=== PATIENT | male | born 1950 | race Caucasian/White ===

== ENCOUNTER → 2023-06-03 | Outpatient (CLI) | payer MEDICARE, SELFPAY ==
--- OUTSIDE RECORDS SUMMARY | 2023-06-03 09:54 | XMS RPT_ITS | CCD ---
Author Name Unknown Address [address] [place] [address] Organization [employer] Care Team Providers Care Bail Agent Name Role Phone Pavan Aguirre Primary Care Provider Robert Saucedo Unavailable Unavailable Pavan Aguirre Unavailable Unavailable Pavan Aguirre Unavailable Unavailable Ronny Callaway Unavailable Unavailable Pavan Aguirre Primary Care Provider [phone] Pavan Aguirre Unavailable Unavailable Unavailable Pavan Aguirre PA-C Primary Care [facility] er PAVAN AGUIRRE Primary Care Unavaila LEYLA De Leon Referring Unavailable LEYLA DAMON Attending Unavailable Pavan Agiurre PA-C Primary Care [facility] er KRISTINA CARVAJAL Referring Unavailab PAVAN Polanco Primary Care Unavaila PORFIRIO Bolden Attending PORFIRIO Gambino Referring PORFIRIO Gambino Primary Care PORFIRIO Gambino Attending PORFIRIO Gambino Referring PORFIRIO Gambino Primary Care PORFIRIO Gambino Attending PORFIRIO Gambino Referring PORFIRIO Gambino Primary Care Pavan Gambino PA-C Primary Care Provider Ms Norah. Pavan Jacksonh Referring Unav ailable [place], Ms. Pavan Leticia Attending Unav ailable Norah, Ms. [facility] Primary Care Unav ailable PAVAN AGUIRRE Attending Unavailable PAVAN AGUIRRE Primary Care Unavailable PAVAN AGUIRRE Attending Unavailable PAVAN AGUIRRE Primary Care Unavailable PAVAN AGUIRRE Attending Unavailable PAVAN AGUIRRE Primary Care Unavailable Norah MONROY, [facility] Provid er NORAH, [facility] Unavaila ble HEIDI TEJEDA Attending Unavailable NORAH [facility] Unavaila KRISTINA Sands Attending Unavailab KRISTINA Bangura Referring Unavailab KRISTINA Bangura Admitting Unavailab le NORAH, [facility] Unavaila ble LEYLA DAMON [facility] Un[facility]YLA DAMON Admitting Unavailable LEYLA DAMON [facility] LEYLA DAMON Attending Unavailable NORAH, [facility] Unavaila ble KRISTINA CARVAJAL Attending Unavailab le NORAH, [facility] Care Unavaila ble NORAH, [facility] Unavaila ble KRISTINA CARVAJAL Attending Unavailab le NORAH, [facility] Unavaila ble KRISTINA CARVAJAL Attending Unavailab KRISTINA Bangura Admitting Unavailab le NORAH, [facility] Unavaila ble KRISTINA CARVAJAL Referring Unavailab le NORAH, [facility] Unavaila KRISTINA Sands Admitting Unavailab KRISTINA Bangura Referring Unavailab le NORAH, [facility] Unavaila ble GENTRY CHAN Attending Unavailable LEYLA DAMON Admitting Unavailable LEYLA DAMON Referring Unavailable [place], [facility] Unavaila ble CRISTEL TEJEDA Attending Unavailable LEYLA DAMON Admitting Unavailable DAMONLEYLA CASPER Referring Unavailable NORAH, [facility] Unavaila ble YOGESH MARVIN Attending Unavailable LEYLA DAMON Admitting Unavailable DAMONLEYLA Referring Unavailable RENEE, KRISTINA AVILES Admitting Unavailab le NORAH, [facility] Unavaila ble CRISTEL TEJEDA Attending Unavailable RENEE, KRISTINA AVILES Referring Unavailab le RENEE, KRISTINA AVILES Referring Unavailab le RENEE, KRISTINA AVILES Admitting Unavailab le NORAH, [facility] Unavaila ble YOGESH MARVIN Attending Unavailable NORAH, [facility] Unavaila ble GENTRY CHAN Attending Unavailable DAMONLEYLA Admitting Unavailable DAMON, LEYLA KELLEY Referring Unavailable NORAH, [facility] Unavaila ble DAMON, LEYLA KELLEY Admitting Unavailable DAMONLEYLA Referring Unavailable JOSE LOZANO Attending Unavailable NORAH, [facility] Unavaila ble DAMONLEYLA Admitting Unavailable DAMONLEYLA Referring Unavailable JOSE LOZANO Att[facility] DAMON, LEYLA KELLEY Admitting Unavailable DAMONLEYLA Referring Unavailable JOSE LOZANO Attending [facility] DAMONLEYLA Referring Unavailable DAMONLEYLA Attending Unavailable RENEE, KRISTINA AVILES Attending Unavailab le RENEE, KRISTINA AVILES Admitting Unavailab le NORAH, [facility] Unavaila ble RENEE, KRISTINA AVILES Admitting Unavailab le NORAH, [facility] Unavaila ble Allergies Allergy Classification Reported Allergen(s) Allergy Type Date of Onset Reaction(s) Facility Adrenergic Antagonists (3 sources) Terazosin; Translations: [Hytrin] Drug Allergy Dizziness [facility] Work Phone: Angiotensin Converting Enzyme (GRETA) Inhibitors (3 sources) Lisinopril; Translations: [lisinopril] Drug Allergy Cough [facility] Work Phone: (20 sources) Lisinopril; Translations: [lisinopril] Drug Allergy 2 Cough, Other (See Comments) [facility] (16 sources) Terazosin; Translations: [Hytrin] Drug Allergy Dizziness [facility] Work Phone: (20 sources) Terazosin; Translations: [TERAZOSIN] Drug Allergy 2 Other (See Comments), Dizziness [facility] (20 sources) cloNIDine; Translations: [CLONIDINE] Drug Allergy 2 Other (See Comments) [facility] (20 sources) hydrALAZINE; Translations: [HYDRALAZINE] Drug Allergy 2 Headache [facility] (20 sources) hydroCHLOROthiaz tadeo; Translations: [HYDROCHLOROTHIA ZIDE] Drug Allergy 2 Other (See Comments) [facility] Medications Current Medications Medication Drug Class(es) Dates Sig (Normalized) Sig (Original) acetaminophen 500 mg oral tablet (20 sources) take 2 tablets by mouth once daily as needed acetaminophen (TYLENOL) 500 MG tablet Take 2 (two) tablets (1,000 mg total) by mouth once daily Takes as needed . 0 Active amLODIPine 10 mg oral tablet (20 sources) Dihydropyridine [facility] Start: 02-25-2022 End: 01-07-2023 take 1 tablet by mouth once daily amLODIPine (Norvasc) 10 mg tablet Indications: Benign essential hypertension Take 1 tablet (10 mg) by mouth once daily. 90 tablet 3 01/07/2023 Active Completed/Discontinued Medications Medication Drug Class(es) Dates Sig (Normalized) Sig (Original) acetaminophen 325 mg / HYDROcodone bitartrate 5 mg oral tablet (8 sources) Opioid Agonist Start: 04-01-2022 End: 04-08-2022 HYDROcodone-acetam inophen (NORCO) 5-325 mg per tablet Indications: Status post total replacement of left hip [The details of the medication are not available because there are pending changes by a home health clinician.] 40 tablet 0 04/01/2022 04/08/2022 ascorbic acid 60 mg / beta carotene 5000 unt / copper sulfate 40 mg / dl-alpha tocopheryl acetate 30 unt / sodium selenite 0.04 mg / zinc oxide 40 mg oral tablet (1 source) Vitamin C take 1 tablet by mouth once daily Multi Vitamin/Minerals Oral Tablet TAKE 1 TABLET DAILY. Refills: 0 Active Calcium-Vitamin D TABS (1 source) Vitamin D Calcium-Vitamin D TABS 1 TAB DAILY Refills: 0 Active Calcium-Vitamin D TABS (18 sources) Calcium-Vitamin D TABS 1 TAB DAILY Quantity: 0 Refills: 0 Ordered: 23-Jun-2019 DO Active cloNIDine (20 sources) Central alpha-2 Adrenergic Agonist End: 03-03-2022 CLONIDINE HCL ORAL Take by mouth . 0 03/03/2022 Discontinued (Side effects) Problems Active Problems Problem Classification Problem Date Documented Date Episodic/Chronic Anxiety disorders (20 sources) Anxiety; Translations: [Other anxiety states] Onset: 01-06-2022 01-06-2022 Chronic Disorders of lipid metabolism (20 sources) Mixed hyperlipidemia; Translations: [Mixed hyperlipidemia] Onset: 01-06-2022 01-06-2022 Chronic Essential hypertension (20 sources) Benign essential hypertension; Translations: [Benign essential hypertension] Onset: 07-05-2022 Chronic Glaucoma (20 sources) Glaucoma; Translations: [Unspecified glaucoma] Onset: 07-05-2022 07-05-2022 Chronic Heart valve disorders (1 source) Aortic valve regurgitation; Translations: [Nonrheumatic aortic (valve) insufficiency] Chronic Hyperplasia of prostate (20 sources) Benign prostatic hyperplasia; Translations: [Hypertrophy (benign) of prostate without urinary obstruction and other lower urinary tract symptom (LUTS)] Onset: 01-06-2022 01-06-2022 Chronic Immunizations and screening for infectious disease (20 sources) Patient encounter status; Translations: [Need for prophylactic vaccination and inoculation against unspecified single disease] Episodic Joint disorders and dislocations; trauma-related (20 sources) Articular cartilage disorder of shoulder region; Translations: [Glenoid labrum tear] Onset: 07-05-2022 07-05-2022 Chronic Osteoarthritis (20 sources) Osteoarthritis of joint of left shoulder region; Translations: [Osteoarthrosis, localized, primary, shoulder region] Onset: 01-14-2022 Resolved: 08-20-2022 Chronic Other aftercare (2 sources) Aftercare following joint replacement surgery; Translations: [Aftercare following joint replacement surgery] Onset: 04-01-2022 Chronic Other aftercare (2 sources) Encounter for follow-up examination after completed treatment for conditions other than malignant neoplasm; Translations: [Encounter for follow-up examination after completed treatment for conditions other than malignant neoplasm] Onset: 05-15-2023 Episodic Other and ill-defined heart disease (1 source) Left ventricular hypertrophy; Translations: [Cardiomegaly] Chronic Other connective tissue disease (2 sources) History of repair of hip joint; Translations: [Presence of left artificial hip joint] Chronic Other connective tissue disease (2 sources) Presence of left artificial hip joint; Translations: [Presence of left artificial hip joint] Onset: 04-01-2022 Chronic Other connective tissue disease (7 sources) History of reverse prosthetic total arthroplasty of left shoulder; Translations: [Presence of left artificial shoulder joint] Onset: 05-26-2023 04-15-2023 Chronic Other connective tissue disease (4 sources) Presence of left artificial shoulder joint; Translations: [Presence of left artificial shoulder joint] Onset: 04-15-2023 Chronic Other connective tissue disease (2 sources) Complete rotator cuff tear or rupture of left shoulder, not specified as traumatic; Translations: [Complete rotator cuff tear or rupture of left shoulder, not specified as traumatic] Onset: 02-10-2023 Episodic Other ear and sense organ disorders (15 sources) Otalgia; Translations: [Otalgia, unspecified] Episodic Other male genital disorders (1 source) Impotence; Translations: [Erectile dysfunction] Chronic Other male genital disorders (20 sources) Male erectile dysfunction, unspecified; Translations: [Erectile dysfunction] Onset: 07-05-2022 07-05-2022 Chronic Other nervous system disorders (3 sources) Other specified disorders of brain; Translations: [Other specified disorders of brain] Onset: 01-15-2023 Chronic Other nervous system disorders (16 sources) Arachnoid cyst; Translations: [Cerebral cysts] Onset: 01-27-2023 01-27-2023 Chronic Other nervous system disorders (16 sources) Encephalomalacia; Translations: [Other specified disorders of brain] Onset: 01-15-2023 01-27-2023 Chronic Other nervous system disorders (2 sources) Cerebral cysts; Translations: [Cerebral cysts] Onset: 01-27-2023 Chronic Other nervous system disorders (19 sources) Trigeminal neuralgia; Translations: [Trigeminal neuralgia] Episodic Other nervous system disorders (3 sources) Left trigeminal neuralgia; Translations: [Trigeminal neuralgia] Onset: 07-05-2022 07-05-2022 Episodic Other nutritional; endocrine; and metabolic disorders (20 sources) Obesity; Translations: [Obesity, unspecified] Onset: 01-06-2022 01-06-2022 Chronic Other nutritional; endocrine; and metabolic disorders (3 sources) Body mass index 30+ - obesity; Translations: [Body Mass Index 31.0-31.9, adult] Chronic Other nutritional; endocrine; and metabolic disorders (2 sources) Other obesity due to excess calories; Translations: [Other obesity due to excess calories] Onset: 08-20-2022 Chronic Other nutritional; endocrine; and metabolic disorders (2 sources) Body mass index (BMI) 33.0-33.9, adult; Translations: [Body mass index (BMI) 33.0-33.9, adult] Onset: 08-20-2022 Chronic Other nutritional; endocrine; and metabolic disorders (2 sources) Body mass index 25-29 - overweight; Translations: [Body Mass Index 28.0-28.9, adult] Episodic Other nutritional; endocrine; and metabolic disorders (1 source) Overweight in adulthood with body mass index of 25 or more but less than 30; Translations: [Body Mass Index 28.0-28.9, adult] Episodic Residual codes; unclassified (20 sources) Obstructive sleep apnea of adult; Translations: [Obstructive sleep apnea (adult)(pediatric)] Onset: 07-05-2022 07-05-2022 Chronic Residual codes; unclassified (2 sources) Obstructive sleep apnea (adult) (pediatric); Translations: [Obstructive sleep apnea (adult) (pediatric)] Onset: 07-05-2022 Chronic Residual codes; unclassified (1 source) Edema of lower extremity; Translations: [Localized edema] Episodic Residual codes; unclassified (3 sources) Memory impairment; Translations: [Other amnesia] Onset: 01-27-2023 01-07-2023 Episodic Residual codes; unclassified (5 sources) Other amnesia; Translations: [Other amnesia] Onset: 01-07-2023 Episodic Spondylosis; intervertebral disc disorders; other back problems (20 sources) Degeneration of intervertebral disc; Translations: [Degeneration of intervertebral disc, site unspecified] Onset: 07-05-2022 07-05-2022 Chronic Sprains and strains (1 source) Glenoid labrum tear; Translations: [Degenerative tear of glenoid labrum of left shoulder] Episodic Past or Other Problems Problem Classification Problem Date Documented Date Episodic/Chronic Deficiency and other anemia (20 sources) Anemia; Translations: [Anemia, unspecified] Onset: 01-06-2022 Resolved: 08-20-2022 01-06-2022 Episodic Diabetes mellitus without complication (20 sources) Impaired glucose tolerance; Translations: [Impaired glucose tolerance test (oral)] Onset: 07-05-2022 07-05-2022 Episodic Osteoarthritis (1 source) Osteoarthritis of joint of left shoulder region; Translations: [Primary osteoarthritis of left shoulder] Other connective tissue disease (20 sources) Nontraumatic complete rupture of rotator cuff of left shoulder; Translations: [Complete rotator cuff tear or rupture of left shoulder, not specified as traumatic] Onset: 02-10-2023 02-03-2023 Episodic Other ear and sense organ disorders (6 sources) Pain of ear structure; Translations: [Otalgia, unspecified] Onset: 07-05-2022 Resolved: 08-20-2022 08-20-2022 Episodic Other non-traumatic joint disorders (20 sources) Shoulder pain; Translations: [Pain in joint, shoulder region] Onset: 07-05-2022 Resolved: 08-20-2022 08-20-2022 Episodic Other non-traumatic joint disorders (13 sources) Hip pain; Translations: [Pain in joint, pelvic region and thigh] Onset: 07-05-2022 Resolved: 08-20-2022 08-20-2022 Episodic Other screening for suspected conditions (not mental disorders or infectious disease) (20 sources) Decreased testosterone level ; Translations: [Other nonspecific findings on examination of blood] Onset: 02-14-2019 Episodic Results Test Name Value Interpretation Reference Range Facil ity Vital Signs Date Time Vital Sign Value Performing Clinician Faci [facility] 03-13-2023 14:26-040 Body height 180.3 cm Kristina Carvajal MD Work Phone: [facility] 03-13-2023 14:26-0400 Body mass index (BMI) [Ratio] 32.36 kg/m2 Kristina Carvajal MD Work Phone: [facility] 03-13-2023 14:26-0400 Body weight 105.23 kg Kristina Carvajal MD Work Phone: [facility] 03-13-2023 14:26-0400 Diastolic blood pressure 81 mm[Hg] Kristina Carvajal MD Work Phone: [facility] 03-13-2023 14:26-0400 Heart rate 78 /min Kristina Carvajal MD Work Phone: [facility] 03-13-2023 14:26-0400 Systolic blood pressure 135 mm[Hg] Kristina Carvajal MD Work Phone: [facility] 03-12-2023 10:55-0400 Body height 180.3 cm Joint [facility] 03-12-2023 10:55-0400 Body mass index (BMI) [Ratio] 32.36 kg/m2 [facility] 03-12-2023 10:55-0400 Body weight 105.23 kg [facility] 03-12-2023 10:55-0400 Diastolic blood pressure 82 mm[Hg] [facility] 03-12-2023 10:55-0400 Heart rate 70 /min [facility] 03-12-2023 10:55-0400 SaO2% (BldA) [Mass fraction] 95 % [facility] 03-12-2023 10:55-0400 Systolic blood pressure 147 mm[Hg] [facility] 02-03-2023 09:03-0400 Body height 180.3 cm Leyla Damon CNP Work Phone: [facility] 01-27-2023 09:03-0400 Body height 180.3 cm Pavan Aguirre PA-C Work Phone: [facility] 01-27-2023 09:03-0400 Body mass index (BMI) [Ratio] 32.64 kg/m2 Pavan Aguirre PA-C Work Phone: [facility] 01-27-2023 09:03-0400 Body weight 106.14 kg Pavan Aguirre PA-C Work Phone: [facility] 01-27-2023 09:03-0400 Diastolic blood pressure 88 mm[Hg] Pavan Corinth PA-C Work Phone: [facility] 01-27-2023 09:03-0400 Heart rate 71 /min Pavan Norah PA-C Work Phone: [facility] 01-27-2023 09:03-0400 Systolic blood pressure 132 mm[Hg] Pavan Norah PA-C Work Phone: [facility] 01-07-2023 15:02-0400 Body height 180.3 cm Pavan Corinth PA-C Work Phone: [facility] 01-07-2023 15:02-0400 Body mass index (BMI) [Ratio] 32.92 kg/m2 Pavan Corinth PA-C Work Phone: [facility] 01-07-2023 15:02-0400 Body weight 107.05 kg Pavan Norah PA-C Work Phone: [facility] 01-07-2023 15:02-0400 Diastolic blood pressure 84 mm[Hg] Pavan Norah PA-C Work Phone: [facility] 01-07-2023 15:02-0400 Heart rate 76 /min Pavan Norah PA-C Work Phone: [facility] 01-07-2023 15:02-0400 Systolic blood pressure 136 mm[Hg] Pavan Corinth PA-C Work Phone: [facility] 01-06-2023 13:27-0400 Body height 180.3 cm Leyla Damon [employer] Work Phone: [facility] 01-06-2023 13:27-0400 Body mass index (BMI) [Ratio] 33.05 kg/m2 Leyla Damon [employer] Work Phone: [facility] 01-06-2023 13:27-0400 Body weight 107.5 kg Leyla Damon [employer] Work Phone: [facility] 08-19-2022 10:00-0400 Diastolic blood pressure 82 mm[Hg] Heidi Tejeda MD Work Phone: [facility] Encounters Encounter Date Encounter Type Care Provider Facility Start: 06-02-2023 ambulatory KRISTINA CARVAJAL [facility] Start: 06-02-2023 End: 06-02-2023 ambulatory Kristina Carvajal MD Work Phone: [facility] Procedures Date Procedure Procedure Detail Performing Clinician Start: 08-11-2022 Lipid 1996 panel - S lorena or Plasma Pavan Aguirre PA-C Work Phone: Start: 03-03-2022 Ecg routine ecg w/le ast 12 lds w/i&r Heidi Tejeda MD Work Phone: Start: 11-21-2019 Blood count complete auto&auto difrntl wbc Robert Saucedo Start: 11-21-2019 Comprehensive metabo lic 2000 panel Robert Sheryl Start: 11-21-2019 Hemoglobin glycosyla da a1c Robert Saucedo Start: 11-21-2019 Lipid panel Robert Almanza angela Start: 11-21-2019 PSA screening Robert Pablo reyes Start: 05-27-2019 Magnetic resonance imaging External Transcribed Start: 05-27-2019 End: 05-27-2019 Radiographic imaging procedure External Transcribed Start: 02-14-2019 [object Object] Plan of Treatment Date Care Activity Detail Author Start: 08-12-2027 Lipid panel Lipid Panel [facility] Start: 05-14-2027 Screening for malign ant neoplasm of colon [facility] Start: 08-22-2023 Medicare Annual Wellness Visit Medicare Annual Wellness Visit (AWV) [facility] Start: 08-21-2023 History and physical examination, annual for health maintenance Wellness Visit [facility] Start: 08-19-2023 End: 08-19-2023 Patient encounter procedure 08/19/2023 9:00 AM EDT Office Visit [facility] [address] [place] [phone] Pavan Aguirre PA-C [address] [place] [id number] [facility] Start: 08-12-2023 Diabetes mellitus screening Diabetes Screening [facility] Start: 08-12-2023 Hemoglobin A1c measurement Diabetes: Hemoglobin A1C [facility] Start: 06-04-2023 End: 06-04-2023 ambulatory [facility] Start: 06-02-2023 End: 06-02-2023 ambulatory 06/02/2023 8:30 AM EST [facility] [address] [place] [address] Kristina Carvajal MD [address] [place] [address] Yogesh Marvin PTA Discharge Disposition: Home [facility] Start: 05-15-2023 End: 05-15-2023 Follow-up encounter 05/15/2023 2:45 PM EST Follow-Up [facility] [address] [place] [address] Kristina Carvajal MD [address] [place] [address] [facility] Start: 04-15-2023 End: 04-15-2023 Follow-up encounter 04/15/2023 3:45 PM EST Follow-Up [facility] [address] [place] [address] Kristina Carvajal MD [address] [place] [address] [facility] Start: 04-01-2023 End: 04-01-2023 Admission to same day surgery center 04/01/2023 11:58 AM EDT - 04/01/2023 2:16 PM EDT Surgery [facility] [address] [place] [address] Kristina Carvajal MD [address] [place] [address] Left total shoulder replacement, possible reverse total shoulder replacement [facility] Immunizations Immunization Date Immunization Notes Care Provider Fa cility 03-07-2022 Pfizer COVID-19 Vac Bivalent 30 MCG/0.3ML Intramuscular Suspension Pavan Aguirre Work Phone: [facility] 02-05-2022 Fluzone High-Dose Quadrivalent 0.7 ML Intramuscular Suspension Prefilled Syringe; Translations: [Fluzone High-Dose Quadrivalent 0.7 ML Intramuscular Suspension Prefilled Syringe] Pavan Aguirre Work Phone: [facility] Work Phone: Payers Date Payer Category Payer Medicare [id number] 2021 Medicare [id number] 2018 Unknown [employer] S UPER[employer] PPO xxxxxxxxxxxx 2018-Present [id number] 2018 Unknown M[employer] UPER[employer] PPO [id number] 2018-Present [id number] 1950 Unknown [id number] 2.16.840.1.503282.3.579.2 .900 1950 Unknown [id number] 2.16.840.1.469871.3.579.2 .903 1950 Unknown [id number] 2.16.840.1.929044.3.579.2 .356 1950 Unknown [id number] 2.16.840.1.087839.3.579.2 .356 1950 Unknown [id number] 2.16.840.1.817093.3.579.2 .356 1950 Unknown [id number] 2.16.840.1.332616.3.579.2 .1069 1950 Unknown [id number] 2.16.840.1.497498.3.579.2 .1244 1950 Unknown [id number] 2.16.840.1.866601.3.579.2 .1244 1950 Unknown [id number] 2.16.840.1.820675.3.579.2 .1244 1950 Unknown [id number] 2.16.840.1.755529.3.579.2 .903 1950 Unknown [id number] 2.16.840.1.731609.3.579.2 .903 1950 Unknown [id number] 2.16.840.1.635168.3.579.2 .903 1950 Unknown [id number] 2.16.840.1.551373.3.579.2 .903 1950 Unknown [id number] 2.16.840.1.635405.3.579.2 .903 1950 Unknown [id number] 2.16.840.1.823232.3.579.2 .903 1950 Unknown [id number] 2.16.840.1.957962.3.579.2 .903 1950 Unknown [id number] 2.16.840.1.514556.3.579.2 .903 1950 Unknown [id number] 2.16.840.1.571446.3.579.2 .903 1950 Unknown [id number] 2.16.840.1.988545.3.579.2 .903 1950 Unknown [id number] 2.16.840.1.243170.3.579.2 .903 1950 Unknown [id number] 2.16.840.1.729519.3.579.2 .903 1950 Unknown [id number] 2.16.840.1.096275.3.579.2 .903 1950 Unknown [id number] 2.16.840.1.934289.3.579.2 .90 1950 Unknown [id number] 2.16.840.1.384399.3.579.2 .903 1950 Unknown [id number] 2.16.840.1.758031.3.579.2 .90 1950 Unknown [id number] 2.16.840.1.067096.3.579.2 .903 1950 Unknown [id number] 2.16840.1.265971.3.579.2 .90 1950 Unknown [id number] 2.16.840.1.513909.3.579.2 .903 1950 Unknown [id number] 2.16.840.1.529576.3.579.2 .903 1950 Unknown [id number] 2.16840.1.304075.3.579.2 .903 1950 Unknown [id number] 2.16840.1.394264.3.579.2 .90 1950 Unknown [id number] 2.16840.1.930715.3.579.2 .903 Private Health Insurance [id number] Unknown Social History Date Type Detail Facility Start: 05-18-2019 End: 01-06-2022 Tobacco smoking status NHIS Never smoker [facility] Start: 05-18-2019 Alcohol intake Ex-drinker (finding) [facility] Start: 1950 Sex Assigned At Not on file [facility] Start: 05-18-2019 End: 01-06-2022 Tobacco use and exposure Never used [facility] Start: 01-06-2022 End: 05-16-2023 Non-smoker Non-smoker -[facility] Work Phone: Start: 01-06-2022 End: 06-02-2023 Alcohol intake Current drinker of alcohol (finding) [facility] Start: 12-27-2021 End: 01-07-2023 Exposure to SARS-CoV-2 (event) Not sure [facility] Start: 03-13-2022 Alcohol Comment occasional wine [facility] Start: 01-07-2023 End: 05-16-2023 Tobacco use panel [facility] Work Phone: Start: 08-20-2022 Alcohol Comment SOMETIMES [facility] Work Phone: Start: 05-17-2019 Gender identity Identifies as male gender (finding) [facility] Start: 05-17-2019 Sexual orientation Heterosexual (finding) [facility] Medical Equipment Procedure Code Equipment Code Equipment Origin al Text Equipment Identifier Dates Head 36mm/+5 Fem V40 Biolox Delta - [id number] FDA Start: 03-31-2022 Insert 9 X 39mm C 7.5 Hum Retentive Reversed Ascend Flex - [id number] Start: 04-01-2023 Functional Status Date Assessment Result Facility NEGATED: Highlighted row Functional performance Functional status health issues are not documented [facility] Work Phone: Mental Status Date Assessment Result Facility NEGATED: Highlighted row Cognitive function [Interpretation] Cognitive status health issues are not documented [facility] Work Phone: Clinical Notes 04-30-2021 to 06-02-2023 Yogesh Marvin, TELEPHONE INTERVIEWER - 06/02/2023 8:30 AM Cristel Baez PT - 05/26/2023 3:15 PM Larissa Graham LPN - 04/06/2023 3:47 PM Nikki Brown - Bita Valdez RN - 03/12/2023 1:04 PM EDT Note Date & Type Note Facility 06-02-2023 History of Presen t illness Narrative [facility] OUTPATIENT REHABILITATION DAILY TREATMENT NOTE Today's Date 06/02/2023 Patient Name: Franco Clayton Date of : 1950 Current Visit #: 2 Authorized Visits: [id number] Case Name: Status post reverse arthroplasty of left shoulder History: Pre-Treatment Pain Scale: 0 Symptoms: gradually improved Functional Diagnosis: No diagnosis found. Clinical Information: Subjective: Pt reports no pain but twinges of pain with certain movements. Pt limited with reaching behind back and across body d/t weakness and tightness. Pt compliant with HEP. Objective Treatments: Physical Therapy Exercise Log - 06/02/2327 OTHER Precautions/Contraindications Status post reverse arthroplasty of left shoulder 04/01/23, progressive strengthening Notes Visit 1: 8:30 - 9:15 Therapeutic Exercise (44250) Intervention UBE - x4 min L4 fwd/back alt every minute Parameters doorway pec stretch, IR, ER stretch - 20 sec x3 Intervention Posterior capsule stretch - 20 sec x3 Parameters Cane ext, and up back - x15 Intervention Rows, Ext - x20 L3 Parameters HABD, ER - x15 RTB Parameters Access Code: [email or web address] URL: [email or web address] Date: 05/26/2023 Prepared by: Cristel Tejeda Exercises - Isometric Shoulder Flexion at Wall - 1-2 x daily - 5 reps - 5 seconds hold - Isometric Shoulder Abduction at Wall - 1-2 x daily - 5 reps - 5 seconds hold - Isometric Shoulder Extension at Wall - 1-2 x daily - 5 reps - 5 seconds hold - Sidelying Shoulder External Rotation - 1 x daily - 1-3 sets - 10 reps - Standing Single Arm Elbow Flexion with Resistance - 1 x daily - 3 sets - 10 reps - Standing Elbow Extension with Self-Anchored Resistance - 1 x daily - 7 x weekly - 3 sets - 10 reps - Scaption with Dumbbells - 1 x daily - 7 x weekly - 3 sets - 10 reps - Standing Shoulder Flexion to 90 Degrees with Dumbbells - 1 x daily - 7 x weekly - 3 sets - 10 reps - Single Arm Serratus Punches in Supine with Dumbbell - 1 x daily - 7 x weekly - 3 sets - 10 reps PT Treatment Times Therex Total Time 45 Direct Treatment Time 45 Total Treatment Time 45 Goals: Physical Therapy Ortho Goals: Patient will demonstrate good adherence to HEP recommendations and current restrictions. 2 weeks Patient will be independent with HEP. 4 weeks Patient will demonstrate improved AROM shoulder flexion and scaption 120+ to reach, self care, dress with ease. 2-3 weeks. Patient will demonstrate improved shoulder strength 4+/5 for ease of light ADLs. 2-3 weeks Patient will improve FOTO score to at least 70 (predicted) from 62 to show MDC/MCII and expected functional outcome.2-3 weeks Patient Education: Quality of movement with patient demonstrated understanding. Post-Treatment Pain Scale: 0 Assessment: Patient had an expected response to treatment. Skilled Intervention demonstrated by modifications of treatment per exercise log including increased load and safety interventions per exercise log. Progress towards goals as expected. Plan for Next Visit: Treatment Visit with focus on strengthening and ROM progression Yogesh Marvin PTA STATE LICENSE, [id number] documented in this encounter [facility] 05-26-2023 History of Presen t illness Narrative [facility] OUTPATIENT REHABILITATION Evaluation Today's Date 05/26/2023 Patient Name: Franco Clayton Date of : 1950 Case Name: Status post reverse arthroplasty of left shoulder Functional Diagnosis: 1. Status post reverse arthroplasty of left shoulder Clinical Information: Subjective Referring Diagnosis: Status post reverse arthroplasty of left shoulder History of Present Illness Surgery Date: 04/01/2023 Days Post-Op: 55 Subjective History: Patient presents to physical therapy S/P reverse TSA on 04/01/2023. He reports recovering well. He has good motion and strength is getting back. He reports twinges here and there at shoulder with certain motion. But no consistent pain and not taking any medication for pain. He has been using arm for self care, ADLs. He would like to learn some exercises to improve reaching behind and and cross arm. He has been compliant with exercises at home. Pain Scale Pain location: shoulder Average Pain: 0/10 Pain at highest: 2/10 (twinging sometimes with certain motion) Personal Goals: Wants to learn some exercises to improve strength Social Support: Zoroastrian, social, or cultural considerations to be made aware of before starting treatment: No Sleep Assessment Average Sleep: always had hard time sleeping. Sleep disturbance: Sleep Disturbance Zoroastrian, social, or cultural considerations to be made aware of before starting treatment: No Shoulder Left Shoulder Range of Motion: Flexion: Active: 110 Passive: 122 Abduction: Active: 95 Passive: 105 ER 0 deg.: Active: 50 (@45) Muscle Strength: Flexion: 4+ Abduction: 4 IR: 4 ER: 4+ Treatments: Physical Therapy Exercise Log - 05/26/23 1536 OTHER Precautions/Contraindications Status post reverse arthroplasty of left shoulder 04/01/23, progressive strengthening Therapeutic Exercise (52657) Parameters Access Code: [email or web address] URL: [email or web address] Date: 05/26/2023 Prepared by: Cristel Tejeda Exercises - Isometric Shoulder Flexion at Wall - 1-2 x daily - 5 reps - 5 seconds hold - Isometric Shoulder Abduction at Wall - 1-2 x daily - 5 reps - 5 seconds hold - Isometric Shoulder Extension at Wall - 1-2 x daily - 5 reps - 5 seconds hold - Sidelying Shoulder External Rotation - 1 x daily - 1-3 sets - 10 reps - Standing Single Arm Elbow Flexion with Resistance - 1 x daily - 3 sets - 10 reps - Standing Elbow Extension with Self-Anchored Resistance - 1 x daily - 7 x weekly - 3 sets - 10 reps - Scaption with Dumbbells - 1 x daily - 7 x weekly - 3 sets - 10 reps - Standing Shoulder Flexion to 90 Degrees with Dumbbells - 1 x daily - 7 x weekly - 3 sets - 10 reps - Single Arm Serratus Punches in Supine with Dumbbell - 1 x daily - 7 x weekly - 3 sets - 10 reps Treatment Plan: Frequency of Visits: twice per week Duration: 2-3 weeks Interventions: Therapeutic Exercise (91461) and Manual Therapy (15570) Rehab Potential: Good Goals: Physical Therapy Ortho Goals: Patient will demonstrate good adherence to HEP recommendations and current restrictions. 2 weeks Patient will be independent with HEP. 4 weeks Patient will demonstrate improved AROM shoulder flexion and scaption 120+ to reach, self care, dress with ease. 2-3 weeks. Patient will demonstrate improved shoulder strength 4+/5 for ease of light ADLs. 2-3 weeks Patient will improve FOTO score to at least 70 (predicted) from 62 to show MDC/MCII and expected functional outcome.2-3 weeks Patient Education provided: Patient was educated about the condition, precautions, and physical therapy plan of care. Clinical Impression: Pt is a 72 y.o. year old male who presented to the clinic with L reverse TSA. Upon assessment, pt has been found with the following impairments: functional ROM, decreased strength and endurance and coordination. 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 Pt to be discharged from OP PT services if/when goals are met, if they fail to make progress with conservative management in PT, if their level of progress plateaus, or if they do not maintain compliance with attendance or HEP. At this time, it is my clinical judgment that services are medically necessary. Cristel Tejeda, PT STATE LICENSE, [id number] documented in this encounter [facility] 04-06-2023 History of Presen t illness Narrative I spoke w Franco today and he says the shoulder is doing fine, no troubles w minimal pain. His swelling is about the same w some swelling into his upper arm, he does use ice on the shoulder. He continues to do his exercises, the swelling limits him but they are getting easier. His dressing has a few small spots of drainage and is intact. He did have some constipation and used the Miralax w good results yesterday. He denies any trouble w urination, no nausea, appetite is good and he is drinking his fluids. He tells me he gets a little light headed off and on. I questioned him about his narcotic usage but he has not had any for days. He did say he thought he was getting enough fluids but he will start to write down and keep track of that. He is taking 325mg ASA bid, 500mg Keflex tid, documented in this encounter [facility] 03-12-2023 Note Formatting of this n ote might be different from the original. Patient established Goals at [facility]. 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 Goals: Increase range of motion, movement of left arm above the shoulder Pain Goal: 09/08 If you have sleep apnea and have a CPAP/BIPAP mask, please bring it with you the day of surgery.Pt does not report any of the following: Ascites Fluid restriction: CHF, ESRD, Osakis's, Insulin pump for blood glucose control difficulty swallowing Neurological disease NPO due to alternative nutrition or IV nutrition Achalasia Severe gastroparesis Hiatal Hernia Severe GERD Partial or Total gastrectomy Gastric resection History of whipple procedure requiring jejunostomy tube placement Pt is a candidate for carb loading drink process. 3-8 oz Boost bottles given with instructions documented in this encounter [facility] 03-12-2023 History of Presen t illness Narrative Patient completed the Home Safety Assessment on date of [facility], with all questions answered. A copy of the Home Safety Assessment and surveys were provided. Care Management Consult Note Date: 03/12/2023 Time: 10:23 AM Patient Name: Franco Clayton Date of : 1950 Reason for Consult: Discharge Plan: Discharging Transportation Plan: Discharge Plan Status: Met with Franco Clayton during [place] on 03/12/2023. The patient is scheduled to have left Shoulder replacement surgery with Dr Carvajal on 03/30/2023. He lives with his , Ignacia, in a 1 story home with 3 steps and bilateral handrails to enter. She will assist the patient after surgery. The bedroom, bathroom, and laundry are all on the first floor. The bathroom has a walk-in shower with grab bars and a seat. The commode is handicap accessible with grab bars. Franco Clayton is not anticipated to need any home health care, but if he does, he wants [facility]. A referral will be made. Gave him a list for the [facility]. 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 Verified Franco Clayton address and phone number. Franco Clayton feels safe at home. Franco Clayton does have prescription coverage by [employer] and denies any financial concerns. MADINA Barboza Assessment and Background Information: Living Arrangements: Spouse/significant other Support Systems: Spouse/significant other Type of Residence: Private residence Prior to Admission Home Care Services: No documented in this encounter [facility] 03-12-2023 Note Formatting of this n ote is different from the original. If you have sleep apnea and have a CPAP/BIPAP mask, please bring it with you the day of surgery.Pt does not report any of the following: Ascites Fluid restriction: CHF, ESRD, Osakis's, Insulin pump for blood glucose control difficulty swallowing Neurological disease NPO due to alternative nutrition or IV nutrition Achalasia Severe gastroparesis Hiatal Hernia Severe GERD Partial or Total gastrectomy Gastric resection History of whipple procedure requiring jejunostomy tube placement Pt is a candidate for carb loading drink process. 3-8 oz Boost bottles given with instructions [facility] 03-12-2023 Note Formatting of this n ote is different from the original. If you have sleep apnea and have a CPAP/BIPAP mask, please bring it with you the day of surgery.Pt does not report any of the following: Ascites Fluid restriction: CHF, ESRD, Osakis's, Insulin pump for blood glucose control difficulty swallowing Neurological disease NPO due to alternative nutrition or IV nutrition Achalasia Severe gastroparesis Hiatal Hernia Severe GERD Partial or Total gastrectomy Gastric resection History of whipple procedure requiring jejunostomy tube placement Pt is a candidate for carb loading drink process. 3-8 oz Boost bottles given with instructions [facility] 03-12-2023 Note Formatting of this n ote is different from the original. If you have sleep apnea and have a CPAP/BIPAP mask, please bring it with you the day of surgery.Pt does not report any of the following: Ascites Fluid restriction: CHF, ESRD, Jacob's, Insulin pump for blood glucose control difficulty swallowing Neurological disease NPO due to alternative nutrition or IV nutrition Achalasia Severe gastroparesis Hiatal Hernia Severe GERD Partial or Total gastrectomy Gastric resection History of whipple procedure requiring jejunostomy tube placement Pt is a candidate for carb loading drink process. 3-8 oz Boost bottles given with instructions [facility] 03-12-2023 Note Formatting of this n ote is different from the original. If you have sleep apnea and have a CPAP/BIPAP mask, please bring it with you the day of surgery.Pt does not report any of the following: Ascites Fluid restriction: CHF, ESRD, Osakis's, Insulin pump for blood glucose control difficulty swallowing Neurological disease NPO due to alternative nutrition or IV nutrition Achalasia Severe gastroparesis Hiatal Hernia Severe GERD Partial or Total gastrectomy Gastric resection History of whipple procedure requiring jejunostomy tube placement Pt is a candidate for carb loading drink process. 3-8 oz Boost bottles given with instructions [facility] 03-12-2023 Instructions Padmini Post RN - 03/12/2023 11:04 AM EDT Preoperative Medication Instructions In preparation for surgery please continue all of your current medications with the following changes: Active Home Medications Medication Sig Take Last Dose On Take Morning of Surgery Comment(s) amLODIPine (NORVASC) 10 MG tablet Take 1 (one) tablet (10 mg total) by mouth daily . x ascorbic acid, vitamin C, (VITAMIN C) 500 MG tablet Take 2 (two) tablets (1,000 mg total) by mouth daily . Stop all supplements 1 week calcium carb/vit D3/minerals (CALCIUM-VITAMIN D ORAL) Take 1 Unspecified by mouth once daily . cholecalciferol, vitamin D3, 1,000 unit tablet Take 0.5 (one-half) tablet (500 Units total) by mouth daily . cyanocobalamin, vitamin B-12, (VITAMIN B12 ORAL) Take by mouth once daily . latanoprost (XALATAN) 0.005 % ophthalmic solution Administer 1 (one) drop to both eyes daily . X losartan (COZAAR) 50 MG tablet Take 1 (one) tablet (50 mg total) by mouth daily . multivitamin (THERAGRAN) per tablet Take 1 (one) tablet by mouth daily . omega-3 fatty acids/fish oil (fish oil-omega-3 fatty acids) 300-1,000 mg capsule Take 2 (two) capsules by mouth daily . potassium 99 mg Tab Take by mouth once daily . SIMVASTATIN ORAL Take 40 mg by mouth daily . X tadalafiL 5 MG tablet Take 1 (one) tablet (5 mg total) by mouth daily as needed for erectile dysfunction . acetaminophen (TYLENOL) 500 MG tablet Take 2 (two) tablets (1,000 mg total) by mouth once daily Takes as needed . ibuprofen (ADVIL,MOTRIN) 400 MG tablet Take 1 (one) tablet (400 mg total) by mouth every 6 (six) hours as needed for pain . medium chain triglycerides (MCT OIL ORAL) Take by mouth daily . omega-3 acid ethyl esters (LOVAZA) 1 gram capsule Take 1 (one) capsule (1 g total) by mouth every 12 (twelve) hours Not taking . pantoprazole (PROTONIX) 20 MG tablet Take 1 (one) tablet (20 mg total) by mouth daily . (Patient not taking: Reported on 03/12/2023 .) polyethylene glycol (MIRALAX) 17 gram powder Take 17 (seventeen) g by mouth daily as needed (constipation) Not taking . STOP ( medications that contain aspirin, such as Kristie Termo, Pepto-Bismol, Anacin), antiinflammatory medications such as Advil, Motrin, Ibuprofen, Naproxen, Aleve, Kristie Termo, Pepto-Bismol, Anacin, Diclofenac, Voltaren, Daypro, Etodolac, Ketoprofen, Piroxicam, Relafen, Nabumetone, etc. Also discontinue Vitamin C, Vitamin E, Corona-3 Fatty Acid, Fish Oil or Lovaza, and all herbal medications DIRECTED BY SURGEON. Tylenol (acetaminophen) is acceptable(unless you have an allergy to this medication ), but be careful to follow the label directions and do not use with other pain medications. On the morning of surgery, with as little water as possible, ONLY take the medications listed above in the column Take the morning of surgery. If you are using Eye Drops or Inhalers, please bring them to the hospital. Patient Instructions for [facility]: Prior to surgery: Surgeon's office will contact you with the scheduled time of your surgery. You may use the [employer] parking available at the Main Entrance One family member may accompany you back into the Pre-Op Area. Do not eat or drink anything after midnight or as directed, including gum, mints, and cough drops. No smoking after midnight. No chewing tobacco after midnight. No alcohol 24 hours prior to your surgery. Please take any medications you have been instructed to take the morning of your surgery with small sips of water. Please be sure to wear comfortable, appropriate clothing. Please remove all jewelry and piercing's, including wedding rings. Leave all valuable items at home. Shower using anti-bacterial soap or as advised by your Surgeon's office Do not apply any makeup or lotions. Remove all nail namibian for surgeries involving extremities. Please remember to bring both your insurance card and a photo ID with you on the day of surgery. After your surgery: If you are having outpatient surgery - you must have a licensed regional truck driver to take you home. The expectation is that this regional truck driver will remain at the hospital for the duration of your procedure. You are advised to have a family member with you for at least 24 hours after being under Anesthesia. If you have sleep apnea and have a CPAP/BIPAP mask, please bring it with you the day of surgery. documented in this encounter [facility] 03-12-2023 Instructions Padmini Post RN - 03/12/2023 11:04 AM EDT Preoperative Medication Instructions In preparation for surgery please continue all of your current medications with the following changes: Active Home Medications Medication Sig Take Last Dose On Take Morning of Surgery Comment(s) amLODIPine (NORVASC) 10 MG tablet Take 1 (one) tablet (10 mg total) by mouth daily . x ascorbic acid, vitamin C, (VITAMIN C) 500 MG tablet Take 2 (two) tablets (1,000 mg total) by mouth daily . Stop all supplements 1 week calcium carb/vit D3/minerals (CALCIUM-VITAMIN D ORAL) Take 1 Unspecified by mouth once daily . cholecalciferol, vitamin D3, 1,000 unit tablet Take 0.5 (one-half) tablet (500 Units total) by mouth daily . cyanocobalamin, vitamin B-12, (VITAMIN B12 ORAL) Take by mouth once daily . latanoprost (XALATAN) 0.005 % ophthalmic solution Administer 1 (one) drop to both eyes daily . X losartan (COZAAR) 50 MG tablet Take 1 (one) tablet (50 mg total) by mouth daily . multivitamin (THERAGRAN) per tablet Take 1 (one) tablet by mouth daily . omega-3 fatty acids/fish oil (fish oil-omega-3 fatty acids) 300-1,000 mg capsule Take 2 (two) capsules by mouth daily . potassium 99 mg Tab Take by mouth once daily . SIMVASTATIN ORAL Take 40 mg by mouth daily . X tadalafiL 5 MG tablet Take 1 (one) tablet (5 mg total) by mouth daily as needed for erectile dysfunction . acetaminophen (TYLENOL) 500 MG tablet Take 2 (two) tablets (1,000 mg total) by mouth once daily Takes as needed . ibuprofen (ADVIL,MOTRIN) 400 MG tablet Take 1 (one) tablet (400 mg total) by mouth every 6 (six) hours as needed for pain . medium chain triglycerides (MCT OIL ORAL) Take by mouth daily . omega-3 acid ethyl esters (LOVAZA) 1 gram capsule Take 1 (one) capsule (1 g total) by mouth every 12 (twelve) hours Not taking . pantoprazole (PROTONIX) 20 MG tablet Take 1 (one) tablet (20 mg total) by mouth daily . (Patient not taking: Reported on 03/12/2023 .) polyethylene glycol (MIRALAX) 17 gram powder Take 17 (seventeen) g by mouth daily as needed (constipation) Not taking . STOP ( medications that contain aspirin, such as Kristie Termo, Pepto-Bismol, Anacin), antiinflammatory medications such as Advil, Motrin, Ibuprofen, Naproxen, Aleve, Kristie Termo, Pepto-Bismol, Anacin, Diclofenac, Voltaren, Daypro, Etodolac, Ketoprofen, Piroxicam, Relafen, Nabumetone, etc. Also discontinue Vitamin C, Vitamin E, Corona-3 Fatty Acid, Fish Oil or Lovaza, and all herbal medications DIRECTED BY SURGEON. Tylenol (acetaminophen) is acceptable(unless you have an allergy to this medication ), but be careful to follow the label directions and do not use with other pain medications. On the morning of surgery, with as little water as possible, ONLY take the medications listed above in the column Take the morning of surgery. If you are using Eye Drops or Inhalers, please bring them to the hospital. Patient Instructions for [facility]: Prior to surgery: Surgeon's office will contact you with the scheduled time of your surgery. You may use the [employer] parking available at the Main Entrance One family member may accompany you back into the Pre-Op Area. Do not eat or drink anything after midnight or as directed, including gum, mints, and cough drops. No smoking after midnight. No chewing tobacco after midnight. No alcohol 24 hours prior to your surgery. Please take any medications you have been instructed to take the morning of your surgery with small sips of water. Please be sure to wear comfortable, appropriate clothing. Please remove all jewelry and piercing's, including wedding rings. Leave all valuable items at home. Shower using anti-bacterial soap or as advised by your Surgeon's office Do not apply any makeup or lotions. Remove all nail namibian for surgeries involving extremities. Please remember to bring both your insurance card and a photo ID with you on the day of surgery. After your surgery: If you are having outpatient surgery - you must have a licensed regional truck driver to take you home. The expectation is that this regional truck driver will remain at the hospital for the duration of your procedure. You are advised to have a family member with you for at least 24 hours after being under Anesthesia. If you have sleep apnea and have a CPAP/BIPAP mask, please bring it with you the day of surgery. documented in this encounter [facility] 03-12-2023 Miscellaneous Notes If you have sleep apnea and have a CPAP/BIPAP mask, please bring it with you the day of surgery.Pt does not report any of the following: Ascites Fluid restriction: CHF, ESRD, Osakis's, Insulin pump for blood glucose control difficulty swallowing Neurological disease NPO due to alternative nutrition or IV nutrition Achalasia Severe gastroparesis Hiatal Hernia Severe GERD Partial or Total gastrectomy Gastric resection History of whipple procedure requiring jejunostomy tube placement Pt is a candidate for carb loading drink process. 3-8 oz Boost bottles given with instructions documented in this encounter [facility] 03-12-2023 History of Presen t illness Narrative Care Management Consult Note Date: 03/12/2023 Time: 10:23 AM Patient Name: Franco Clayton Date of : 1950 Reason for Consult: Discharge Plan: Discharging Transportation Plan: Discharge Plan Status: Met with Franco Clayton during [place] on 03/12/2023. The patient is scheduled to have left Shoulder replacement surgery with Dr Carvajal on 03/30/2023. He lives with his , Ignacia, in a 1 story home with 3 steps and bilateral handrails to enter. She will assist the patient after surgery. The bedroom, bathroom, and laundry are all on the first floor. The bathroom has a walk-in shower with grab bars and a seat. The commode is handicap accessible with grab bars. Franco Clayton is not anticipated to need any home health care, but if he does, he wants [facility]. A referral will be made. Gave him a list for the [place] area. 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 Verified Franco Clayton address and phone number. Franco Clayton feels safe at home. Fracno Clayton does have prescription coverage by [employer] and denies any financial concerns. MADINA Barboza Assessment and Background Information: Living Arrangements: Spouse/significant other Support Systems: Spouse/significant other Type of Residence: Private residence Prior to Admission Home Care Services: No documented in this encounter [facility] 02-03-2023 History of Presen t illness Narrative [facility] [address] [facility] [address] [facility] [id number] Chief Complaint Patient presents with Left Shoulder - Follow-up Franco Clayton returns to the office today for follow up on his left shoulder. I saw him about a month ago for left shoulder pain. We did imaging which showed severe degenerative changes of the left shoulder. He had been utilizing OTC pain medications without any type of pain relief. We did discuss continued conservative measures versus possible surgical intervention. We decided to bypass any cortisone injections given we would need to move forward with surgery, the patient did not want to wait 3 months to do so. I did start him in a course of outpatient physical therapy to see if this would help alleviate some of his symptoms but unfortunately at today's visit he reports no improvement after the physical therapy. He continues to have pain on a daily basis in addition to decreased range of motion and strength. He wishes to move forward with surgical intervention which we did briefly discuss would be a total shoulder replacement. The patient's past medical history, surgical history, social history, family history, medications and allergies were reviewed with the patient today and are available in the chart for further review. Allergies Allergen Reactions Clonidine Other (See Comments) Tired Hydralazine Headache Hydrochlorothiazide Other (See Comments) Hytrin [Terazosin] Other (See Comments) dizziness Lisinopril Cough Current Outpatient Medications: acetaminophen (TYLENOL) 500 MG tablet, Take 2 (two) tablets (1,000 mg total) by mouth once daily ., Disp: , Rfl: amLODIPine (NORVASC) 10 MG tablet, Take 1 (one) tablet (10 mg total) by mouth daily ., Disp: , Rfl: ascorbic acid, vitamin C, (VITAMIN C) 500 MG tablet, Take 2 (two) tablets (1,000 mg total) by mouth daily ., Disp: , Rfl: calcium carb/vit D3/minerals (CALCIUM-VITAMIN D ORAL), Take 1 Unspecified by mouth once daily ., Disp: , Rfl: cholecalciferol, vitamin D3, 1,000 unit tablet, Take 0.5 (one-half) tablet (500 Units total) by mouth daily ., Disp: , Rfl: cyanocobalamin, vitamin B-12, (VITAMIN B12 ORAL), Take by mouth once daily ., Disp: , Rfl: ibuprofen (ADVIL,MOTRIN) 400 MG tablet, Take 1 (one) tablet (400 mg total) by mouth every 6 (six) hours as needed for pain ., Disp: , Rfl: latanoprost (XALATAN) 0.005 % ophthalmic solution, Administer 1 (one) drop to both eyes daily ., Disp: , Rfl: losartan (COZAAR) 50 MG tablet, Take 1 (one) tablet (50 mg total) by mouth daily ., Disp: 30 tablet, Rfl: 11 medium chain triglycerides (MCT OIL ORAL), Take by mouth daily ., Disp: , Rfl: multivitamin (THERAGRAN) per tablet, Take 1 (one) tablet by mouth daily ., Disp: , Rfl: omega-3 acid ethyl esters (LOVAZA) 1 gram capsule, Take 1 (one) capsule (1 g total) by mouth every 12 (twelve) hours ., Disp: , Rfl: omega-3 fatty acids/fish oil (fish oil-omega-3 fatty acids) 300-1,000 mg capsule, Take 2 (two) capsules by mouth daily ., Disp: , Rfl: polyethylene glycol (MIRALAX) 17 gram powder, Take 17 (seventeen) g by mouth daily as needed (constipation) ., Disp: , Rfl: potassium 99 mg Tab, Take by mouth once daily ., Disp: , Rfl: SIMVASTATIN ORAL, Take 40 mg by mouth daily ., Disp: , Rfl: tadalafiL 5 MG tablet, Take 1 (one) tablet (5 mg total) by mouth daily as needed for erectile dysfunction ., Disp: , Rfl: pantoprazole (PROTONIX) 20 MG tablet, Take 1 (one) tablet (20 mg total) by mouth daily ., Disp: 30 tablet, Rfl: 0 Past Medical History: Diagnosis Date Arthritis Depression Fractures High cholesterol Hypertension Left leg numbness Left leg weakness Numbness of right hand Past Surgical History: Procedure Laterality Date ARTHROPLASTY HIP ROBOTIC ARLENE Left 03/31/2022 Procedure: Left total hip replacement Robotic; Surgeon: Kristina Carvajal MD; Location: Main OR; Service: Ortho-Robotics BACK SURGERY JOINT REPLACEMENT Bilateral TKR LUMBAR FUSION SKIN GRAFT Left left leg. right leg donor site TONSILLECTOMY TOTAL KNEE ARTHROPLASTY Bilateral Social History Socioeconomic History Marital status: Tobacco Use Smoking status: Never Smokeless tobacco: Never Vaping Use Vaping Use: Never used Substance and Sexual Activity Alcohol use: Yes Alcohol/week: 1.0 standard drink of alcohol Types: 1 Glasses of wine per week Comment: occasional wine Drug use: Never ROS: Review of Systems Musculoskeletal: Positive for arthralgias and myalgias. Neurological: Positive for weakness. PE: Physical Exam ORTHO: Left Shoulder Exam Range of Motion Active abduction: 100 Extension: 50 External rotation: 50 Forward flexion: 100 Muscle Strength Abduction: 4/5 Internal rotation: 4/5 External rotation: 4/5 Supraspinatus: 3/5 Subscapularis: 3/5 Biceps: 5/5 Other Erythema: absent Scars: absent Sensation: normal Pulse: present Comments: +full can +Empty can +Belly off Imaging: No new imaging, reviewed from prior visit. Assessment/Plan: After examination, we discussed continued treatment options. At this point in time conservative treatment measures have failed and he continues to have increased pain as well as decreased range of motion in the left shoulder. His everyday life activities are becoming affected. He has not been able to maintain any type of pain control and does wish to move forward with surgical intervention. I am ordering a MRI for further diagnostic evaluation of the shoulder. We did discuss the difference between a reverse total shoulder as well as a total shoulder replacement. The office will contact him to schedule his surgery in approximately 10 to 14 days. After the MRI I will contact the patient to review those results and notify him of which shoulder replacement surgery we will move forward with. If he has any questions he is to contact the office. He does verbalize understanding and is in agreement the treatment plan. documented in this encounter [facility] 01-29-2023 History of Presen t illness Narrative [facility] OUTPATIENT REHABILITATION DAILY TREATMENT NOTE Today's Date 01/29/2023 Patient Name: Franco Clayton Date of : 1950 Current Visit #: 7 Authorized Visits: 9 Case Name: Left Shoulder Pain History: Pre-Treatment Pain Scale: 2 Symptoms: stabilized Functional Diagnosis: 1. Primary osteoarthritis of left shoulder Clinical Information: Subjective: Pt reports constant ache in shoulder and increased pain with raising arm above shoulder height, as well as out to side. Objective FOTO Score - 01/29/23 0928 OTHER FOTO Score 53 Reviewed HEP with good understanding and mechanics Shoulder Left Shoulder Range of Motion: Flexion: Active: 98 (pain) Extension: Active: 70 Abduction: Active: 81 (pain) IR 0 deg.: ROM Left Active IR 0: lower lumbar. ER 0 deg.: Active: 49 Muscle Strength: Flexion: 4- (pain) Extension: 4+ Abduction: 3+ (pain) IR: 4 ER: 4 Treatments: Physical Therapy Exercise Log - 01/29/23 0915 OTHER Precautions/Contraindications Supervising PT: Mk - Left Shoulder Prehab Notes Visit 7: 9:15 - 9:45 Therapeutic Exercise ([id number]) Parameters Pulleys (flexion, scaption) x 3 min Intervention Standing Wall Slides with ball (flexion, scaption) 3''x20 Parameters Active Pendulums (cw, ccwl) x 10 Intervention corner Pec Stretch 3x20'' Parameters Standing Scap Retractions at wall 3''x20 Intervention Rows, Ext, IR, ER, curl, pushdown L5 x 20 each Parameters Scifit Arm bike L3x 6 min alt fwd/retro Intervention Quadruped wt shifting x1min nt due to TKA Parameters Access Code: [email or web address] URL: [email or web address] Date: 01/14/2023 Prepared by: Gentry Chan Exercises - Seated Shoulder Flexion AAROM with Ervin Behind - 1-2 x daily - 20 reps - Seated Shoulder Scaption AAROM with Ervin at Side - 1-2 x daily - 20 reps - Seated Shoulder Flexion Towel Slide at Table Top - 1-2 x daily - 5 reps - 5 seconds hold - Seated Shoulder Abduction Towel Slide at Table Top - 1-2 x daily - 5 reps - 5 seconds hold - Flexion-Extension Shoulder Pendulum with Table Support - 1-2 x daily - 10 reps - Horizontal Shoulder Pendulum with Table Support - 1-2 x daily - 10 reps - Doorway Pec Stretch at 90 Degrees Abduction - 1-2 x daily - 3 reps - 20 seconds hold - Seated Scapular Retraction - 1-2 x daily - 15 reps - 3 seconds hold PT Treatment Times Therex Total Time 30 Direct Treatment Time 30 Total Treatment Time 30 Goals: Physical Therapy Ortho Goals: CARRYING/MOVING/HANDLING: Patient will be able to place items on a shelf overhead in 4 weeks CARRYING/MOVING/HANDLING: Patient will be able to lift and carry for ADL's/IADL's, housekeeping and yard work without difficulty in 4 weeks IMPAIRMENT: Patient will demonstrate improved postural awareness in PT sessions to facilitate mechanical alignment and function in 3 weeks. IMPAIRMENT: Improve pain from 6/10 to <3/10 during lifting, reaching and carrying in 4 weeks IMPAIRMENT: Improve gross MMT of the Shoulder to at least 3+/5 in 4 weeks IMPAIRMENT: Improve AROM of Shoulder Flexion and Abduction to at least 145 degrees in 4 weeks. IMPAIRMENT: Improve AROM of Shoulder ER to at least 60 degrees in 4 weeks. OTHER: Patient will increase FOTO score from 52 to at least 70 to show MDC/MCII and expected functional outcome in 4 weeks. OTHER: Patient will be able to properly demonstrate independence with HEP in 1 week. Patient Education: Quality of movement with patient demonstrated understanding. Post-Treatment Pain Scale: 2 Assessment: Patient had an expected response to treatment. Skilled Intervention demonstrated by modifications of treatment per exercise log including assessment of patient's response and safety interventions per exercise log. Progress towards goals as expected. Plan for Next Visit: Discharge Yogesh Marvin PTA STATE LICENSE, [id number] documented in this encounter [facility] 01-27-2023 History of Presen t illness Narrative Subjective Patient ID: Franco Clayton is a 72 y.o. 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 he couldn't remember many words of the story He states another time he struggled finding the word copay when discussing with another person Another word he couldn't find was referral - but finally realized to use the word recommend Pt states he does have strong family history on the mom side with many aunts and uncles with alzheimer's He has done MRI was completed Pt states he is thinking he will have shoulder surgery this fall with Dr Chiang Med check HTN - denies home readings being checked recently - advised to check home BP few times /mo and monitor to make sure <140/<90 Hyperchol - on meds Preventative Testing colonoscopy 2016 - repeat in 10 years PSA -July 2021 - not done d/t it wasn't a full 12 mo and cost /insurance issues but he is due at this time - denies symptoms or concerns Fall Depression - PHQ2 NEG DEC 2022 6 CIT score of 0 - Wnl dec 2022 Patient Active Problem List Diagnosis Disc disorder Benign essential hypertension BPH (benign prostatic hyperplasia) Chronic left-sided low back pain without sciatica Decreased libido 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 HENT: Negative for congestion, rhinorrhea, sinus pain, sore throat and tinnitus. Eyes: Negative for discharge, redness and visual disturbance. Respiratory: Negative for cough, chest tightness, shortness of breath and wheezing. Cardiovascular: Negative for chest pain, palpitations and leg swelling. Gastrointestinal: Negative for abdominal pain, constipation, diarrhea, nausea and vomiting. Endocrine: Negative for cold intolerance and heat intolerance. Genitourinary: Negative for flank pain, frequency and urgency. Musculoskeletal: Positive for arthralgias and back pain. Negative for gait problem and neck pain. Skin: Negative for rash and wound. Neurological: Positive for speech difficulty. Negative for dizziness, tremors, syncope, numbness and headaches. Hematological: Does not bruise/bleed easily. Psychiatric/Behavioral: Positive for confusion. Negative for sleep disturbance and suicidal ideas. Past Medical History: Diagnosis Date Encounter for screening for malignant neoplasm of prostate 08/22/2020 Screening PSA (prostate specific antigen) Primary osteoarthritis of left hip 01/14/2022 Added automatically from request for surgery [id number] Past Surgical History: Procedure Laterality Date OTHER SURGICAL HISTORY 06/23/2019 Meniscus repair OTHER SURGICAL HISTORY 06/23/2019 Facial surgery OTHER SURGICAL HISTORY 06/23/2019 Full thickness skin graft OTHER SURGICAL HISTORY 06/23/2019 Laminectomy OTHER SURGICAL HISTORY 08/18/2019 Colonoscopy OTHER SURGICAL HISTORY 08/18/2019 Knee replacement OTHER SURGICAL HISTORY 06/27/2019 Root canal procedure OTHER SURGICAL HISTORY 08/18/2019 Surgery OTHER SURGICAL HISTORY 08/22/2020 Tonsillectomy with adenoidectomy REPLACEMENT TOTAL HIP LATERAL POSITION Left 03/31/2022 [facility] Family History Problem Relation Name Age of Onset Depression Mother Diabetes Mother Hypertension Mother Kidney failure Mother Stroke Father Coronary artery disease Father Diabetes Father Hypertension Father Cancer Father Social History Tobacco Use Smoking status: Never Smokeless tobacco: Never Vaping Use Vaping Use: Never used Substance Use Topics Alcohol use: Yes Comment: SOMETIMES Drug use: Never Allergies Allergen Reactions Lisinopril Cough Terazosin Dizziness Current Outpatient Medications Medication Sig Dispense Refill amLODIPine (Norvasc) 10 mg tablet Take 1 tablet (10 mg) by mouth once daily. 90 tablet 3 ascorbic acid (Vitamin C) 1,000 mg tablet Take 1 tablet (1,000 mg) by mouth once daily. calcium carb/vit D3/minerals (CALCIUM-VITAMIN D ORAL) Take 1 tablet by mouth 1 (one) time each day. cyanocobalamin (Vitamin B-12) 1,000 mcg tablet Take 1 tablet (1,000 mcg) by mouth once daily. fluticasone (Flonase) 50 mcg/actuation nasal spray Administer 1 spray into each nostril once daily as needed for allergies. losartan (Cozaar) 50 mg tablet Take 1 tablet (50 mg) by mouth once daily. 90 tablet 3 multivitamin with minerals (Multiple Vitamin-Minerals) tablet Take 1 tablet by mouth once daily. omega-3 acid ethyl esters (Lovaza) 1 gram capsule Take 1 capsule (1 g) by mouth 2 times a day. potassium gluconate 595 mg (99 mg) tablet Take 1 tablet by mouth 1 (one) time each day. simvastatin (Zocor) 40 mg tablet TAKE 1 TABLET DAILY IN THE EVENING 90 tablet 3 tadalafil (Cialis) 5 mg tablet TAKE DIRECTED. No current facility-administered medications for this visit. Objective BP 146/89 (BP Location: Left arm, Patient Position: Sitting) Pulse 71 Ht 1.803 m (5' 11 ) Wt 106 kg (234 lb) BMI 32.64 kg/m Physical Exam Vitals reviewed. Constitutional: Appearance: Normal appearance. He is obese. HENT: Head: Normocephalic. Right Ear: External ear normal. Left Ear: External ear normal. Nose: Nose normal. No congestion or rhinorrhea. Mouth/Throat: Mouth: Mucous membranes are moist. Eyes: Extraocular Movements: Extraocular movements intact. Conjunctiva/sclera: Conjunctivae normal. Pupils: Pupils are equal, round, and reactive to light. Cardiovascular: Rate and Rhythm: Normal rate and regular rhythm. Pulses: Normal pulses. Pulmonary: Effort: Pulmonary effort is normal. Breath sounds: Normal breath sounds. Abdominal: General: Bowel sounds are normal. Palpations: Abdomen is soft. Tenderness: There is no abdominal tenderness. There is no right CVA tenderness or left CVA tenderness. Musculoskeletal: General: No tenderness. Normal range of motion. Cervical back: Normal range of motion and neck supple. No tenderness. Skin: General: Skin is warm and dry. Neurological: General: No focal deficit present. Mental Status: He is alert and oriented to person, place, and time. Psychiatric: Mood and Affect: Mood normal. Behavior: Behavior normal. Testing MR brain IMPRESSION: 1. Suspected arachnoid cyst in the anterior left middle cranial fossa with focus of encephalomalacia and gliosis in the subjacent anterior left temporal lobe. 2. Mild white-matter changes are nonspecific but most likely represent small-vessel ischemic disease in a patient of this age. There is no evidence of acute ischemic injury. 3. Mild parenchymal volume loss. Impression MDM 1) COMPLEXITY: 1 UNDIAGNOSED NEW PROBLEM WITH UNCERTAIN PROGNOSIS 2)DATA: TESTS INTERPRETED AND OR ORDERED, TOOK INDEPENDENT HISTORY OR RECORDS REVIEWED 3)RISK: MODERATE RISK DUE TO NATURE OF MEDICAL CONDITIONS/COMORBIDITY OR MEDICATIONS ORDERED OR SURGICAL OR PROCEDURE REFERRAL, . Reviewed labs and Testing on file Patient to follow diet low in cholesterol, fat, and sodium. Patient is advised to increase Exercise. Patient is recommended to lose weight. Reviewed Meds and discussed common side effects Continue as directed MRI findings and memory concerns- discussed the findings and explained likely will just monitor but would like referred to neuro for second opinion Memory concerns - scoring has been WNL - discussed the approp diet, ex, social need and brain challenges with memory games and will refer to neuro for second opinion as well I do question if the encephalmalcia is secondary to falling out of a tree at age 18 I do question if he has mild case of trigeminal neuralgia given some of his symptoms he notes on the L side of the face on and off. He denies significant pain so will monitor at this time. He does have hx of facial surgery in the location given the trauma from the tree incident years ago as well Patient is strongly advised to be compliant with recommendations. Return to Clinic sooner if needed. Patient denies further questions/concerns at this time Assessment/Plan Problem List Items Addressed This Visit Benign essential hypertension Mixed hyperlipidemia Trigeminal neuralgia of left side of face Class 1 obesity due to excess calories with serious comorbidity and body mass index (BMI) of 32.0 to 32.9 in adult Subarachnoid cyst - Primary Relevant Orders Referral to Neurology Encephalomalacia on imaging study Relevant Orders Referral to Neurology Memory deficit Relevant Orders Referral to Neurology FU as before Print MRI for brain Neuro referral - isatu guo documented in this encounter [facility] Work Phone: 01-26-2023 History of Presen t illness Narrative [facility] OUTPATIENT REHABILITATION DAILY TREATMENT NOTE Today's Date 01/26/2023 Patient Name: Franco Clayton Date of : 1950 Current Visit #: 5 Authorized Visits: 9 Case Name: Left Shoulder Pain History: Pre-Treatment Pain Scale: about the same Symptoms: unchanged Functional Diagnosis: 1. Primary osteoarthritis of left shoulder Clinical Information: Subjective: Pt denies change in med hx and reports no new complaints. He continues to report just a mild ache if he does not reach beyond shoulder height but he does have increased pain with reaching over head, especially with weight. Objective Treatments: Physical Therapy Exercise Log - 01/26/23 0916 OTHER Precautions/Contraindications Supervising PT: Mk - Left Shoulder Prehab Notes Visit 4: 9:16 - 10:00 Therapeutic Exercise ([id number]) Parameters Pulleys (flexion, scaption) x 3 min Intervention Standing Wall Slides with ball (flexion, scaption) 3''x20 Parameters Active Pendulums (cw, ccwl) x 2 min total Intervention Doorway Pec Stretch 3x20'' Parameters Standing Scap Retractions at wall 3''x20 Intervention Rows, Ext, IR, ER, curl, pushdown L5 x 20 each Parameters Scifit Arm bike L3x 6 min alt fwd/retro Intervention Quadruped wt shifting x1min Parameters Access Code: [email or web address] URL: [email or web address] Date: 01/14/2023 Prepared by: Gentry Chan Exercises - Seated Shoulder Flexion AAROM with Ervin Behind - 1-2 x daily - 20 reps - Seated Shoulder Scaption AAROM with Ervin at Side - 1-2 x daily - 20 reps - Seated Shoulder Flexion Towel Slide at Table Top - 1-2 x daily - 5 reps - 5 seconds hold - Seated Shoulder Abduction Towel Slide at Table Top - 1-2 x daily - 5 reps - 5 seconds hold - Flexion-Extension Shoulder Pendulum with Table Support - 1-2 x daily - 10 reps - Horizontal Shoulder Pendulum with Table Support - 1-2 x daily - 10 reps - Doorway Pec Stretch at 90 Degrees Abduction - 1-2 x daily - 3 reps - 20 seconds hold - Seated Scapular Retraction - 1-2 x daily - 15 reps - 3 seconds hold PT Treatment Times Therex Total Time 44 Direct Treatment Time 44 Total Treatment Time 44 Goals: Physical Therapy Ortho Goals: CARRYING/MOVING/HANDLING: Patient will be able to place items on a shelf overhead in 4 weeks CARRYING/MOVING/HANDLING: Patient will be able to lift and carry for ADL's/IADL's, housekeeping and yard work without difficulty in 4 weeks IMPAIRMENT: Patient will demonstrate improved postural awareness in PT sessions to facilitate mechanical alignment and function in 3 weeks. IMPAIRMENT: Improve pain from 6/10 to <3/10 during lifting, reaching and carrying in 4 weeks IMPAIRMENT: Improve gross MMT of the Shoulder to at least 3+/5 in 4 weeks IMPAIRMENT: Improve AROM of Shoulder Flexion and Abduction to at least 145 degrees in 4 weeks. IMPAIRMENT: Improve AROM of Shoulder ER to at least 60 degrees in 4 weeks. OTHER: Patient will increase FOTO score from 52 to at least 70 to show MDC/MCII and expected functional outcome in 4 weeks. OTHER: Patient will be able to properly demonstrate independence with HEP in 1 week. Patient Education: Quality of movement and Diagnosis and recovery specific education with patient verbalized understanding. Assessment: Patient had an expected response to treatment. Skilled Intervention demonstrated by modifications of treatment per exercise log including assessment of patient's response and safety interventions per exercise log. Progress towards goals unexpected due to unstable medical presentation. Plan for Next Visit: Treatment Visit with focus on strength and postural stability Gentry Chan PT State License, [id number] documented in this encounter [facility] 01-22-2023 History of Presen t illness Narrative [facility] OUTPATIENT REHABILITATION DAILY TREATMENT NOTE Today's Date 01/22/2023 Patient Name: Franco Clayton Date of : 1950 Current Visit #: 4 Authorized Visits: 9 Case Name: Left Shoulder Pain History: Pre-Treatment Pain Scale: 3 Symptoms: stabilized Functional Diagnosis: 1. Primary osteoarthritis of left shoulder Clinical Information: Subjective: Pt reports his LB is very sore from therapy and working around the house the last three days Objective Pt stated more discomfort in his elbow and back vs shoulder today Treatments: Physical Therapy Exercise Log - 01/22/23 1126 OTHER Precautions/Contraindications Supervising PT: Mk - Left Shoulder Prehab Notes Visit 3 [id number] Therapeutic Exercise (07280) Parameters Pulleys (flexion, scaption) x 3 min Intervention Standing Wall Slides with ball (flexion, scaption) 3''x20 Parameters Active Pendulums (cw, ccwl) x 2 min total Intervention Doorway Pec Stretch 3x20'' Parameters Standing Scap Retractions at wall 3''x20 Intervention Rows, Ext, IR, ER, curl, pushdown L5 x 20 each Parameters Scifit Arm bike L3x 6 min Intervention Quadruped wt shifting x1min Parameters Access Code: [email or web address] URL: [email or web address] Date: 01/14/2023 Prepared by: Gentry Chan Exercises - Seated Shoulder Flexion AAROM with Ervin Behind - 1-2 x daily - 20 reps - Seated Shoulder Scaption AAROM with Ervin at Side - 1-2 x daily - 20 reps - Seated Shoulder Flexion Towel Slide at Table Top - 1-2 x daily - 5 reps - 5 seconds hold - Seated Shoulder Abduction Towel Slide at Table Top - 1-2 x daily - 5 reps - 5 seconds hold - Flexion-Extension Shoulder Pendulum with Table Support - 1-2 x daily - 10 reps - Horizontal Shoulder Pendulum with Table Support - 1-2 x daily - 10 reps - Doorway Pec Stretch at 90 Degrees Abduction - 1-2 x daily - 3 reps - 20 seconds hold - Seated Scapular Retraction - 1-2 x daily - 15 reps - 3 seconds hold PT Treatment Times Therex Total Time 35 Direct Treatment Time 35 Total Treatment Time 35 Goals: Physical Therapy Ortho Goals: CARRYING/MOVING/HANDLING: Patient will be able to place items on a shelf overhead in 4 weeks CARRYING/MOVING/HANDLING: Patient will be able to lift and carry for ADL's/IADL's, housekeeping and yard work without difficulty in 4 weeks IMPAIRMENT: Patient will demonstrate improved postural awareness in PT sessions to facilitate mechanical alignment and function in 3 weeks. IMPAIRMENT: Improve pain from 6/10 to <3/10 during lifting, reaching and carrying in 4 weeks IMPAIRMENT: Improve gross MMT of the Shoulder to at least 3+/5 in 4 weeks IMPAIRMENT: Improve AROM of Shoulder Flexion and Abduction to at least 145 degrees in 4 weeks. IMPAIRMENT: Improve AROM of Shoulder ER to at least 60 degrees in 4 weeks. OTHER: Patient will increase FOTO score from 52 to at least 70 to show MDC/MCII and expected functional outcome in 4 weeks. OTHER: Patient will be able to properly demonstrate independence with HEP in 1 week. Patient Education: Verbal HEP with patient verbalized understanding. Post-Treatment Pain Scale: 2 Assessment: Patient had an expected response to treatment. Skilled Intervention demonstrated by modifications of treatment per exercise log including assessment of patient's response and safety interventions per exercise log. Progress towards goals as expected. Plan for Next Visit: Treatment Visit with focus on progressing as tolerated Jose Lozano PTA STATE LICENSE, [id number] documented in this encounter [facility] 01-21-2023 History of Presen t illness Narrative [facility] OUTPATIENT REHABILITATION DAILY TREATMENT NOTE Today's Date 01/21/2023 Patient Name: Franco Clayton Date of : 1950 Current Visit #: 3 Authorized Visits: 9 Case Name: Left Shoulder Pain History: Pre-Treatment Pain Scale: 3 Symptoms: stabilized Functional Diagnosis: 1. Primary osteoarthritis of left shoulder Clinical Information: Subjective: Pt reports low pain today and min soreness after LV Objective Progressed resistance with mult ex's and added wall slides Treatments: Physical Therapy Exercise Log - 01/21/23 1503 OTHER Precautions/Contraindications Supervising PT: Mk - Left Shoulder Prehab Notes Visit 2 [id number] Therapeutic Exercise (32649) Parameters Pulleys (flexion, scaption) x 3 min Intervention Standing Wall Slides with ball (flexion) 3''x20 Parameters Active Pendulums (cw, ccwl) x 2 min total Intervention Doorway Pec Stretch 3x20'' Parameters Standing Scap Retractions at wall 3''x20 Intervention Rows, Ext, IR, ER, curl, pushdown L5 x 20 each Parameters Access Code: [email or web address] URL: [email or web address] Date: 01/14/2023 Prepared by: Gentry Chan Exercises - Seated Shoulder Flexion AAROM with Ervin Behind - 1-2 x daily - 20 reps - Seated Shoulder Scaption AAROM with Ervin at Side - 1-2 x daily - 20 reps - Seated Shoulder Flexion Towel Slide at Table Top - 1-2 x daily - 5 reps - 5 seconds hold - Seated Shoulder Abduction Towel Slide at Table Top - 1-2 x daily - 5 reps - 5 seconds hold - Flexion-Extension Shoulder Pendulum with Table Support - 1-2 x daily - 10 reps - Horizontal Shoulder Pendulum with Table Support - 1-2 x daily - 10 reps - Doorway Pec Stretch at 90 Degrees Abduction - 1-2 x daily - 3 reps - 20 seconds hold - Seated Scapular Retraction - 1-2 x daily - 15 reps - 3 seconds hold PT Treatment Times Therex Total Time 40 Direct Treatment Time 40 Total Treatment Time 40 Goals: Physical Therapy Ortho Goals: CARRYING/MOVING/HANDLING: Patient will be able to place items on a shelf overhead in 4 weeks CARRYING/MOVING/HANDLING: Patient will be able to lift and carry for ADL's/IADL's, housekeeping and yard work without difficulty in 4 weeks IMPAIRMENT: Patient will demonstrate improved postural awareness in PT sessions to facilitate mechanical alignment and function in 3 weeks. IMPAIRMENT: Improve pain from 6/10 to <3/10 during lifting, reaching and carrying in 4 weeks IMPAIRMENT: Improve gross MMT of the Shoulder to at least 3+/5 in 4 weeks IMPAIRMENT: Improve AROM of Shoulder Flexion and Abduction to at least 145 degrees in 4 weeks. IMPAIRMENT: Improve AROM of Shoulder ER to at least 60 degrees in 4 weeks. OTHER: Patient will increase FOTO score from 52 to at least 70 to show MDC/MCII and expected functional outcome in 4 weeks. OTHER: Patient will be able to properly demonstrate independence with HEP in 1 week. Patient Education: Verbal HEP with patient verbalized understanding. Post-Treatment Pain Scale: 3 Assessment: Patient had an expected response to treatment. Skilled Intervention demonstrated by modifications of treatment per exercise log including assessment of patient's response and safety interventions per exercise log. Progress towards goals as expected. Plan for Next Visit: Treatment Visit with focus on progressing as tolerated Jose Lozano PTA STATE LICENSE, [id number] documented in this encounter [facility] 01-20-2023 History of Presen t illness Narrative [facility] OUTPATIENT REHABILITATION DAILY TREATMENT NOTE Today's Date 01/20/2023 Patient Name: Franco Clayton Date of : 1950 Current Visit #: 2 Authorized Visits: 9 Case Name: Left Shoulder Pain History: Pre-Treatment Pain Scale: 2 Symptoms: stabilized Functional Diagnosis: 1. Primary osteoarthritis of left shoulder Clinical Information: Subjective: Pt reports low constant pain and some increased soreness with increased activity Objective Added banded shoulder ex's with some moderate pain reported Treatments: Physical Therapy Exercise Log - 01/20/23 1657 OTHER Precautions/Contraindications Supervising PT: Mk - Left Shoulder Prehab Notes Visit 1 [id number] Therapeutic Exercise (98981) Intervention -- Parameters Pulleys (flexion, scaption) x 3 min Intervention Standing Table Slides (flex, scaption) 3''x20 Parameters Pendulums (cw, ccw, fwd, lateral) x 2 min total Intervention Doorway Pec Stretch 3x20'' Parameters Scap Retractions 3''x20 Intervention Rows, Ext, IR, ER L3 x 20 each Parameters Access Code: [email or web address] URL: [email or web address] Date: 01/14/2023 Prepared by: Gentry Chan Exercises - Seated Shoulder Flexion AAROM with Ervin Behind - 1-2 x daily - 20 reps - Seated Shoulder Scaption AAROM with Ervin at Side - 1-2 x daily - 20 reps - Seated Shoulder Flexion Towel Slide at Table Top - 1-2 x daily - 5 reps - 5 seconds hold - Seated Shoulder Abduction Towel Slide at Table Top - 1-2 x daily - 5 reps - 5 seconds hold - Flexion-Extension Shoulder Pendulum with Table Support - 1-2 x daily - 10 reps - Horizontal Shoulder Pendulum with Table Support - 1-2 x daily - 10 reps - Doorway Pec Stretch at 90 Degrees Abduction - 1-2 x daily - 3 reps - 20 seconds hold - Seated Scapular Retraction - 1-2 x daily - 15 reps - 3 seconds hold PT Treatment Times Therex Total Time 38 Direct Treatment Time 38 Total Treatment Time 38 Goals: Physical Therapy Ortho Goals: CARRYING/MOVING/HANDLING: Patient will be able to place items on a shelf overhead in 4 weeks CARRYING/MOVING/HANDLING: Patient will be able to lift and carry for ADL's/IADL's, housekeeping and yard work without difficulty in 4 weeks IMPAIRMENT: Patient will demonstrate improved postural awareness in PT sessions to facilitate mechanical alignment and function in 3 weeks. IMPAIRMENT: Improve pain from 6/10 to <3/10 during lifting, reaching and carrying in 4 weeks IMPAIRMENT: Improve gross MMT of the Shoulder to at least 3+/5 in 4 weeks IMPAIRMENT: Improve AROM of Shoulder Flexion and Abduction to at least 145 degrees in 4 weeks. IMPAIRMENT: Improve AROM of Shoulder ER to at least 60 degrees in 4 weeks. OTHER: Patient will increase FOTO score from 52 to at least 70 to show MDC/MCII and expected functional outcome in 4 weeks. OTHER: Patient will be able to properly demonstrate independence with HEP in 1 week. Patient Education: Verbal HEP with patient verbalized understanding. Post-Treatment Pain Scale: 2 Assessment: Patient had an expected response to treatment. Skilled Intervention demonstrated by modifications of treatment per exercise log including assessment of patient's response and safety interventions per exercise log. Progress towards goals as expected. Plan for Next Visit: Treatment Visit with focus on progressing as tolerated Jose Lozano PTA STATE LICENSE, [id number] documented in this encounter [facility] 01-07-2023 History of Presen t illness Narrative [facility] [address] [facility] [address] [facility] [id number] Chief Complaint Patient presents with Left Shoulder - Pain Franco Clayton returns to the office today for left shoulder pain. Denies any injury to the shoulder over the course of the past couple of years the left shoulder has become more painful and he has lost range of motion. He has significant pain and difficulty with any type of overhead motions. He has tried conservative measures, all OTC pain medications but they do not help keep his pain under good control. He has now become very limited with certain activities that he wants and needs to do on a daily basis. He does not report any loss of strength however some things he just cannot do because of pain. Denies any numbness or tingling that radiates down the arm to the hand or the fingers. The patient's past medical history, surgical history, social history, family history, medications and allergies were reviewed with the patient today and are available in the chart for further review. Allergies Allergen Reactions Clonidine Other (See Comments) Tired Hydralazine Headache Hydrochlorothiazide Other (See Comments) Hytrin [Terazosin] Other (See Comments) dizziness Lisinopril Cough Current Outpatient Medications: acetaminophen (TYLENOL) 500 MG tablet, Take 2 (two) tablets (1,000 mg total) by mouth once daily ., Disp: , Rfl: amLODIPine (NORVASC) 10 MG tablet, Take 1 (one) tablet (10 mg total) by mouth daily ., Disp: , Rfl: ascorbic acid, vitamin C, (VITAMIN C) 500 MG tablet, Take 2 (two) tablets (1,000 mg total) by mouth daily ., Disp: , Rfl: calcium carb/vit D3/minerals (CALCIUM-VITAMIN D ORAL), Take 1 Unspecified by mouth once daily ., Disp: , Rfl: cholecalciferol, vitamin D3, 1,000 unit tablet, Take 0.5 (one-half) tablet (500 Units total) by mouth daily ., Disp: , Rfl: cyanocobalamin, vitamin B-12, (VITAMIN B12 ORAL), Take by mouth once daily ., Disp: , Rfl: ibuprofen (ADVIL,MOTRIN) 400 MG tablet, Take 1 (one) tablet (400 mg total) by mouth every 6 (six) hours as needed for pain ., Disp: , Rfl: latanoprost (XALATAN) 0.005 % ophthalmic solution, Administer 1 (one) drop to both eyes daily ., Disp: , Rfl: losartan (COZAAR) 50 MG tablet, Take 1 (one) tablet (50 mg total) by mouth daily ., Disp: 30 tablet, Rfl: 11 medium chain triglycerides (MCT OIL ORAL), Take by mouth daily ., Disp: , Rfl: multivitamin (THERAGRAN) per tablet, Take 1 (one) tablet by mouth daily ., Disp: , Rfl: omega-3 fatty acids/fish oil (fish oil-omega-3 fatty acids) 300-1,000 mg capsule, Take 2 (two) capsules by mouth daily ., Disp: , Rfl: polyethylene glycol (MIRALAX) 17 gram powder, Take 17 (seventeen) g by mouth daily as needed (constipation) ., Disp: , Rfl: potassium 99 mg Tab, Take by mouth once daily ., Disp: , Rfl: SIMVASTATIN ORAL, Take 40 mg by mouth daily ., Disp: , Rfl: tadalafiL 5 MG tablet, Take 1 (one) tablet (5 mg total) by mouth daily as needed for erectile dysfunction ., Disp: , Rfl: pantoprazole (PROTONIX) 20 MG tablet, Take 1 (one) tablet (20 mg total) by mouth daily ., Disp: 30 tablet, Rfl: 0 Past Medical History: Diagnosis Date Arthritis Depression Fractures High cholesterol Hypertension Left leg numbness Left leg weakness Numbness of right hand Past Surgical History: Procedure Laterality Date ARTHROPLASTY HIP ROBOTIC ARLENE Left 03/31/2022 Procedure: Left total hip replacement Robotic; Surgeon: Kristina Carvajal MD; Location: Main OR; Service: Ortho-Robotics BACK SURGERY JOINT REPLACEMENT Bilateral TKR LUMBAR FUSION SKIN GRAFT Left left leg. right leg donor site TONSILLECTOMY TOTAL KNEE ARTHROPLASTY Bilateral Social History Socioeconomic History Marital status: Tobacco Use Smoking status: Never Smokeless tobacco: Never Vaping Use Vaping Use: Never used Substance and Sexual Activity Alcohol use: Yes Alcohol/week: 1.0 standard drink of alcohol Types: 1 Glasses of wine per week Comment: occasional wine Drug use: Never ROS: Review of Systems Musculoskeletal: Positive for arthralgias and myalgias. Decreased range of motion in left shoulder ORTHO: Left Shoulder Exam Tenderness The patient is experiencing tenderness in the biceps tendon and acromion. Range of Motion Active abduction: 100 Passive abduction: 100 Extension: 30 External rotation: 50 Forward flexion: 100 Internal rotation 90 degrees: 50 Muscle Strength The patient has normal left shoulder strength. Tests Cross arm: positive Impingement: positive Drop arm: negative Other Erythema: absent Scars: absent Sensation: normal Pulse: present Imaging: L Shoulder: No acute fracture or dislocation. severe glenohumeral joint space narrowing, severe subchondral sclerosis and moderate marginal osteophytosis Assessment/Plan: After examination and review and the patient x-ray images we discussed continued treatment options. We did discuss conservative measures versus surgical intervention. I am starting him in a course of outpatient physical therapy for the left shoulder. I will see him back in the office for follow-up after he has completed physical therapy. If at that point there is no improvement of symptoms we will move forward with a MRI for further diagnostic evaluation and surgical planning. documented in this encounter [facility] 01-07-2023 History of Presen t illness Narrative Subjective Patient ID: Franco Clayton is a 72 y.o. male who presents for Referral (To a neurologist for dementia and alzheimer) HPI Memory concerns x months - maybe 6 months Pt states he has had an episode while talking with his computer network specialist he couldn't remember many words of the story He states another time he struggled finding the word copay when discussing with another person Another word he couldn't find was referral - but finally realized to use the word recommend Pt states he does have strong family history on the mom side with many aunts and uncles with alzheimer's Pt states he is thinking he will have shoulder surgery this fall with Dr Chiang Med check Preventative Testing colonoscopy 2016 - repeat in 10 years PSA -July 2021 - not done d/t it wasn't a full 12 mo and cost /insurance issues but he is due at this time - denies symptoms or concerns Fall Depression - PHQ2 NEG DEC 2022 Patient Active Problem List Diagnosis Disc disorder Benign essential hypertension BPH (benign prostatic hyperplasia) Chronic left-sided low back pain without sciatica Decreased libido 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 HENT: Negative for congestion, rhinorrhea, sinus pain, sore throat and tinnitus. Eyes: Negative for discharge, redness and visual disturbance. Respiratory: Negative for cough, chest tightness, shortness of breath and wheezing. Cardiovascular: Negative for chest pain, palpitations and leg swelling. Gastrointestinal: Negative for abdominal pain, constipation, diarrhea, nausea and vomiting. Endocrine: Negative for cold intolerance and heat intolerance. Genitourinary: Negative for flank pain, frequency and urgency. Musculoskeletal: Positive for arthralgias. Negative for back pain, gait problem and neck pain. Skin: Negative for rash and wound. Neurological: Negative for dizziness, tremors, syncope, numbness and headaches. Hematological: Does not bruise/bleed easily. Psychiatric/Behavioral: Positive for confusion. Negative for sleep disturbance and suicidal ideas. The patient is nervous/anxious. Past Medical History: Diagnosis Date Encounter for screening for malignant neoplasm of prostate 08/22/2020 Screening PSA (prostate specific antigen) Primary osteoarthritis of left hip 01/14/2022 Added automatically from request for surgery [id number] Past Surgical History: Procedure Laterality Date OTHER SURGICAL HISTORY 06/23/2019 Meniscus repair OTHER SURGICAL HISTORY 06/23/2019 Facial surgery OTHER SURGICAL HISTORY 06/23/2019 Full thickness skin graft OTHER SURGICAL HISTORY 06/23/2019 Laminectomy OTHER SURGICAL HISTORY 08/18/2019 Colonoscopy OTHER SURGICAL HISTORY 08/18/2019 Knee replacement OTHER SURGICAL HISTORY 06/27/2019 Root canal procedure OTHER SURGICAL HISTORY 08/18/2019 Surgery OTHER SURGICAL HISTORY 08/22/2020 Tonsillectomy with adenoidectomy REPLACEMENT TOTAL HIP LATERAL POSITION Left 03/31/2022 [facility] Family History Problem Relation Name Age of Onset Depression Mother Diabetes Mother Hypertension Mother Kidney failure Mother Stroke Father Coronary artery disease Father Diabetes Father Hypertension Father Cancer Father Social History Tobacco Use Smoking status: Never Smokeless tobacco: Never Vaping Use Vaping Use: Never used Substance Use Topics Alcohol use: Yes Comment: SOMETIMES Drug use: Never Allergies Allergen Reactions Lisinopril Cough Terazosin Dizziness Current Outpatient Medications Medication Sig Dispense Refill amLODIPine (Norvasc) 10 mg tablet Take 1 tablet (10 mg) by mouth once daily. calcium carb/vit D3/minerals (CALCIUM-VITAMIN D ORAL) Take 1 tablet by mouth 1 (one) time each day. cyanocobalamin (Vitamin B-12) 1,000 mcg tablet Take 1 tablet (1,000 mcg) by mouth once daily. fluticasone (Flonase) 50 mcg/actuation nasal spray Administer 1 spray into each nostril once daily as needed for allergies. losartan (Cozaar) 50 mg tablet Take 1 tablet (50 mg) by mouth once daily. multivitamin with minerals (Multiple Vitamin-Minerals) tablet Take 1 tablet by mouth once daily. potassium gluconate 595 mg (99 mg) tablet Take 1 tablet by mouth 1 (one) time each day. simvastatin (Zocor) 40 mg tablet TAKE 1 TABLET DAILY IN THE EVENING 90 tablet 3 tadalafil (Cialis) 5 mg tablet TAKE DIRECTED. No current facility-administered medications for this visit. Objective BP 136/84 (BP Location: Left arm, Patient Position: Sitting) Pulse 76 Ht 1.803 m (5' 11 ) Wt 107 kg (236 lb) BMI 32.92 kg/m Physical Exam Vitals reviewed. Constitutional: Appearance: Normal appearance. He is obese. HENT: Head: Normocephalic. Right Ear: External ear normal. Left Ear: External ear normal. Nose: Nose normal. No congestion or rhinorrhea. Mouth/Throat: Mouth: Mucous membranes are moist. Eyes: Extraocular Movements: Extraocular movements intact. Conjunctiva/sclera: Conjunctivae normal. Pupils: Pupils are equal, round, and reactive to light. Cardiovascular: Rate and Rhythm: Normal rate and regular rhythm. Pulses: Normal pulses. Pulmonary: Effort: Pulmonary effort is normal. Breath sounds: Normal breath sounds. Abdominal: General: Bowel sounds are normal. Palpations: Abdomen is soft. Tenderness: There is no abdominal tenderness. There is no right CVA tenderness or left CVA tenderness. Musculoskeletal: General: No tenderness. Normal range of motion. Cervical back: Normal range of motion and neck supple. No tenderness. Skin: General: Skin is warm and dry. Neurological: General: No focal deficit present. Mental Status: He is alert and oriented to person, place, and time. Psychiatric: Mood and Affect: Mood normal. Behavior: Behavior normal. Testing 6 CIT score of 0 - WNL Impression MDM 1) COMPLEXITY: 1 UNDIAGNOSED NEW PROBLEM WITH UNCERTAIN PROGNOSIS 2)DATA: TESTS INTERPRETED AND OR ORDERED, TOOK INDEPENDENT HISTORY OR RECORDS REVIEWED 3)RISK: MODERATE RISK DUE TO NATURE OF MEDICAL CONDITIONS/COMORBIDITY OR MEDICATIONS ORDERED OR SURGICAL OR PROCEDURE REFERRAL, . Reviewed labs and Testing on file Patient to follow diet low in cholesterol, fat, and sodium. Patient is advised to increase Exercise. Patient is recommended to lose weight. Reviewed Meds and discussed common side effects Continue as directed HTN - stable and RF meds Memory concerns - possibly early early signs of with fam hx however the scoring is Wnl. Will set up MRI and consider neuro referral Cont with ortho Patient is strongly advised to be compliant with recommendations. Return to Clinic sooner if needed. Patient denies further questions/concerns at this time Assessment/Plan Problem List Items Addressed This Visit Benign essential hypertension Relevant Medications amLODIPine (Norvasc) 10 mg tablet losartan (Cozaar) 50 mg tablet Situational anxiety Class 1 obesity due to excess calories with serious comorbidity and body mass index (BMI) of 32.0 to 32.9 in adult Other Visit Diagnoses Memory deficit - Primary Relevant Orders MR brain w and wo IV contrast Creatinine, Serum Blood tests prior to treatment or procedure Relevant Orders Creatinine, Serum FU in 2-6 weeks with testing MRI karla with /without - memory changes, fam hx of AD documented in this encounter [facility] Work Phone: 08-19-2022 History of Presen t illness Narrative Cardiology Clinic Visit Heart & Vascular [facility] 08/19/2022 Heidi Tejeda MD [address] [place] [address] Medical Office [facility] [id number] Patient: Franco Clayton Date of : 1950 (71 y.o.) Referring Provider: No ref. provider found PCP: Pavan Aguirre PA-C Assessment & Plan Franco Clayton is a 71 y.o. man with history of HTN and HLD who presented to the hospital for pre-operative risk stratification. HTN -controlled -Continue amlodipine 10 mg daily, losartan 25 mg daily. BMP reviewed. We did discuss stopping amlodipine and switching to different medication given his lower extremity swelling however the patient wanted to continue his current medications. Patient was given compression stockings given the dependent nature of his edema HLD - LDL at goal - continue simvastatin. Mild aortic regurgitation - noted on recent echo. Will monitor with periodic imaging LE edema - dependent in nature - compression stockings ordered Return in about 1 year (around 08/20/2023). Heidi Tejeda MD [facility] Non-Invasive Cardiology [facility] Chief Complaint: Follow-up (4 mo/no cardiac concerns today) Subjective Franco Clayton is a 71 y.o. man with history of HTN and HLD who presents to clinic for follow-up. Since last visit the patient underwent hip surgery without any issues. He also underwent an echocardiogram. He reports that he has been feeling well. He denies any episodes of chest pain or shortness of breath. He does report dependent lower extremity swelling which resolves with putting his feet up. He denies PND and orthopnea. He denies palpitations. He denies lightheadedness and dizziness. He denies any episodes of syncope. Review of Systems: Constitution: Negative. HENT: Negative. Cardiovascular: As above. Respiratory: As above. Endocrine: Negative. Skin: Negative. Musculoskeletal: Negative. Gastrointestinal: Negative. Genitourinary: Negative. Neurological: Negative. Psychiatric/Behavioral: Negative. Past Medical History: Diagnosis Date Arthritis Depression Fractures High cholesterol Hypertension Left leg numbness Left leg weakness Numbness of right hand Past Surgical History: Procedure Laterality Date ARTHROPLASTY HIP ROBOTIC ARLENE Left 03/31/2022 Procedure: Left total hip replacement Robotic; Surgeon: Kristina Carvajal MD; Location: Main OR; Service: Ortho-Robotics BACK SURGERY JOINT REPLACEMENT Bilateral TKR LUMBAR FUSION SKIN GRAFT Left left leg. right leg donor site TONSILLECTOMY TOTAL KNEE ARTHROPLASTY Bilateral Family History Problem Relation Age of Onset Heart attack Father Age 68 Social History Tobacco Use Smoking Status Never Smokeless Tobacco Never Allergies: Clonidine, Hydralazine, Hydrochlorothiazide, Hytrin [terazosin], and Lisinopril HOME Medications: Current Outpatient Medications on File Prior to Visit Medication Sig acetaminophen (TYLENOL) 500 MG tablet Take 2 (two) tablets (1,000 mg total) by mouth once daily . amLODIPine (NORVASC) 10 MG tablet Take 1 (one) tablet (10 mg total) by mouth daily . ascorbic acid, vitamin C, (VITAMIN C) 500 MG tablet Take 2 (two) tablets (1,000 mg total) by mouth daily . calcium carb/vit D3/minerals (CALCIUM-VITAMIN D ORAL) Take 1 Unspecified by mouth once daily . cholecalciferol, vitamin D3, 1,000 unit tablet Take 0.5 (one-half) tablet (500 Units total) by mouth daily . cyanocobalamin, vitamin B-12, (VITAMIN B12 ORAL) Take by mouth once daily . ibuprofen (ADVIL,MOTRIN) 400 MG tablet Take 1 (one) tablet (400 mg total) by mouth every 6 (six) hours as needed for pain . latanoprost (XALATAN) 0.005 % ophthalmic solution Administer 1 (one) drop to both eyes daily . losartan (COZAAR) 50 MG tablet Take 1 (one) tablet (50 mg total) by mouth daily . medium chain triglycerides (MCT OIL ORAL) Take by mouth daily . multivitamin (THERAGRAN) per tablet Take 1 (one) tablet by mouth daily . omega-3 fatty acids/fish oil (fish oil-omega-3 fatty acids) 300-1,000 mg capsule Take 2 (two) capsules by mouth daily . pantoprazole (PROTONIX) 20 MG tablet Take 1 (one) tablet (20 mg total) by mouth daily . polyethylene glycol (MIRALAX) 17 gram powder Take 17 (seventeen) g by mouth daily as needed (constipation) . potassium 99 mg Tab Take by mouth once daily . SIMVASTATIN ORAL Take 40 mg by mouth daily . tadalafiL 5 MG tablet Take 1 (one) tablet (5 mg total) by mouth daily as needed for erectile dysfunction . No current facility-administered medications on file prior to visit. Physical Examination: BP 134/82 (BP Location: Right arm) Comment: manual Pulse 80 Ht 5' 11 Wt 107.5 kg (237 lb) SpO2 94% BMI 33.05 kg/m Constitutional: Appears well-developed and well-nourished. No distress. HENT: Head: Normocephalic and atraumatic. Eyes: Conjunctivae and EOM are normal. No scleral icterus. Neck: Normal range of motion. Cardiovascular: Normal rate and regular rhythm. Exam reveals no gallop and no friction rub. No murmur heard. No JVP elevation. 1+ LE edema. Pulmonary/Chest: Effort normal and breath sounds normal. No respiratory distress. No wheezes. No rales. Abdominal: Soft. Bowel sounds are normal. There is no abdominal tenderness. Musculoskeletal: Normal range of motion. Neurological: AOx3, moving all ext. Skin: Skin is warm and dry. No rash noted. Psychiatric: Normal mood and affect. Cardiovascular Studies: 03/03/22 ECG Sinus Rhythm LAFB LVH with resulting LV strain pattern 03/14/22 TTE Summary 1. Left ventricular systolic function is normal with an ejection fraction by Biplane Method of Discs of 60 %. 2. Right ventricular size and systolic function are normal. 3. There is grade 1 diastolic dysfunction, consistent with impaired relaxation and low or normal left atrial pressures. 4. There is mild aortic valve regurgitation. Labs: 08/24/21 labs WBC 6.1, Hgb 14.8, platelet 252 Total cholesterol 144 Hdl 44 Ldl 83 Sodium 141, potassium 4.3, bicarb 31, creatinine 0.92, albumin 4.2 documented in this encounter [facility] 08-19-2022 Instructions Greyson Long RN - 08/19/2022 9:56 AM EDT How to contact your Care Team: Provider: Heidi Tejeda MD Nurse: Greyson Long RN In case of an emergency please call 911. REFILLS: When in need for refills please call your care team or the office at [phone]. Please include medication name, pharmacy name, and specify 30-day or 90-day supply. Please check with your pharmacy within 24 hours of request for your refill. You must follow up as directed to continue current refills. 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 [facility] 04-16-2022 Miscellaneous Notes Pt is discharged from PT and HH agency with goals met. documented in this encounter [facility] documented in this encounter [id number] History of Present illness Narrative* Larissa Poncho Womack, KILN CLEANER - 04/07/2022 12:23 PM EST I spoke w Franco today and he says he is doing pretty good, very happy w results. His swelling has improved some w elevation and ice. He denies any constipation and has used the Miralax, a stool softener and Epsom salts, no nausea, appetite is good. He did have trouble w increased urination, he did stop his narcotic and shortly after his urination is now back to normal. He denies any nausea, appetite is good, He is taking 325mg ASA bid, 500mg Keflex, 20mg Protonix. He did use 10mg Flexeril prn but has stopped due to increased dry mouth. His dressing has a few spots of drainage and is intact. documented in this [id number] History of Present illness Narrative* Patient presents today for.... * 1 to review labs * 2 HTN * home readings 140-150/80s however losartan was just inc a few days ago with cardio and since BP is <140/80s * He is on losartan 50 mg with cardio but would like us to manage and amlodipine 10 mg * HCTZ - ED * lisinopril - cough * hytrin - dizziness * hydralazine- can take bid but not tid d/t DORANTES so he had stopped but advised to re-start and take themax dose he can tolerate * clonidine - too drowsy / dryness * he denies symptoms of high BP * he is working on diet and ex and is losing weight * previously we have discussed sleep study or referral to cardio if he doesn't want to try new meds but he cont to resist these options as well. I have explained the risk of further damage to the cardiac system if BP left uncontrolled * He did have ehco done recently with cardio and plans to repeat too * anxiety -possibly contributing to BP and was started on buspar but no change and denies concerns ofthis or wanting to try new med for this at this time * 3 Preventative testing * colonoscopy 2016 - repeat in 10 years * PSA -July 2021 * COVID - second booster was done recently * flu - interested in high dose flu shot today in office - given * fall - pt states he tripped over a root and doesn't believe he hit the ground but just lost his balance (jun 2021?) [facility] Work Phone: [phone]) 364-984610-24-2022 History of Present illness Narrative* Patient presents today for.... * 1 HTN * home readings 140-170/80-100 * home readings up since his daughter and 4 grandkids moved in. He states there is a lot of stress ashis daughter is going through a messy divorce however things with the court have recently started to go their way and readings have improved - his daughters fam has since moved out * HCTZ - ED * lisinopril - cough * hytrin - dizziness * hydralazine- can take bid but not tid d/t DORANTES so he had stopped but advised to re-start and take themax dose he can tolerate * clonidine - too drowsy / dryness * he denies symptoms of high BP * he is working on diet and ex and is losing weight * previously we have discussed sleep study or referral to cardio if he doesn't want to try new meds but he cont to resist these options as well. I have explained the risk of further damage to the cardiac system if BP left uncontrolled * anxiety -possibly contributing to BP and was started on buspar but no change and denies concerns ofthis or wanting to try new med for this at this time * previously we have discussed trial of other meds or referral to cardio or sleep study but he has been resistant in the past. however he is set for hip surgery end of mar and knows he needs to have his BP better managed. he is set to see cardio for pre op first week of mar so is agreeable to try [facility] prior to the visit with them. I do not believe he has been on losartan or norvasc or BB. I do not believe he would be a good candidate for BB * 2 Preventative testing * colonoscopy 2017 - repeat in 10 years * PSA -July 2021 * COVID - second booster was done recently * flu - interested in high dose flu shot today in office - given * fall - pt states he tripped over a root and doesn't believe he hit the ground but just lost his balance (jun 2021?) [facility] Work Phone: 1(374) 431-377510-03-2022 History of Present illness Narrative* Heidi Tejeda MD - 03/03/2022 1:09 PM EDT Cardiology Clinic Visit Heart & Vascular [facility] 03/03/2022 Heidi Tejeda MD [address] [place] [id number] Patient: Franco Clayton Date of : 1950 (71 y.o.) Referring Provider: Kristina Carvajal,* PCP: Pavan Aguirre, PORFIRIO Assessment & Plan Franco Clayton is a 71 y.o. man with history of HTN and HLD who presented to the hospital for pre-operative risk stratification. Pre-op risk stratification for hip replacement - according to the hassan risk calculator the patientis at low risk for major carmela-operative CV events, <1%. Additionally he is able to achieve > 4 METS. He does have LVH on his ECG and an echo has been ordered however this does not need to be completed prior to surgery. At the current time no further cardiac testing is indicated prior to surgery. Continue simvastatin in the carmela-operative period. HTN - uncontrolled -continue amlodipine 10mg daily -Patient had a cough to lisinopril (no angioedema). Start losartan 25mg daily. Will obtain lab workfrom PCP. Blood chem in 1-2 weeks. Nurse visit in 2 weeks. Abnormal ECG/LVH - TTE ordered HLD - LD at goal - continue simvastatin. Return in about 4 months (around 07/04/2022). Heidi Tejeda MD [facility] Non-Invasive Cardiology [facility] Chief Complaint: Pre-op Exam (Per Dr. Carvajal for left total hip replacement/scheduled for 03/31/22) Subjective Franco Clayton is a 71 y.o. man with history of HTN and HLD who presented to the hospital for pre-operative risk stratification. He reports that he was active until about 8 months ago when his left hip started giving him more issues. He is still able to do house work without chest pain and shortness of breath. Able to walk up 2 flight of stairs without chest pain and shortness of breath. Denies chest pain and shortness of breath at other times. Denies LE swelling, PND and orthopnea. Denies palpitations, LH and dizziness. Denies syncope. Denies prior cardiac history including AL, PCI, HF and valve issues. Review of Systems: Constitution: Negative. HENT: Negative. Cardiovascular: As above. Respiratory: As above. Endocrine: Negative. Skin: Negative. Musculoskeletal: Negative. Gastrointestinal: Negative. Genitourinary: Negative. Neurological: Negative. Psychiatric/Behavioral: Negative. Past Medical History: Diagnosis Date Depression Fractures High cholesterol Hypertension Left leg numbness Left leg weakness Numbness of right hand Past Surgical History: Procedure Laterality Date BACK SURGERY JOINT REPLACEMENT Bilateral TKR LUMBAR FUSION TOTAL KNEE ARTHROPLASTY Bilateral Family History Problem Relation Age of Onset Heart attack Father Age 68 Social History Tobacco Use Smoking Status Never Smokeless Tobacco Never Allergies: Clonidine, Hydralazine, Hydrochlorothiazide, Hytrin [terazosin], and Lisinopril HOME Medications: Current Outpatient Medications on File Prior to Visit Medication Sig amLODIPine (NORVASC) 10 MG tablet Take 1 (one) tablet (10 mg total) by mouth daily . ascorbic acid, vitamin C, (VITAMIN C) 500 MG tablet Take 500 mg by mouth daily . calcium carb/vit D3/minerals (CALCIUM-VITAMIN D ORAL) Take 1 Unspecified by mouth . cyanocobalamin, vitamin B-12, (VITAMIN B12 ORAL) Take by mouth . latanoprost (XALATAN) 0.005 % ophthalmic solution medium chain triglycerides (MCT OIL ORAL) Take by mouth . multivitamin (THERAGRAN) per tablet Take 1 tablet by mouth daily . omega-3 fatty acids/fish oil (fish oil-omega-3 fatty acids) 300-1,000 mg capsule Take 2 g by mouth daily . potassium 99 mg Tab Take by mouth . SIMVASTATIN ORAL Take 40 mg by mouth daily . tadalafiL 5 MG tablet Take 1 (one) tablet (5 mg total) by mouth daily as needed for erectile dysfunction . [DISCONTINUED] CLONIDINE HCL ORAL Take by mouth . [DISCONTINUED] magnesium 30 mg tablet Take 400 mg by mouth once daily . No current facility-administered medications on file prior to visit. Physical Examination: BP (!) 160/83 (BP Location: Right arm) Pulse 82 Ht 5' 11 Wt 99.3 kg (219 lb) SpO2 94% BMI 30.54 kg/m Constitutional: Appears well-developed and well-nourished. No distress. HENT: Head: Normocephalic and atraumatic. Eyes: Conjunctivae and EOM are normal. No scleral icterus. Neck: Normal range of motion. Cardiovascular: Normal rate and regular rhythm. Exam reveals no gallop and no friction rub. No murmur heard. No JVP elevation. No LE edema. Pulmonary/Chest: Effort normal and breath sounds normal. No respiratory distress. No wheezes. No rales. Abdominal: Soft. Bowel sounds are normal. There is no abdominal tenderness. Musculoskeletal: Normal range of motion. Neurological: AOx3, moving all ext. Skin: Skin is warm and dry. No rash noted. Psychiatric: Normal mood and affect. Cardiovascular Studies: 03/03/22 ECG Sinus Rhythm LAFB LVH with resulting LV strain pattern Labs: 08/24/21 labs WBC 6.1, Hgb 14.8, platelet 252 Total cholesterol 144 Hdl 44 Ldl 83 Sodium 141, potassium 4.3, bicarb 31, creatinine 0.92, albumin 4.2 documented in this [id number] Instructions* Patient Instructions* Greyson Long RN - 03/03/2022 12:57 PM EDT How to contact your Care Team: Provider: Heidi Tejeda MD Nurse: Greyson Long RN In case of an emergency please call 911. REFILLS: When in need for refills please call your care team or the office at [phone]. Please include medication name, pharmacy name, and specify 30-day or 90-day supply. Please check with your pharmacy within 24 hours of request for your refill. You must follow up as directed to continue current refills. Thank you documented in this [id number] History of Present illness Narrative* Maria R Guzmán, TELEPHONE INTERVIEWER - 02/14/2022 8:30 AM EDT [facility] OUTPATIENT REHABILITATION DAILY TREATMENT NOTE Today's Date 02/14/2022 Patient Name: Franco Clayton Date of : 1950 Current Visit #: 9 Authorized Visits: [id number] Case Name: Left Hip Pain History: Pre-Treatment Pain Scale: 1 Symptoms: stabilized Functional Diagnosis: 1. Primary osteoarthritis of left hip Clinical Information: Subjective: He needs to take 2 Tylenol in the a.m. and 2 ibuprophen at night to get through the day. 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 AROM hip flexion 60 degrees, abd 25 degrees MMT flexion 4-/5 abd 4/5 Pain and difficulty increase with ascending stairs. No difficulty descending stairs. Surgery date 03-31-22 for L hip replacement. He is compliant with HEP Treatments: Physical Therapy Exercise Log - 02/14/22 0912 OTHER Precautions/Contraindications Supervising PT: Mk - Left THR Prehab Notes visit 8: 8:32-9:10 Therapeutic Exercise (61440) Intervention sci fit lv 3 x 6 min Parameters Supine Hip flexor stretch x 1min B Intervention HS stretch 3x20'' Parameters supine bent knee fall outs 10x10'' Intervention bridging 3''x20 Parameters Clamshells - x15, Reverse (d/c - pain )clamshells - x10 Intervention supine hip abd/add GTB x20 Parameters Steamboats - x10 L3 nt Intervention BOSU lunge x15 Parameters shuttle 56# BLE x20 31# x20 Intervention Lateral amb 30 ' down/ back x 1 NT Parameters HS curls and Heel raises x 15 Intervention sit to stand x 10 plinth 22in PT Treatment Times Therex Total Time 33 Direct Treatment Time 33 Total Treatment Time 33 Goals: Physical Therapy Ortho Goals: MOBILITY: Patient will be able to ambulate for 1 hour in community without difficulty in 4 weeks. MOBILITY: Patient will be able to ascend/descend stairs without difficulty in 4 weeks. IMPAIRMENT: Improve pain from 7/10 to 3/10 or less during prolonged walking in 4 weeks IMPAIRMENT: Improve MMT of the Left Hip to 4+/5 in all planes of movement in 4 weeks IMPAIRMENT: Improve AROM of Left Hip Flexion from 80 degrees to at least 95 degrees in 4 weeks. OTHER: Patient will increase FOTO score from 47 to at least 60 to show MDC/MCII and expected functional outcome in 4 weeks. OTHER: Patient will be able to properly demonstrate independence with HEP in 1 week. Patient Education: Quality of movement with patient demonstrated understanding. Post-Treatment Pain Scale: 1 Assessment: Patient had an expected response to treatment. Skilled Intervention demonstrated by modifications of treatment per exercise log including increased load and safety interventions per exercise log. Progress towards goals as expected. Plan for Next Visit: Discharge with [facility] and surgery Maria R Guzmán PTA STATE LICENSE, [id number] documented in this [id number] History of Present illness Narrative* Maira R Guzmán PTA - 02/11/2022 8:30 AM EDT [facility] OUTPATIENT REHABILITATION DAILY TREATMENT NOTE Today's Date 02/11/2022 Patient Name: Franco Clayton Date of : 1950 Current Visit #: 8 Authorized Visits: [id number] Case Name: Left Hip Pain History: Pre-Treatment Pain Scale: 2 Symptoms: stabilized Functional Diagnosis: 1. Primary osteoarthritis of left hip Clinical Information: Subjective: He forgot to take his tylenol this morning and his pain is more than usual Objective held on steamboats d/t increased pain with exercises. Treatments: Physical Therapy Exercise Log - 02/11/22 1043 OTHER Precautions/Contraindications Supervising PT: Mk - Left THR Prehab Notes visit 5: 8:28-9:08 Therapeutic Exercise (86710) Intervention sci fit lv 3 x 6 min Parameters Supine Hip flexor stretch x 1min B Intervention HS stretch 3x20'' Parameters supine bent knee fall outs 10x10'' Intervention bridging 3''x20 Parameters Clamshells - x15, Reverse (d/c - pain )clamshells - x10 Intervention supine hip abd/add GTB x20 Parameters Steamboats - x10 L3 nt Intervention BOSU lunge x15 Parameters shuttle 56# BLE x20 31# x20 Intervention Lateral amb 30 ' down/ back x 1 NT Parameters HS curls and Heel raises x 15 Intervention sit to stand x 10 plinth 22in PT Treatment Times Therex Total Time 35 Direct Treatment Time 35 Total Treatment Time 35 Goals: Physical Therapy Ortho Goals: MOBILITY: Patient will be able to ambulate for 1 hour in community without difficulty in 4 weeks. MOBILITY: Patient will be able to ascend/descend stairs without difficulty in 4 weeks. IMPAIRMENT: Improve pain from 7/10 to 3/10 or less during prolonged walking in 4 weeks IMPAIRMENT: Improve MMT of the Left Hip to 4+/5 in all planes of movement in 4 weeks IMPAIRMENT: Improve AROM of Left Hip Flexion from 80 degrees to at least 95 degrees in 4 weeks. OTHER: Patient will increase FOTO score from 47 to at least 60 to show MDC/MCII and expected functional outcome in 4 weeks. OTHER: Patient will be able to properly demonstrate independence with HEP in 1 week. Patient Education: Quality of movement with patient demonstrated understanding. Post-Treatment Pain Scale: 3 Assessment: Patient had an expected response to treatment. Skilled Intervention demonstrated by modifications of treatment per exercise log including increased load and safety interventions per exercise log. Progress towards goals as expected. Plan for Next Visit: Treatment Visit with focus on stretches and pain control Maria R Guzmán PTA STATE LICENSE, [id number] documented in this [id number] History of Present illness Narrative* Maria R Guzmán PTA - 02/07/2022 8:30 AM EDT [facility] OUTPATIENT REHABILITATION DAILY TREATMENT NOTE Today's Date 02/07/2022 Patient Name: Franco Clayton Date of : 1950 Current Visit #: 7 Authorized Visits: [id number] Case Name: Left Hip Pain History: Pre-Treatment Pain Scale: 2 Symptoms: stabilized Functional Diagnosis: 1. Primary osteoarthritis of left hip Clinical Information: Subjective: He still has discomfort with certain movements and positions. Stairs are difficult to perform. Objective quick fatigue with HS curls. Treatments: Physical Therapy Exercise Log - 02/07/22 0909 OTHER Precautions/Contraindications Supervising PT: Mk - Left THR Prehab Notes visit 4: 8:28-9:08 Therapeutic Exercise (17141) Intervention sci fit lv 3 x 6 min Parameters Supine Hip flexor stretch x 1min B Intervention HS stretch 3x20'' Parameters supine bent knee fall outs 10x10'' Intervention bridging 3''x20 Parameters Clamshells - x15, Reverse (d/c - pain )clamshells - x10 Intervention supine hip abd/add GTB x20 Parameters Steamboats - x10 L3 nt Intervention BOSU lunge x15 Parameters shuttle 56# BLE x20 31# x20 Intervention Lateral amb 30 ' down/ back x 1 Parameters HS curls and Heel raises x 15 Intervention sit to stand x 10 plinth 22in PT Treatment Times Therex Total Time 40 Direct Treatment Time 40 Total Treatment Time 40 Goals: Physical Therapy Ortho Goals: MOBILITY: Patient will be able to ambulate for 1 hour in community without difficulty in 4 weeks. MOBILITY: Patient will be able to ascend/descend stairs without difficulty in 4 weeks. IMPAIRMENT: Improve pain from 7/10 to 3/10 or less during prolonged walking in 4 weeks IMPAIRMENT: Improve MMT of the Left Hip to 4+/5 in all planes of movement in 4 weeks IMPAIRMENT: Improve AROM of Left Hip Flexion from 80 degrees to at least 95 degrees in 4 weeks. OTHER: Patient will increase FOTO score from 47 to at least 60 to show MDC/MCII and expected functional outcome in 4 weeks. OTHER: Patient will be able to properly demonstrate independence with HEP in 1 week. Patient Education: Quality of movement with patient demonstrated understanding. Post-Treatment Pain Scale: 2 Assessment: Patient had an expected response to treatment. Skilled Intervention demonstrated by modifications of treatment per exercise log including increased load and safety interventions per exercise log. Progress towards goals as expected. Plan for Next Visit: Treatment Visit with focus on strengthening and pain control Maria R Guzmán PTA STATE LICENSE, [id number] documented in this [id number] History of Present illness Narrative* Patient presents today for.... * 1 HTN * home readings 140-170/80-100 * home readings up since his daughter and 4 grandkids moved in. He states there is a lot of stress ashis daughter is going through a messy divorce however things with the court have recently started to go their way and readings have improved - his daughters fam has since moved out * HCTZ - ED * lisinopril - cough * hytrin - dizziness * hydralazine- can take bid but not tid d/t DORANTES so he had stopped but advised to re-start and take themax dose he can tolerate * clonidine - too drowsy / dryness * he denies symptoms of high BP * he is working on diet and ex and is losing weight * previously we have discussed sleep study or referral to cardio if he doesn't want to try new meds but he cont to resist these options as well. I have explained the risk of further damage to the cardiac system if BP left uncontrolled * anxiety -possibly contributing to BP and was started on buspar but no change and denies concerns ofthis or wanting to try new med for this at this time * previously we have discussed trial of other meds or referral to cardio or sleep study but he has been resistant in the past. however he is set for hip surgery end of mar and knows he needs to have his BP better managed. he is set to see cardio for pre op first week of mar so is agreeable to try [facility] prior to the visit with them. I do not believe he has been on losartan or norvasc or BB. I do not believe he would be a good candidate for BB * 2 Preventative testing * colonoscopy 2016 - repeat in 10 years * PSA -July 2021 * COVID - second booster was done recently * flu - interested in high dose flu shot today in office - given * fall - pt states he tripped over a root and doesn't believe he hit the ground but just lost his balance (jun 2021?) [facility] Work Phone: [phone] 360-693309-06-2022 History of Present illness Narrative* Laure Homero, TELEPHONE INTERVIEWER - 02/04/2022 8:30 AM EDT [facility] OUTPATIENT REHABILITATION DAILY TREATMENT NOTE Today's Date 02/04/2022 Patient Name: Franco Clayton Date of : 1950 Current Visit #: 6 Authorized Visits: 199 Case Name: Left Hip Pain History: Pre-Treatment Pain Scale: 2 Symptoms: stabilized Functional Diagnosis: 1. Primary osteoarthritis of left hip Clinical Information: Subjective: Pt states he is doing good, states there are no big changes but his pain has not increased so he I happy. Objective Pt completed ex log, added heel raises for continued LE strengthening, LE MMT IR 3+, limited ability to completed reverse clamshells w/o pain so d/c'ed for the day Treatments: Physical Therapy Exercise Log - 02/04/22 0830 OTHER Precautions/Contraindications Supervising PT: Mk - Left THR Prehab Notes visit 3: 7:47 - 8:32 Therapeutic Exercise (84413) Intervention sci fit lv 3 x 5 min Parameters Supine Hip flexor stretch x 1min B Intervention HS stretch 3x20'' Parameters supine bent knee fall outs 10x10'' Intervention bridging 3''x20 Parameters Clamshells - x15, Reverse (d/c - pain )clamshells - x10 Intervention supine hip abd/add GTB x20 Parameters Steamboats - x10 L3 Intervention BOSU lunge x15 Parameters shuttle 56# BLE x20 31# x20 Intervention Lateral amb 30 ' down/ back x 1 Parameters HS curls and Heel raises x 15 Intervention sit to stand x 10 plinth 22in PT Treatment Times Therex Total Time 41 Direct Treatment Time 41 Total Treatment Time 43 Goals: Physical Therapy Ortho Goals: MOBILITY: Patient will be able to ambulate for 1 hour in community without difficulty in 4 weeks. MOBILITY: Patient will be able to ascend/descend stairs without difficulty in 4 weeks. IMPAIRMENT: Improve pain from 7/10 to 3/10 or less during prolonged walking in 4 weeks IMPAIRMENT: Improve MMT of the Left Hip to 4+/5 in all planes of movement in 4 weeks IMPAIRMENT: Improve AROM of Left Hip Flexion from 80 degrees to at least 95 degrees in 4 weeks. OTHER: Patient will increase FOTO score from 47 to at least 60 to show MDC/MCII and expected functional outcome in 4 weeks. OTHER: Patient will be able to properly demonstrate independence with HEP in 1 week. Patient Education: Verbal HEP with patient verbalized understanding. Post-Treatment Pain Scale: 2 Assessment: Patient had an expected response to treatment. Skilled Intervention demonstrated by modifications of treatment per exercise log including increased intensity and safety interventions per exercise log. Progress towards goals as expected. Plan for Next Visit: Treatment Visit with focus on L LE strengthening and mobility for improved function Laure Valentin PTA STATE LICENSE, [id number] documented in this [id number] History of Present illness Narrative* Maria R Guzmán PTA - 01/28/2022 8:30 AM EDT [facility] OUTPATIENT REHABILITATION DAILY TREATMENT NOTE Today's Date 01/28/2022 Patient Name: Franco Clayton Date of : 1950 Current Visit #: 4 Authorized Visits: 199 Case Name: Left Hip Pain History: Pre-Treatment Pain Scale: 2 Symptoms: gradually worsened Functional Diagnosis: 1. Primary osteoarthritis of left hip Clinical Information: Subjective: his pain is slowly getting worse as time goes on. Surgery is scheduled for the end of March. Objective pain increase with monster steps. Mild antalgic gait on L during stance phase. Treatments: Physical Therapy Exercise Log - 01/28/22 0930 OTHER Precautions/Contraindications Supervising PT: Mk - Left THR Prehab Notes visit 3 [phone] Therapeutic Exercise (95608) Intervention sci fit lv 3 x 6 min Parameters Supine Hip flexor stretch x 1min B Intervention seated HS stretch 3x20'' Parameters supine bent knee fall outs 10x10'' Intervention PPTs x10 Parameters abd marching 3''x20 Intervention bridging 3''x20 Parameters quad sets/heel slides x20 Intervention supine hip abd/add GTB x20 Parameters shuttle 56# BLE x20 31# x20 Intervention Lateral amb 30 ' down/ back x 1 Parameters BOSU lunge x10 PT Treatment Times Therex Total Time 40 Direct Treatment Time 40 Total Treatment Time 40 Goals: Physical Therapy Ortho Goals: MOBILITY: Patient will be able to ambulate for 1 hour in community without difficulty in 4 weeks. MOBILITY: Patient will be able to ascend/descend stairs without difficulty in 4 weeks. IMPAIRMENT: Improve pain from 7/10 to 3/10 or less during prolonged walking in 4 weeks IMPAIRMENT: Improve MMT of the Left Hip to 4+/5 in all planes of movement in 4 weeks IMPAIRMENT: Improve AROM of Left Hip Flexion from 80 degrees to at least 95 degrees in 4 weeks. OTHER: Patient will increase FOTO score from 47 to at least 60 to show MDC/MCII and expected functional outcome in 4 weeks. OTHER: Patient will be able to properly demonstrate independence with HEP in 1 week. Patient Education: Quality of movement with patient demonstrated understanding. Post-Treatment Pain Scale: 2 Assessment: Patient had an expected response to treatment. Skilled Intervention demonstrated by modifications of treatment per exercise log including increased load and safety interventions per exercise log. Progress towards goals as expected. Plan for Next Visit: Treatment Visit with focus on strengthening and pain control aMria R Guzmán PTA STATE LICENSE, [id number] documented in this [id number] History of Present illness Narrative* Jose Lozano PTA - 01/24/2022 7:45 AM EDT [facility] OUTPATIENT REHABILITATION DAILY TREATMENT NOTE Today's Date 01/24/2022 Patient Name: Franco Clayton Date of : 1950 Current Visit #: 3 Authorized Visits: 199 Case Name: Left Hip Pain History: Pre-Treatment Pain Scale: 3 Symptoms: stabilized Functional Diagnosis: 1. Primary osteoarthritis of left hip Clinical Information: Subjective: Pt reports increased pain level coming in today Objective Transitioned standing lunge to supine table stretch for more hip flexor emphasis Treatments: Physical Therapy Exercise Log - 01/24/22 0745 OTHER Precautions/Contraindications Supervising PT: Mk - Left THR Prehab Notes visit 2 [phone] Therapeutic Exercise ([id number]) Intervention sci fit lv 3 x 6 min Parameters Supine Hip flexor stretch x 1min B Intervention seated HS stretch 3x20'' Parameters supine bent knee fall outs 10x10'' Intervention PPTs x10 Parameters abd marching 3''x20 Intervention bridging 3''x20 Parameters quad sets/heel slides x20 Intervention supine hip abd/add GTB x20 Parameters shuttle 56# BLE x20 25# x20 Intervention Lateral amb 30 ' down/ back x 1 Parameters BOSU lunge x10 Intervention -- PT Treatment Times Therex Total Time 45 Direct Treatment Time 45 Total Treatment Time 45 Goals: Physical Therapy Ortho Goals: MOBILITY: Patient will be able to ambulate for 1 hour in community without difficulty in 4 weeks. MOBILITY: Patient will be able to ascend/descend stairs without difficulty in 4 weeks. IMPAIRMENT: Improve pain from 7/10 to 3/10 or less during prolonged walking in 4 weeks IMPAIRMENT: Improve MMT of the Left Hip to 4+/5 in all planes of movement in 4 weeks IMPAIRMENT: Improve AROM of Left Hip Flexion from 80 degrees to at least 95 degrees in 4 weeks. OTHER: Patient will increase FOTO score from 47 to at least 60 to show MDC/MCII and expected functional outcome in 4 weeks. OTHER: Patient will be able to properly demonstrate independence with HEP in 1 week. Patient Education: Verbal HEP with patient verbalized understanding. Post-Treatment Pain Scale: 3 Assessment: Patient had an expected response to treatment. Skilled Intervention demonstrated by modifications of treatment per exercise log including assessment of patient's response and safety interventions per exercise log. Progress towards goals as expected. Plan for Next Visit: Treatment Visit with focus on progressing as tolerated Jose Lozano PTA STATE LICENSE, [id number] documented in this [id number] History of Present illness Narrative* Maria R Guzmán PTA - 01/21/2022 8:30 AM EDT [facility] OUTPATIENT REHABILITATION DAILY TREATMENT NOTE Today's Date 01/21/2022 Patient Name: Franco Clayton Date of : 1950 Current Visit #: 2 Authorized Visits: 199 Case Name: Left Hip Pain History: Pre-Treatment Pain Scale: 1 Symptoms: stabilized Functional Diagnosis: 1. Primary osteoarthritis of left hip Clinical Information: Subjective: His hip is doing ok this morning but plans [place] going [place] the zoo today. Objective tolerates exercises with min pain increase except monster steps caused discomfor. Treatments: Physical Therapy Exercise Log - 01/21/22 0910 OTHER Precautions/Contraindications Supervising PT: Mk - Left THR Prehab Notes visit 1: 8:30-9:02 Therapeutic Exercise ([id number]) Intervention provided written HEP handouts consisting of the following: Parameters standing lunge stretch Intervention seated HS stretch Parameters supine bent knee fall outs Intervention PPTs Parameters abd marching Intervention bridging Parameters sci fit 6' lv 3 Intervention shuttle 50# BLE x20 25# x20 Parameters supine hip abd/add GTB x20 Intervention BOSU lunge x10 Parameters quad sets/heel slides x15 Intervention lateral/monster steps 1 round PT Treatment Times Therex Total Time 32 Direct Treatment Time 32 Total Treatment Time 32 Goals: Physical Therapy Ortho Goals: MOBILITY: Patient will be able to ambulate for 1 hour in community without difficulty in 4 weeks. MOBILITY: Patient will be able to ascend/descend stairs without difficulty in 4 weeks. IMPAIRMENT: Improve pain from 7/10 to 3/10 or less during prolonged walking in 4 weeks IMPAIRMENT: Improve MMT of the Left Hip to 4+/5 in all planes of movement in 4 weeks IMPAIRMENT: Improve AROM of Left Hip Flexion from 80 degrees to at least 95 degrees in 4 weeks. OTHER: Patient will increase FOTO score from 47 to at least 60 to show MDC/MCII and expected functional outcome in 4 weeks. OTHER: Patient will be able to properly demonstrate independence with HEP in 1 week. Patient Education: Quality of movement with patient demonstrated understanding. Post-Treatment Pain Scale: 1 Assessment: Patient had an expected response to treatment. Skilled Intervention demonstrated by modifications of treatment per exercise log including increased load and safety interventions per exercise log. Progress towards goals as expected. Plan for Next Visit: Treatment Visit with focus on pain control and strengthening Maria R Guzmán PTA STATE LICENSE, [id number] documented in this [id number] History of Present illness Narrative* Leyla Damon, LINUX UNIX ENGINEER - 01/06/2022 11:14 AM EDT Images from the original note were not included. Franco Yi Forrest 1950 CC: 71 y.o. is a he with left hip pain. Chief Complaint Patient presents with Left Hip - Pain . HPI: Hip Pain patient presents the office today with complaints of left hip pain. He reports that years and years ago he had an injury to the pelvis, he ended up fracturing the left side of his pelvis. He presents today with complaints of pain and weakness in the left hip and leg. He reports that over the last 6 months this has become increasingly worse. He has tried OTC pain medications, usuallya Tylenol and aspirin mixture which does seem to help take the edge off. He is now having difficulty with ADLs such as getting his socks and shoes on. He is also having difficulty with lifting that leg into the car commenting that it is very painful. His range of motion has become increasingly less. He does have pain within the groin as well as the anterior thigh. At times he feels as though he has pain all throughout the hip. He did have imaging performed which showed advance degenerative arthritis in the left hip and was then instructed to follow-up with orthopedics for further evaluation. The patient's past medical history, surgical history, social history, family history, medications and allergies were reviewed with the patient today and are available in the chart for further review. PMH: Allergies Allergen Reactions Lisinopril Other (See Comments) Terazosin Other (See Comments) Current Outpatient Medications: ascorbic acid, vitamin C, (ascorbic acid with tadeo hips) 500 MG tablet, Take 500 mg by mouth daily ., Disp: , Rfl: calcium carb/vit D3/minerals (CALCIUM-VITAMIN D ORAL), Take 1 Unspecified by mouth ., Disp: , Rfl: cyanocobalamin, vitamin B-12, (VITAMIN B12 ORAL), Take by mouth ., Disp: , Rfl: magnesium 30 mg tablet, Take 30 mg by mouth 2 (two) times a day ., Disp: , Rfl: omega-3 fatty acids/fish oil (fish oil-omega-3 fatty acids) 300-1,000 mg capsule, Take 2 g by mouthdaily ., Disp: , Rfl: potassium 99 mg Tab, Take by mouth ., Disp: , Rfl: SIMVASTATIN ORAL, Take by mouth ., Disp: , Rfl: CLONIDINE HCL ORAL, Take by mouth ., Disp: , Rfl: multivitamin (THERAGRAN) per tablet, Take 1 tablet by mouth daily ., Disp: , Rfl: Past Medical History: Diagnosis Date Depression Fractures High cholesterol Hypertension Left leg numbness Left leg weakness Numbness of right hand Past Surgical History: Procedure Laterality Date BACK SURGERY JOINT REPLACEMENT Bilateral TKR LUMBAR FUSION TOTAL KNEE ARTHROPLASTY Bilateral Social History Socioeconomic History Marital status: Tobacco Use Smoking status: Never Smokeless tobacco: Never Substance and Sexual Activity Alcohol use: Yes Alcohol/week: 1.0 standard drink Types: 1 Glasses of wine per week ROS: Review of Systems Constitutional: Negative for activity change and fatigue. HENT: Negative for congestion, hearing loss and trouble swallowing. Eyes: Negative for visual disturbance. Respiratory: Negative for chest tightness and shortness of breath. Cardiovascular: Negative for chest pain and palpitations. Gastrointestinal: Negative for abdominal pain, diarrhea, nausea and vomiting. Endocrine: Negative for polydipsia, polyphagia and polyuria. Genitourinary: Negative for decreased urine volume, difficulty urinating and hematuria. Musculoskeletal: Positive for arthralgias, gait problem and myalgias. Negative for joint swelling. Skin: Negative for color change, rash and wound. Allergic/Immunologic: Negative for immunocompromised state. Neurological: Positive for weakness. Negative for dizziness, light-headedness and numbness. Hematological: Does not bruise/bleed easily. Psychiatric/Behavioral: Negative for confusion and sleep disturbance. The patient is not nervous/anxious. PE: Physical Exam Constitutional: Appearance: He is well-developed. HENT: Head: Normocephalic. Eyes: Pupils: Pupils are equal, round, and reactive to light. Cardiovascular: Rate and Rhythm: Normal rate and regular rhythm. Pulmonary: Effort: Pulmonary effort is normal. Breath sounds: Normal breath sounds. Abdominal: General: Bowel sounds are normal. Palpations: Abdomen is soft. Musculoskeletal: General: Tenderness present. Cervical back: Normal range of motion and neck supple. Left hip: Tenderness, bony tenderness and crepitus present. Decreased range of motion. Decreased strength. Legs: Skin: General: Skin is warm and dry. Neurological: Mental Status: He is alert and oriented to person, place, and time. ORTHO: Left Hip Exam Tenderness The patient is experiencing tenderness in the lateral, anterior and ischial tuberosity. Range of Motion Left hip external rotation: 35 degrees with pain. Internal rotation: 15 (with pain) Muscle Strength Left hip normal muscle strength: Pain with adduction and abduction.. Abduction: 4/5 Adduction: 4/5 Flexion: 5/5 Tests HOA: positive Lauren: positive Other Erythema: absent Scars: absent Sensation: normal Pulse: present Imaging:L Hip: Reviewed from [facility] showing severe degenerative changes on the left hip with [id number] appearance, sclerotic and cystic changes noted. Assessment/Plan: After examination and reviewing the patient x-ray images we discussed treatment options for the left hip. At this point in time I did explain that he would most benefit from a left total hip replacement. The patient would like to move forward with this. I will start him in a courseof outpatient physical therapy and the office will contact him to schedule this. I am more than happy to see him back in the office prior to his surgery as needed. He is to continue with any OTC painmedications as needed. He does verbalize understanding is in agreement the treatment plan. Diagnosis: Problem List Items Addressed This Visit None Visit Diagnoses Primary osteoarthritis of left hip - Primary Relevant Orders Ambulatory Ref to [facility] (PT/OT/ST) Follow Up: documented in this [id number] History of Present illness Narrative* Patient presents today for.... * 1 HTN * home readings 140-160/80-100 * home readings up since his daughter and 4 grandkids moved in. He states there is a lot of stress ashis daughter is going through a messy divorce however things with the court have recently started to go their way and readings have improved * pt is on clonidine but can only tolerate 1 tab/day d/t symptoms of dry issues so he had stopped butadvised to take what he can tolerate and re-start * HCTZ - ED * lisinpril - cough * hytrin - dizziness * hydralazine- can take bid but not tide d/t DORANTES so he had stopped but advised to re-start and take the max dose he can tolerate * he denies symptoms of high BP * he is working on diet and ex and has lost 10 lb * previously we have discussed sleep study or referral to cardio if he doesn't want to try new meds but he cont to resist these options as well. I have explained the risk of further damage to the cardiac system if BP left uncontrolled * anxiety - prior appt we started on buspar to see if this would help with mood and in return help with BP - denies change in symptoms and notes inc anxiety with NARCISA 19 threat and how this is affecting home lifestyle but states anxiety is managed give the circumstances with NARCISA and his daughter'sdivorce (family living with him) for this time and denies wanting to try new meds * HE wants to lose weight to bring his BP down naturally. HE is working on this and I do see improvement in his BP reading in our office however I question his home readings. I explained I would still like to see his readings <130/80. He will cont to work on diet and ex and consider re-start meds,trial of new meds or referral * 2 Previously fell out of a tree when he was 18 and is started to have more hip and pelvis pain. He states it is having prob more freq the past 6 mo and would like further work up. He denies scriatica. He states hx of back surgery. sometimes when he is walking he notes hip pain and it seems weak or like it will give out so he starts to compensate how he is moving and then notes other muscles are sore in return * 3 Preventative testing * colonoscopy 2016 - repeat in 10 years * PSA -July 2020 * Reviewed his booster on her COVID vaccine few days ago * flu - interested in high dose flu shot today in office - given [facility] Work Phone: Evaluation note* Diagnosis Primary oste[facility] of [facility]- [facility] Primary osteoarthritis of left hip- Primary Primary osteoarthritis of left hip- Primary Primary osteoarthritis of [facility] Diagnosis Primary osteoarthritis of left hip- Primary Primary osteoarthritis of left hip- Primary Primary osteoarthritis of left hip [facility] Diagnosis Primary osteoarthritis of left hip- Primary Primary osteoarthritis of left hip- Primary Primary osteoarthritis of left hip [facility] Diagnosis Primary osteoarthritis of left hip- Primary Primary osteoarthritis of left hip- Primary Primary osteoarthritis of left hip [facility] Diagnosis Primary osteoarthritis of left hip- Primary Primary osteoarthritis of left hip- Primary Primary osteoarthritis of left hip [facility] Diagnosis Primary osteoarthritis of left hip- Primary Primary osteoarthritis of left hip- Primary Primary osteoarthritis of left hip [facility] Diagnosis Primary osteoarthritis of left hip- Primary Primary osteoarthritis of left hip- Primary Primary osteoarthritis of left [facility] Diagnosis Primary osteoarthritis of left hip- Primary Pre-operative cardiovascular examination- Primary Primary osteoarthritis of left hip Abnormal ECG Nonspecific abnormal electrocardiogram (ECG) (EKG) LVH (left ventricular hypertrophy) Cardiomegaly Hypertension, unspecified type Hyperlipidemia, unspecified hyperlipidemia type Primary osteoarthritis of left [facility] Status post left [facility] replacement- Primary [facility] Diagnosis Status post left hip replacement- Primary [facility] Diagnosis Hypertension, unspecified type- Primary Hyperlipidemia, unspecified hyperlipidemia type Aortic valve insufficiency, etiology of cardiac valve disease unspecified Leg edema Edema [facility] Diagnosis Memory deficit- Primary Memory loss Blood tests prior to treatment or procedure Pre-procedural laboratory examination Benign essential hypertension Essential hypertension, benign Class 1 obesity due to excess calories with serious comorbidity and body mass index (BMI) of 32.0 to 32.9 in adult Situational anxiety documented in this encounter [facility] Work Phone: Evaluation note* Diagnosis Primary osteoarthritis of left shoulder- Primary [facility] Diagnosis Primary osteoarthritis of left shoulder- Primary [facility] Diagnosis Primary osteoarthritis of left shoulder- Primary [facility] Diagnosis Primary osteoarthritis of left shoulder- Primary [facility] Diagnosis Primary osteoarthritis of left shoulder- Primary [facility] Diagnosis Subarachnoid cyst- Primary Cerebral cysts Encephalomalacia on imaging study Memory deficit Memory loss Benign essential hypertension Essential hypertension, benign Mixed hyperlipidemia Class 1 obesity due to excess calories with serious comorbidity and body mass index (BMI) of 32.0 to 32.9 in adult Trigeminal neuralgia of left side of face documented in this encounter [facility] Work Phone: Evaluation note* Diagnosis Nontraumatic complete tear of left rotator cuff- Primary [facility] Diagnosis Primary osteoarthritis of left shoulder- Primary Nontraumatic complete tear of left rotator cuff Hypertension, unspecified type Primary osteoarthritis of left shoulder [facility] Diagnosis Primary osteoarthritis of left shoulder Nontraumatic complete tear of left rotator cuff Primary osteoarthritis of left shoulder Nontraumatic complete tear of left rotator cuff Hypertension, unspecified type Primary osteoarthritis of left shoulder Nontraumatic complete tear of left rotator cuff [facility] Diagnosis Primary osteoarthritis of left shoulder Nontraumatic complete tear of left rotator cuff Primary osteoarthritis of left shoulder Nontraumatic complete tear of left rotator cuff Hypertension, unspecified type Primary osteoarthritis of left shoulder Nontraumatic complete tear of left rotator cuff [facility] Diagnosis Primary osteoarthritis of left shoulder Nontraumatic complete tear of left rotator cuff Primary osteoarthritis of left shoulder- Primary Primary osteoarthritis of left shoulder Nontraumatic complete tear of left rotator cuff [facility] Diagnosis Primary osteoarthritis of left shoulder- Primary Nontraumatic complete tear of left rotator cuff Hypertension, unspecified type Primary osteoarthritis of left shoulder Primary osteoarthritis of left shoulder Nontraumatic complete tear of left rotator cuff Hypertension, unspecified type Primary osteoarthritis of left shoulder Nontraumatic complete tear of left rotator cuff [facility] Diagnosis Status post reverse arthroplasty of left shoulder- Primary [facility] Diagnosis Status post reverse arthroplasty of left shoulder- Primary [facility] Diagnosis Status post reverse arthroplasty of left shoulder- Primary [facility] Diagnosis Status post reverse arthroplasty of left shoulder [facility] Diagnosis Status post reverse arthroplasty of left shoulder [Z96.612]- Primary [facility] Patient presents today for.... * 1 HTN * home readings 150/100s * home readings since his daughter and 4 grandkids moved in have been 160-180 and states there is a lot of stress as his daughter is going through a messy divorce however things with the court have recently started to go their way and readings have improved * pt is on clonidine but can only tolerate 1 tab/day d/t symptoms of dry issues * HCTZ - ED * lisinpril - cough * hytrin - dizziness * hydralazine started but he only took for 2 weeks and no change so stopped * pt is resistant to starting other meds given hx of s.e. * he denies symptoms of high BP * he is working on diet and ex and has lost 10 lb * previously we have discussed sleep study or referral to cardio if he doesn't want to try new meds but he cont to resist these options as well. I have explained the risk of further damage to the cardiac system if BP left uncontrolled * anxiety - last appt started on buspar to see if this would help with mood and in return help with BP - denies change in symptoms and notes inc anxiety with COVID 19 threat and how this is affecting home lifestyle but states anxiety is managed give the circumstances with NARCISA and his daughter's divorce (family living with him) for this time and denies wanting to try new meds * L shoulder pain - he had been referred to parminder - dr Benitez and he stated he needed surgery but pt chose to be referred to PT - he cont with stretches and does note some improvement * 2 Preventative testing * colonoscopy 2017 - repeat in 10 years * -July 2020 -[facility] Work Phone: History of Present illness Narrative* Patient presents today for.... * 1 HTN * home readings 150/100s * home readings since his daughter and 4 grandkids moved in have been 160-180 and states there is a lot of stress as his daughter is going through a messy divorce however things with the court have recently started to go their way and readings have improved * pt is on clonidine but can only tolerate 1 tab/day d/t symptoms of dry issues * HCTZ - ED * lisinpril - cough * hytrin - dizziness * hydralazine- can take bid but not tide d/t DORANTES * clonidine can take daily but not more bc of drowsy * he denies symptoms of high BP * he is working on diet and ex and has lost 10 lb * previously we have discussed sleep study or referral to cardio if he doesn't want to try new meds but he cont to resist these options as well. I have explained the risk of further damage to the cardiac system if BP left uncontrolled * anxiety - last appt started on buspar to see if this would help with mood and in return help with BP - denies change in symptoms and notes inc anxiety with COVID 19 threat and how this is affecting home lifestyle but states anxiety is managed give the circumstances with NARCISA and his daughter's divorce (family living with him) for this time and denies wanting to try new meds * L shoulder pain - he had been referred to parminder Benitez and he stated he needed surgery but pt chose to be referred to PT - he cont with stretches and does note some improvement * 2 Preventative testing * colonoscopy 2017 - repeat in 10 years * PSA -July 2020 [facility] Work Phone: History of Present illness Narrative* Patient presents today for.... * 1 HTN * home readings 150/100s * home readings since his daughter and 4 grandkids moved in have been 160-180 and states there is a lot of stress as his daughter is going through a messy divorce however things with the court have recently started to go their way and readings have improved * pt is on clonidine but can only tolerate 1 tab/day d/t symptoms of dry issues so he had stopped butadvised to take what he can tolerate and re-start * HCTZ - ED * lisinpril - cough * hytrin - dizziness * hydralazine- can take bid but not tide d/t DORANTES so he had stopped but advised to re-start and take the max dose he can tolerate * he denies symptoms of high BP * he is working on diet and ex and has lost 10 lb * previously we have discussed sleep study or referral to cardio if he doesn't want to try new meds but he cont to resist these options as well. I have explained the risk of further damage to the cardiac system if BP left uncontrolled * anxiety - prior appt we started on buspar to see if this would help with mood and in return help with BP - denies change in symptoms and notes inc anxiety with NARCISA 19 threat and how this is affecting home lifestyle but states anxiety is managed give the circumstances with NARCISA and his daughter'sdivorce (family living with him) for this time and denies wanting to try new meds * 2 Preventative testing * colonoscopy 2017 - repeat in 10 years * PSA -July 2020 * Reviewed his booster on her COVID vaccine few days ago * flu - interested in high dose flu shot today in office - given [facility] Work Phone: History of Present illness Narrative* The patient is being seen for the initial annual wellness visit. * Past Medical, Surgical and Family History: reviewed and updated in chart. * Medications and Supplements: Review of all medications by a prescribing practitioner or clinical pharmacist (such as prescriptions, OTCs, herbal therapies and supplements) documented in the medical record. * No, the patient is not using opioids. * Patient Self Assessment of Health Status: good. * Tobacco use: Non-User * Alcohol use: User, As noted in social history * Illicit drug use: Non-User * Current diet: well balanced diet, does consume adequate fluids and does consume caffeine. * Exercise Frequency: regularly. * Depression/Suicide Screening: . * During the past 2 weeks, the patient has not felt down, depressed or hopeless. * During the past 2 weeks, the patient has not felt little interest or pleasure in doing things. * Hearing Impairment: none. * Cognitive Impairment: No cognitive impairment observed, patient or family reported no cognitive impairment. * Bathing: performs independently. * Dressing: performs independently. * Walking: performs independently. * Toileting: performs independently. * Feeding: performs independently. * Personal Hygiene: performs independently. * Managing Finances: performs independently. * Shopping: performs independently. * Managing Medications: performs independently. * Housework / Basic Home Maintenance: performs independently. * Handling Transportation: performs independently. * Preparing Meals: performs independently. * Using the Telephone/ Communication Devices: performs independently. * Falls Risk Screening:. FRANCO has not fallen in the last 6 months. * Home safety risk factors: none. * Patient presents today for.... * 1 Initial Medicare Wellness * 2 HTN * home readings 140-160/80-100 * home readings up since his daughter and 4 grandkids moved in. He states there is a lot of stress ashis daughter is going through a messy divorce however things with the court have recently started to go their way and readings have improved - his daughters fam has since moved out * pt is on clonidine but can only tolerate 1 tab/day d/t symptoms of dry issues so he had stopped butadvised to take what he can tolerate and re-start * HCTZ - ED * lisinopril - cough * hytrin - dizziness * hydralazine- can take bid but not tide d/t DORANTES so he had stopped but advised to re-start and take the max dose he can tolerate * he denies symptoms of high BP * he is working on diet and ex and is losing weight * previously we have discussed sleep study or referral to cardio if he doesn't want to try new meds but he cont to resist these options as well. I have explained the risk of further damage to the cardiac system if BP left uncontrolled * anxiety - prior appt we started on buspar to see if this would help with mood and in return help with BP - denies change in symptoms and notes inc anxiety with NARCISA 19 threat and how this is affecting home lifestyle but states anxiety is managed give the circumstances with NARCISA and his daughter'jeannieivsridevi (family living with him) for this time and denies wanting to try new meds * HE wants to lose weight to bring his BP down naturally. HE is working on this and I do see improvement in his BP reading in our office however I question his home readings. I explained I would still like to see his readings <130/80. He will cont to work on diet and ex and consider re-start meds,trial of new meds or referral * 3 Previously fell out of a tree when he was 18 and is started to have more hip and pelvis pain. He states it is having prob more freq the past 6 mo and would like further work up. He denies scriatica. He states hx of back surgery. sometimes when he is walking he notes hip pain and it seems weak or like it will give out so he starts to compensate how he is moving and then notes other muscles are sore in return * xray were done * 4 to review labs * 5 Preventative testing * colonoscopy 2017 - repeat in 10 years * PSA -July 2021 * COVID - second booster was done recently * flu - interested in high dose flu shot today in office - given * fall - pt states he tripped over a root and doesn't believe he hit the ground but just lost his balance (jun 2021?) -[facility] Work Phone: patient's home Plan of care note* Visit Details Visit Type -SN HH OASIS [place] t of Care Discipline -Correction Problems Problem Start Date Status Goals Interventions Assess and Instruct Home Visit Disciplines: Correction 04/02/2022 Active 1 goal linked to scheduled/documented intervention 4 goal interventions scheduled/documented in this visit Medication Management Disciplines: Correction 04/02/2022 Active 1 goal linked to scheduled/documented intervention 1 goal intervention scheduled/documented in this visit Pain Management Disciplines: Correction 04/02/2022 Active 1 goal linked to scheduled/documented intervention 1 goal intervention scheduled/documented in this visit Wound Care and/or Skin Problems Disciplines: Correction 04/02/2022 Active 1 goal linked to scheduled/documented intervention 1 goal intervention scheduled/documented in this visit Goals Goal Associated Problem Outcome Goal Met? Visit Notes Home Care Plan Assess and Instruct Home Visit No Medications Medication Management No Pain Pain Management No Wound/Incision Wound Care and/or Skin Problems No Interventions Intervention Associated Problem/Goal Status Variance Visit Notes Falls Problem:Assess and Instruct Home Visit Goal:Home Care Plan Completed Clinician taught: patient 4-10 Patient IS at risk for falls (a score of 6 or greater is a predictor of future falls) and clinician instructed: proper footwear and walker Patient/caregiver was able to demonstrate 100% via teachback Safety Problem:Assess and Instruct Home Visit Goal:Home Care Plan Completed Assessed patient vulnerability and home safety risks: yes Equipment reviewed walker Patient at risk for harm or abuse no Family members involved in safety plan for Level 2 or 3 na Discharge Planning Problem:Assess and Instruct Home Visit Goal:Home Care Plan Completed Home Visit DC Planning: Spoke with patient about DC planning. Assessed for limited ambulation related to left hip replacement DC will occur when: patient/caregiver is able to demonstrate independence in care Anticipate DC: On time Patient and/or caregiver response to discharge planning education: verbalized an understanding Plan for Next Visit Problem:Assess and Instruct Home Visit Goal:Home Care Plan Completed Follow up education for next visit: post op education Skilled intervention at next visit: CP assessment, education Instruct Medication Management Problem:Medication Management Goal:Medications Completed Home Visit Med Education: Medication list reconciled. Medication profile and in-home medication list updated with appropriate changes. Discrepanices noted during home visit: none Instructed patient on dosing, purpose, and side effects. Medication education completed today on flexeril medication(s). Patient/caregiver is able to teach back 100% of instruction. Assess Pain Characteristics and Current Pain Regimen and Instruct Methods of Pain Relief Problem:Pain Management Goal:Pain Completed Wound/Incision Problem:Wound Care and/or Skin Problems Goal:Wound/Incision Completed 2 dressings to left hip intact [facility] Visit Details Visit Type - HH OASIS [place] t of Care Discipline -Correction Problems Problem Start Date Status Goals Interventions Assess and Instruct Home Visit Disciplines: Correction 04/02/2022 Active 1 goal linked to scheduled/documented intervention 4 goal interventions scheduled/documented in this visit Medication Management Disciplines: Correction 04/02/2022 Active 1 goal linked to scheduled/documented intervention 1 goal intervention scheduled/documented in this visit Pain Management Disciplines: Correction 04/02/2022 Active 1 goal linked to scheduled/documented intervention 1 goal intervention scheduled/documented in this visit Wound Care and/or Skin Problems Disciplines: Correction 04/02/2022 Active 1 goal linked to scheduled/documented intervention 1 goal intervention scheduled/documented in this visit Goals Goal Associated Problem Outcome Goal Met? Visit Notes Home Care Plan Assess and Instruct Home Visit No Medications Medication Management No Pain Pain Management No Wound/Incision Wound Care and/or Skin Problems No Interventions Intervention Associated Problem/Goal Status Variance Visit Notes Falls Problem:Assess and Instruct Home Visit Goal:Home Care Plan Completed Clinician taught: patient 4-10 Patient IS at risk for falls (a score of 6 or greater is a predictor of future falls) and clinician instructed: proper footwear and walker Patient/caregiver was able to demonstrate 100% via teachback Safety Problem:Assess and Instruct Home Visit Goal:Home Care Plan Completed Assessed patient vulnerability and home safety risks: yes Equipment reviewed walker Patient at risk for harm or abuse no Family members involved in safety plan for Level 2 or 3 na Discharge Planning Problem:Assess and Instruct Home Visit Goal:Home Care Plan Completed Home Visit DC Planning: Spoke with patient about DC planning. Assessed for limited ambulation related to left hip replacement DC will occur when: patient/caregiver is able to demonstrate independence in care Anticipate DC: On time Patient and/or caregiver response to discharge planning education: verbalized an understanding Plan for Next Visit Problem:Assess and Instruct Home Visit Goal:Home Care Plan Completed Follow up education for next visit: post op education Skilled intervention at next visit: CP assessment, education Instruct Medication Management Problem:Medication Management Goal:Medications Completed Home Visit Med Education: Medication list reconciled. Medication profile and in-home medication list updated with appropriate changes. Discrepanices noted during home visit: none Instructed patient on dosing, purpose, and side effects. Medication education completed today on flexeril medication(s). Patient/caregiver is able to teach back 100% of instruction. Assess Pain Characteristics and Current Pain Regimen and Instruct Methods of Pain Relief Problem:Pain Management Goal:Pain Completed Wound/Incision Problem:Wound Care and/or Skin Problems Goal:Wound/Incision Completed 2 dressings to left hip intact [facility] Visit Details Visit Type -SN HH Routine Vi sit Discipline -Correction Problems Problem Start Date Status Goals Interventions Assess and Instruct Home Visit Disciplines: Correction 04/02/2022 Active 1 goal linked to scheduled/documented intervention 4 goal interventions scheduled/documented in this visit Medication Management Disciplines: Correction 04/02/2022 Active 1 goal linked to scheduled/documented intervention 1 goal intervention scheduled/documented in this visit Pain Management Disciplines: Correction 04/02/2022 Active 1 goal linked to scheduled/documented intervention 1 goal intervention scheduled/documented in this visit Wound Care and/or Skin Problems Disciplines: Correction 04/02/2022 Active 1 goal linked to scheduled/documented intervention 1 goal intervention scheduled/documented in this visit Cardiac Disciplines: Correction 04/02/2022 Active 1 goal linked to scheduled/documented intervention 1 goal intervention scheduled/documented in this visit Goals Goal Associated Problem Outcome Goal Met? Visit Notes Home Care Plan Assess and Instruct Home Visit No Medications Medication Management No Pain Pain Management No Wound/Incision Wound Care and/or Skin Problems No Cardiac Function Cardiac No Interventions Intervention Associated Problem/Goal Status Variance Visit Notes Falls Problem:Assess and Instruct Home Visit Goal:Home Care Plan Completed Clinician taught: patient 4-10 Patient IS at risk for falls (a score of 6 or greater is a predictor of future falls) and clinician instructed: keep frequently used items in reach and emergency response system and/or keep phone on you. Patient/caregiver was able to demonstrate 100% via teachback Safety Problem:Assess and Instruct Home Visit Goal:Home Care Plan Completed No safety issues noted. Discharge Planning Problem:Assess and Instruct Home Visit Goal:Home Care Plan Completed Home Visit DC Planning: Spoke with patient about DC planning. Assessed for limited ambulation related to unsteady gait/poor balance DC will occur when: discharge goals met. Anticipate DC: Early Patient and/or caregiver response to discharge planning education: verbalizes understanidng. Plan for Next Visit Problem:Assess and Instruct Home Visit Goal:Home Care Plan Completed Follow up education for next visit: medication management, pain management, falls, post-op care and education. Skilled intervention at next visit: monitor response to treatment regimen. Instruct Medication Management Problem:Medication Management Goal:Medications Completed Home Visit Med Education: Medication list reconciled. Medication profile and in-home medication list updated with appropriate changes. Discrepancies noted during home visit: none Instructed patient on dosing, purpose, and side effects. Medication education completed today on all medication(s). Patient/caregiver is able to teach back 100% of instruction. Assess Pain Characteristics and Current Pain Regimen and Instruct Methods of Pain Relief Problem:Pain Management Goal:Pain Completed Taking Tylenol for pain with adaquate pain control. Wound/Incision Problem:Wound Care and/or Skin Problems Goal:Wound/Incision Completed No need to change dressing at this visit, dressings and intact and occlusive. Instruct Impaired Cardiac Function Problem:Cardiac Goal:Cardiac Function Completed Keeps track of Bp and reports to his PCP. [facility] Visit Details Visit Type -TELEPHONE INTERVIEWER Routine Visi t Discipline -Physical Therapy Problems Problem Start Date Status Goals Interventions Assess and Instruct Home Visit Disciplines: Physical Therapy 04/03/2022 Active 3 goals linked to scheduled/documented interventions 5 goal interventions scheduled/documented in this visit Disease-Specific Rehabilitation Disciplines: Physical Therapy 04/03/2022 Active 1 goal linked to scheduled/documented intervention 1 goal intervention scheduled/documented in this visit Mobility Disciplines: Physical Therapy 04/03/2022 Active 1 goal linked to scheduled/documented intervention 1 goal intervention scheduled/documented in this visit Goals Goal Associated Problem Outcome Goal Met? Visit Notes Pain Assess and Instruct Home Visit No Medications Assess and Instruct Home Visit No Home Care Plan Assess and Instruct Home Visit No Balance Disease-Specific Rehabilitation No Mobility Mobility No Interventions Intervention Associated Problem/Goal Status Variance Visit Notes Pain Management Problem:Assess and Instruct Home Visit Goal:Pain Completed Patient reports: Patient demos good compliance and knowledge of pain management techniques, reports applying ice and resting throughout day in order to control pain symptoms. Clinician taught: patient Clinician instructed on: techniques to decrease pain and edema Patient/caregiver is able to teach back 80% of instruction. Instruct Medication Management Problem:Assess and Instruct Home Visit Goal:Medications Completed Home Visit Med Education: Medication list reconciled. Medication profile and in-home medication list updated with appropriate changes. Discrepanices noted during home visit: none Instructed patient on dosing, purpose, and side effects. Medication education completed today on all medication(s). Patient/caregiver is able to teach back 80% of instruction. Falls Problem:Assess and Instruct Home Visit Goal:Home Care Plan Completed Clinician taught: patient 4-10 Patient IS at risk for falls (a score of 6 or greater is a predictor of future falls) and clinician instructed: assistive device usage, keep frequently used items in reach and emergency response system and/or keep phone on you Patient/caregiver was able to demonstrate 80% via teachback Safety Problem:Assess and Instruct Home Visit Goal:Home Care Plan Completed Assessed patient vulnerability and home safety risks: fall risk Equipment reviewed spc Patient at risk for harm or abuse no Family members involved in safety plan for Level 2 or 3 Plan for Next Visit Problem:Assess and Instruct Home Visit Goal:Home Care Plan Completed Follow up education for next visit: safety precautions Skilled intervention at next visit: Next visit with TELEPHONE INTERVIEWER to continue improving strength and balance in order to maximize safety with ambulation and functional transfers. Balance/Neuromuscular Re-education Problem:Disease-Specif ic Rehabilitation Goal:Balance Completed Patient reports: improved balance Clinician taught: patient Clinician instructed on: exercises to improve functional balance Patient/caregiver is able to teach back 80% of instruction. Instruct Mobility Problem:Mobility Goal:Mobility Completed Patient reports: no falls Clinician taught: patient Clinician instructed on: TELEPHONE INTERVIEWER provides skilled instruct to ambulate with SPC/no AD with TELEPHONE INTERVIEWER S during - provides cues/education to improve overall gait sequencing/pattern to maximize safety and decrease fall risk in order to progress independence towards STGs/LTGs. Patient/caregiver is able to teach back 80% of instruction. [facility] Visit Details Visit Type -SN HH Non-OASIS/ Discipline DC Discipline -Correction Problems Problem Start Date Status Goals Interventions Assess and Instruct Home Visit Disciplines: Correction 04/02/2022 Active 1 goal linked to scheduled/documented intervention 4 goal interventions scheduled/documented in this visit Medication Management Disciplines: Correction 04/02/2022 Active 1 goal linked to scheduled/documented intervention 1 goal intervention scheduled/documented in this visit Pain Management Disciplines: Correction 04/02/2022 Active 1 goal linked to scheduled/documented intervention 1 goal intervention scheduled/documented in this visit Goals Goal Associated Problem Outcome Goal Met? Visit Notes Home Care Plan Assess and Instruct Home Visit No Medications Medication Management No Pain Pain Management No Interventions Intervention Associated Problem/Goal Status Variance Visit Notes Falls Problem:Assess and Instruct Home Visit Goal:Home Care Plan Completed denies falls Safety Problem:Assess and Instruct Home Visit Goal:Home Care Plan Completed Assessed patient vulnerability and home safety risks: environmental Patient at risk for harm or abuse none Family members involved in safety plan for Level 2 or 3 n/a Discharge Planning Problem:Assess and Instruct Home Visit Goal:Home Care Plan Completed Home Visit DC Planning: Spoke with patient about DC planning. Assessed for limited ambulation related to LTHR, unsteady gait/poor balance, dyspnea at rest or with exertion, uncontrolled/unresolv ed pain related to same and poor endurance related to same DC will occur when: 04/18/22 Anticipate DC: Early Patient and/or caregiver response to discharge planning education: stated understanding Plan for Next Visit Problem:Assess and Instruct Home Visit Goal:Home Care Plan Completed Follow up education for next visit: d/c Skilled intervention at next visit: d/c Instruct Medication Management Problem:Medication Management Goal:Medications Completed Home Visit Med Education: Medication list reconciled. Medication profile and in-home medication list updated with appropriate changes. Discrepanices noted during home visit: none Instructed patient on dosing, purpose, and side effects. Medication education completed today on Tylenol medication(s). Patient/caregiver is able to teach back 100% of instruction. Assess Pain Characteristics and Current Pain Regimen and Instruct Methods of Pain Relief Problem:Pain Management Goal:Pain Completed [facility] Visit Details Visit Type -TELEPHONE INTERVIEWER Routine Visi t Discipline -Physical Therapy Problems Problem Start Date Status Goals Interventions Assess and Instruct Home Visit Disciplines: Physical Therapy 04/03/2022 Active 3 goals linked to scheduled/documented interventions 5 goal interventions scheduled/documented in this visit Home Exercise Program Disciplines: Physical Therapy 04/03/2022 Active 1 goal linked to scheduled/documented intervention 1 goal intervention scheduled/documented in this visit Mobility Disciplines: Physical Therapy 04/03/2022 Active 1 goal linked to scheduled/documented intervention 1 goal intervention scheduled/documented in this visit Goals Goal Associated Problem Outcome Goal Met? Visit Notes Pain Assess and Instruct Home Visit No Medications Assess and Instruct Home Visit No Home Care Plan Assess and Instruct Home Visit No Home Exercise Program Home Exercise Program No Mobility Mobility No Interventions Intervention Associated Problem/Goal Status Variance Visit Notes Pain Management Problem:Assess and Instruct Home Visit Goal:Pain Completed Patient reports: Patient demos good compliance and knowledge of pain management techniques, reports applying ice and resting throughout day in order to control pain symptoms. Clinician taught: patient Clinician instructed on: techniques to decrease pain and edema Patient/caregiver is able to teach back 80% of instruction. Instruct Medication Management Problem:Assess and Instruct Home Visit Goal:Medications Completed Home Visit Med Education: Medication list reconciled. Medication profile and in-home medication list updated with appropriate changes. Discrepanices noted during home visit: none Instructed patient on dosing, purpose, and side effects. Medication education completed today on all medication(s). Patient/caregiver is able to teach back 80% of instruction. Falls Problem:Assess and Instruct Home Visit Goal:Home Care Plan Completed Clinician taught: patient 4-10 Patient IS at risk for falls (a score of 6 or greater is a predictor of future falls) and clinician instructed: assistive device usage, keep frequently used items in reach and emergency response system and/or keep phone on you Patient/caregiver was able to demonstrate 80% via teachback Safety Problem:Assess and Instruct Home Visit Goal:Home Care Plan Completed Assessed patient vulnerability and home safety risks: fall risk Equipment reviewed none Patient at risk for harm or abuse no Family members involved in safety plan for Level 2 or 3 Plan for Next Visit Problem:Assess and Instruct Home Visit Goal:Home Care Plan Completed Follow up education for next visit: safety precautions Skilled intervention at next visit: Next visit with TELEPHONE INTERVIEWER to continue improving strength and balance in order to maximize safety with ambulation and functional transfers. Home Exercise Program Problem:Home Exercise Program Goal:Home Exercise Program Task already performed Instruct Mobility Problem:Mobility Goal:Mobility Completed Patient reports: no falls Clinician taught: patient Clinician instructed on: TELEPHONE INTERVIEWER provides skilled instruct to ambulate with no AD for support and TELEPHONE INTERVIEWER Mod I during for safety Patient/caregiver is able to teach back 80% of instruction. [facility] Visit Details Visit Type -PT Non-OASIS/Dis cipl Discharge Discipline -Physical Therapy Problems Problem Start Date Status Goals Interventions Assess and Instruct Home Visit Disciplines: Physical Therapy 04/03/2022 Resolved on 04/16/2022 3 goals linked to scheduled/documented interventions 4 goal interventions scheduled/documented in this visit Home Exercise Program Disciplines: Physical Therapy 04/03/2022 Resolved on 04/16/2022 1 goal linked to scheduled/documented intervention Disease-Specific Rehabilitation Disciplines: Physical Therapy 04/03/2022 Resolved on 04/16/2022 1 goal linked to scheduled/documented intervention Mobility Disciplines: Physical Therapy 04/03/2022 Resolved on 04/16/2022 1 goal linked to scheduled/documented intervention Goals Goal Associated Problem Outcome Goal Met? Visit Notes Pain Assess and Instruct Home Visit Completed Yes Medications Assess and Instruct Home Visit Completed Yes Home Care Plan Assess and Instruct Home Visit Completed Yes Home Exercise Program Home Exercise Program Completed Yes Balance Disease-Specific Rehabilitation Completed Yes Mobility Mobility Completed Yes Interventions Intervention Associated Problem/Goal Status Variance Visit Notes Instruct Medication Management Problem:Assess and Instruct Home Visit Goal:Medications Scheduled Falls Problem:Assess and Instruct Home Visit Goal:Home Care Plan Scheduled Safety Problem:Assess and Instruct Home Visit Goal:Home Care Plan Scheduled Plan for Next Visit Problem:Assess and Instruct Home Visit Goal:Home Care Plan Scheduled documented [facility]* Visit Details Visit Type -SN HH OASIS Disc harge Discipline -Correction Problems Problem Start Date Status Goals Interventions Assess and Instruct Home Visit Disciplines: Correction 04/02/2022 Resolved on 04/16/2022 1 goal linked to scheduled/documented intervention 4 goal interventions scheduled/documented in this visit Medication Management Disciplines: Correction 04/02/2022 Resolved on 04/16/2022 1 goal linked to scheduled/documented intervention 1 goal intervention scheduled/documented in this visit Pain Management Disciplines: Correction 04/02/2022 Resolved on 04/16/2022 1 goal linked to scheduled/documented intervention 1 goal intervention scheduled/documented in this visit Wound Care and/or Skin Problems Disciplines: Correction 04/02/2022 Resolved on 04/16/2022 1 goal linked to scheduled/documented intervention Cardiac Disciplines: Correction 04/02/2022 Resolved on 04/16/2022 1 goal linked to scheduled/documented intervention Goals Goal Associated Problem Outcome Goal Met? Visit Notes Home Care Plan Assess and Instruct Home Visit Completed Yes Medications Medication Management Completed Yes Pain Pain Management Completed Yes Wound/Incision Wound Care and/or Skin Problems Completed Yes Cardiac Function Cardiac Completed Yes Interventions Intervention Associated Problem/Goal Status Variance Visit Notes Falls Problem:Assess and Instruct Home Visit Goal:Home Care Plan Scheduled Safety Problem:Assess and Instruct Home Visit Goal:Home Care Plan Scheduled Discharge Planning Problem:Assess and Instruct Home Visit Goal:Home Care Plan Scheduled Plan for Next Visit Problem:Assess and Instruct Home Visit Goal:Home Care Plan Scheduled Instruct Medication Management Problem:Medication Management Goal:Medications Scheduled Assess Pain Characteristics and Current Pain Regimen and Instruct Methods of Pain Relief Problem:Pain Management Goal:Pain Scheduled documented in this [facility] of care [facility]* Visit Details Visit Type -TELEPHONE INTERVIEWER Routine Visi t Discipline -Physical Therapy Problems Problem Start Date Status Goals Interventions Assess and Instruct Home Visit Disciplines: Physical Therapy 04/03/2022 Active 3 goals linked to scheduled/documented interventions 5 goal interventions scheduled/documented in this visit Disease-Specific Rehabilitation Disciplines: Physical Therapy 04/03/2022 Active 1 goal linked to scheduled/documented intervention 1 goal intervention scheduled/documented in this visit Mobility Disciplines: Physical Therapy 04/03/2022 Active 1 goal linked to scheduled/documented intervention 1 goal intervention scheduled/documented in this visit Goals Goal Associated Problem Outcome Goal Met? Visit Notes Pain Assess and Instruct Home Visit No Medications Assess and Instruct Home Visit No Home Care Plan Assess and Instruct Home Visit No Balance Disease-Specific Rehabilitation No Mobility Mobility No Interventions Intervention Associated Problem/Goal Status Variance Visit Notes Pain Management Problem:Assess and Instruct Home Visit Goal:Pain Completed Patient reports: Patient demos good compliance and knowledge of pain management techniques, reports applying ice and resting throughout day in order to control pain symptoms. Clinician taught: patient Clinician instructed on: techniques to decrease pain and edema Patient/caregiver is able to teach back 80% of instruction. Instruct Medication Management Problem:Assess and Instruct Home Visit Goal:Medications Completed Home Visit Med Education: Medication list reconciled. Medication profile and in-home medication list updated with appropriate changes. Discrepanices noted during home visit: none Instructed patient on dosing, purpose, and side effects. Medication education completed today on all medication(s). Patient/caregiver is able to teach back 80% of instruction. Falls Problem:Assess and Instruct Home Visit Goal:Home Care Plan Completed Clinician taught: patient 4-10 Patient IS at risk for falls (a score of 6 or greater is a predictor of future falls) and clinician instructed: assistive device usage, keep frequently used items in reach and emergency response system and/or keep phone on you Patient/caregiver was able to demonstrate 80% via teachback Safety Problem:Assess and Instruct Home Visit Goal:Home Care Plan Completed Assessed patient vulnerability and home safety risks: fall risk Equipment reviewed spc Patient at risk for harm or abuse no Family members involved in safety plan for Level 2 or 3 Plan for Next Visit Problem:Assess and Instruct Home Visit Goal:Home Care Plan Completed Follow up education for next visit: safety precautions Skilled intervention at next visit: Next visit with TELEPHONE INTERVIEWER to continue improving strength and balance in order to maximize safety with ambulation and functional transfers. Balance/Neuromuscular Re-education Problem:Disease-Specif ic Rehabilitation Goal:Balance Completed Patient reports: improved balance Clinician taught: patient Clinician instructed on: exercises to improve functional balance Patient/caregiver is able to teach back 80% of instruction. Instruct Mobility Problem:Mobility Goal:Mobility Completed Patient reports: no falls Clinician taught: patient Clinician instructed on: TELEPHONE INTERVIEWER provides skilled instruct to ambulate with SPC/no AD with TELEPHONE INTERVIEWER S during - provides cues/education to improve overall gait sequencing/pattern to maximize safety and decrease fall risk in order to progress independence towards STGs/LTGs. Patient/caregiver is able to teach back 80% of instruction. [facility] Visit Details Visit Type -TELEPHONE INTERVIEWER Routine Visi t Discipline -Physical Therapy Problems Problem Start Date Status Goals Interventions Assess and Instruct Home Visit Disciplines: Physical Therapy 04/03/2022 Active 3 goals linked to scheduled/documented interventions 5 goal interventions scheduled/documented in this visit Mobility Disciplines: Physical Therapy 04/03/2022 Active 1 goal linked to scheduled/documented intervention 1 goal intervention scheduled/documented in this visit Goals Goal Associated Problem Outcome Goal Met? Visit Notes Pain Assess and Instruct Home Visit No Medications Assess and Instruct Home Visit No Home Care Plan Assess and Instruct Home Visit No Mobility Mobility No Interventions Intervention Associated Problem/Goal Status Variance Visit Notes Pain Management Problem:Assess and Instruct Home Visit Goal:Pain Completed Patient reports: Patient demos good compliance and knowledge of pain management techniques, reports applying ice and resting throughout day in order to control pain symptoms. Clinician taught: patient Clinician instructed on: techniques to decrease pain and edema Patient/caregiver is able to teach back 80% of instruction. Instruct Medication Management Problem:Assess and Instruct Home Visit Goal:Medications Completed Home Visit Med Education: Medication list reconciled. Medication profile and in-home medication list updated with appropriate changes. Discrepanices noted during home visit: none Instructed patient on dosing, purpose, and side effects. Medication education completed today on all medication(s). Patient/caregiver is able to teach back 80% of instruction. Falls Problem:Assess and Instruct Home Visit Goal:Home Care Plan Completed Clinician taught: patient 4-10 Patient IS at risk for falls (a score of 6 or greater is a predictor of future falls) and clinician instructed: assistive device usage, keep frequently used items in reach and emergency response system and/or keep phone on you Patient/caregiver was able to demonstrate 80% via teachback Safety Problem:Assess and Instruct Home Visit Goal:Home Care Plan Completed Assessed patient vulnerability and home safety risks: fall risk Equipment reviewed spc Patient at risk for harm or abuse no Family members involved in safety plan for Level 2 or 3 Plan for Next Visit Problem:Assess and Instruct Home Visit Goal:Home Care Plan Completed Follow up education for next visit: safety precautions Skilled intervention at next visit: Next visit with TELEPHONE INTERVIEWER to continue improving strength and balance in order to maximize safety with ambulation and functional transfers. Instruct Mobility Problem:Mobility Goal:Mobility Completed Patient reports: no falls Clinician taught: patient and caregiver Clinician instructed on: TELEPHONE INTERVIEWER provides skilled instruct to ambulate with SPC and no AD for support and TELEPHONE INTERVIEWER S during for safety Patient/caregiver is able to teach back 80% of instruction. [facility] Visit Details Visit Type -TELEPHONE INTERVIEWER Routine Visi t Discipline -Physical Therapy Problems Problem Start Date Status Goals Interventions Assess and Instruct Home Visit Disciplines: Physical Therapy 04/03/2022 Active 3 goals linked to scheduled/documented interventions 5 goal interventions scheduled/documented in this visit Home Exercise Program Disciplines: Physical Therapy 04/03/2022 Active 1 goal linked to scheduled/documented intervention 1 goal intervention scheduled/documented in this visit Mobility Disciplines: Physical Therapy 04/03/2022 Active 1 goal linked to scheduled/documented intervention 1 goal intervention scheduled/documented in this visit Goals Goal Associated Problem Outcome Goal Met? Visit Notes Pain Assess and Instruct Home Visit No Medications Assess and Instruct Home Visit No Home Care Plan Assess and Instruct Home Visit No Home Exercise Program Home Exercise Program No Mobility Mobility No Interventions Intervention Associated Problem/Goal Status Variance Visit Notes Pain Management Problem:Assess and Instruct Home Visit Goal:Pain Completed Patient reports: Patient demos good compliance and knowledge of pain management techniques, reports applying ice and resting throughout day in order to control pain symptoms. Clinician taught: patient Clinician instructed on: techniques to decrease pain and edema Patient/caregiver is able to teach back 80% of instruction. Instruct Medication Management Problem:Assess and Instruct Home Visit Goal:Medications Completed Home Visit Med Education: Medication list reconciled. Medication profile and in-home medication list updated with appropriate changes. Discrepanices noted during home visit: none Instructed patient on dosing, purpose, and side effects. Medication education completed today on all medication(s). Patient/caregiver is able to teach back 80% of instruction. Falls Problem:Assess and Instruct Home Visit Goal:Home Care Plan Completed Clinician taught: patient 4-10 Patient IS at risk for falls (a score of 6 or greater is a predictor of future falls) and clinician instructed: assistive device usage, keep frequently used items in reach and emergency response system and/or keep phone on you Patient/caregiver was able to demonstrate 80% via teachback Safety Problem:Assess and Instruct Home Visit Goal:Home Care Plan Completed Assessed patient vulnerability and home safety risks: fall risk Equipment reviewed none Patient at risk for harm or abuse no Family members involved in safety plan for Level 2 or 3 Plan for Next Visit Problem:Assess and Instruct Home Visit Goal:Home Care Plan Completed Follow up education for next visit: safety precautions Skilled intervention at next visit: Next visit with TELEPHONE INTERVIEWER to continue improving strength and balance in order to maximize safety with ambulation and functional transfers. Home Exercise Program Problem:Home Exercise Program Goal:Home Exercise Program Task already performed Instruct Mobility Problem:Mobility Goal:Mobility Completed Patient reports: no falls Clinician taught: patient Clinician instructed on: TELEPHONE INTERVIEWER provides skilled instruct to ambulate with no AD for support and TELEPHONE INTERVIEWER Mod I during for safety Patient/caregiver is able to teach back 80% of instruction. [facility] Vidhi Parikh, PT basting marker called, updated about d/c, stated understanding that PT would complete [place] d/c [facility] Consultation (Routine) - Authorized Specialty Diagnoses / Procedures Referred By Jack barnes Referred To Contact Neurology Diagnoses Subarachnoid cyst Encephalomalacia on imaging study Memory deficit Procedures MO OFFICE/OUTPATIENT NEW HIGH MDM 60-74 MINUTES Pavan Aguirre PA-C [address] [place] [address] Referral ID Status Reason Start Date Expiration Date Visits Requested Visits Authorized [id number] Authorized Specialty Services Required 01/27/2023 07/26/2023 1 1 T [facility] Work Phone: Reason for visit Narrative* Auth/Cert Specialty Diagnoses / Procedures Referred By Jack barnes Referred To Contact Referral ID Status Reason Start Date Expiration Date Visits Re quested Visits Authorized [id number] 1 1 [facility] Summary Purpose Family History No Family History Records Found Mother Name Dates Details Family history of diabetes m ellitus(V18.0, Z83.3) Status:Active Family history of hypertensi on(V17.49, Z82.49) Status:Active Family history of depression (V17.0, Z81.8) Status:Active Family history of renal fail ure(V18.69, Z84.1) Status:Active Father Name Dates Details Family history of diabetes m ellitus(V18.0, Z83.3) Status:Active Family history of hypertensi on(V17.49, Z82.49) Status:Active Family history of cerebrovas cular accident (CVA)(V17.1, Z82.3) Status:Active Family history of coronary a rtery disease(V17.3, Z82.49) Status:Active Family history of malignant neoplasm(V16.9, Z80.9) Status:Active Unknown Family Member Name Dates Details Family history of diabetes m ellitus: Mother, Father(V18.0, Z83.3) Status:Active Family history of hypertensi on: Mother, Father(V17.49, Z82.49) Status:Active Family history of depression : Mother(V17.0, Z81.8) Status:Active Family history of renal fail ure: Mother(V18.69, Z84.1) Status:Active Family history of cerebrovas cular accident (CVA): Father(V17.1, Z82.3) Status:Active Family history of coronary a rtery disease: Father(V17.3, Z82.49) Status:Active Family history of malignant neoplasm: Father(V16.9, Z80.9) Status:Active Unknown Family Member Name Dates Details Family history of diabetes m ellitus: Mother, Father(V18.0, Z83.3) Status:Active Family history of hypertensi on: Mother, Father(V17.49, Z82.49) Status:Active Family history of depression : Mother(V17.0, Z81.8) Status:Active Family history of renal fail ure: Mother(V18.69, Z84.1) Status:Active Family history of cerebrovas cular accident (CVA): Father(V17.1, Z82.3) Status:Active Family history of coronary a rtery disease: Father(V17.3, Z82.49) Status:Active Family history of malignant neoplasm: Father(V16.9, Z80.9) Status:Active Unknown Family Member Name Dates Details Family history of diabetes m ellitus: Mother, Father(V18.0, Z83.3) Status:Active Family history of hypertensi on: Mother, Father(V17.49, Z82.49) Status:Active Family history of depression : Mother(V17.0, Z81.8) Status:Active Family history of renal fail ure: Mother(V18.69, Z84.1) Status:Active Family history of cerebrovas cular accident (CVA): Father(V17.1, Z82.3) Status:Active Family history of coronary a rtery disease: Father(V17.3, Z82.49) Status:Active Family history of malignant neoplasm: Father(V16.9, Z80.9) Status:Active Unknown Family Member Name Dates Details Family history of diabetes m ellitus: Mother, Father(V18.0, Z83.3) Status:Active Family history of hypertensi on: Mother, Father(V17.49, Z82.49) Status:Active Family history of depression : Mother(V17.0, Z81.8) Status:Active Family history of renal fail ure: Mother(V18.69, Z84.1) Status:Active Family history of cerebrovas cular accident (CVA): Father(V17.1, Z82.3) Status:Active Family history of coronary a rtery disease: Father(V17.3, Z82.49) Status:Active Family history of malignant neoplasm: Father(V16.9, Z80.9) Status:Active Unknown Family Member Name Dates Details Family history of diabetes m ellitus: Mother, Father(V18.0, Z83.3) Status:Active Family history of hypertensi on: Mother, Father(V17.49, Z82.49) Status:Active Family history of depression : Mother(V17.0, Z81.8) Status:Active Family history of renal fail ure: Mother(V18.69, Z84.1) Status:Active Family history of cerebrovas cular accident (CVA): Father(V17.1, Z82.3) Status:Active Family history of coronary a rtery disease: Father(V17.3, Z82.49) Status:Active Family history of malignant neoplasm: Father(V16.9, Z80.9) Status:Active Unknown Family Member Name Dates Details Family history of diabetes m ellitus: Mother, Father(V18.0, Z83.3) Status:Active Family history of hypertensi on: Mother, Father(V17.49, Z82.49) Status:Active Family history of depression : Mother(V17.0, Z81.8) Status:Active Family history of renal fail ure: Mother(V18.69, Z84.1) Status:Active Family history of cerebrovas cular accident (CVA): Father(V17.1, Z82.3) Status:Active Family history of coronary a rtery disease: Father(V17.3, Z82.49) Status:Active Family history of malignant neoplasm: Father(V16.9, Z80.9) Status:Active Unknown Family Member Name Dates Details Family history of diabetes m ellitus: Mother, Father(V18.0, Z83.3) Status:Active Family history of hypertensi on: Mother, Father(V17.49, Z82.49) Status:Active Family history of depression : Mother(V17.0, Z81.8) Status:Active Family history of renal fail ure: Mother(V18.69, Z84.1) Status:Active Family history of cerebrovas cular accident (CVA): Father(V17.1, Z82.3) Status:Active Family history of coronary a rtery disease: Father(V17.3, Z82.49) Status:Active Family history of malignant neoplasm: Father(V16.9, Z80.9) Status:Active Unknown Family Member Name Dates Details Family history of diabetes m ellitus: Mother, Father(V18.0, Z83.3) Status:Active Family history of hypertensi on: Mother, Father(V17.49, Z82.49) Status:Active Family history of depression : Mother(V17.0, Z81.8) Status:Active Family history of renal fail ure: Mother(V18.69, Z84.1) Status:Active Family history of cerebrovas cular accident (CVA): Father(V17.1, Z82.3) Status:Active Family history of coronary a rtery disease: Father(V17.3, Z82.49) Status:Active Family history of malignant neoplasm: Father(V16.9, Z80.9) Status:Active Unknown Family Member Name Dates Details Family history of diabetes m ellitus: Mother, Father(V18.0, Z83.3) Status:Active Family history of hypertensi on: Mother, Father(V17.49, Z82.49) Status:Active Family history of depression : Mother(V17.0, Z81.8) Status:Active Family history of renal fail ure: Mother(V18.69, Z84.1) Status:Active Family history of cerebrovas cular accident (CVA): Father(V17.1, Z82.3) Status:Active Family history of coronary a rtery disease: Father(V17.3, Z82.49) Status:Active Family history of malignant neoplasm: Father(V16.9, Z80.9) Status:Active Unknown Family Member Name Dates Details Family history of diabetes m ellitus: Mother, Father(V18.0, Z83.3) Status:Active Family history of hypertensi on: Mother, Father(V17.49, Z82.49) Status:Active Family history of depression : Mother(V17.0, Z81.8) Status:Active Family history of renal fail ure: Mother(V18.69, Z84.1) Status:Active Family history of cerebrovas cular accident (CVA): Father(V17.1, Z82.3) Status:Active Family history of malignant neoplasm: Father(V16.9, Z80.9) Status:Active Family history of coronary a rtery disease: Father(V17.3, Z82.49) Status:Active Unknown Family Member Name Dates Details Family history of diabetes m ellitus: Mother, Father(V18.0, Z83.3) Status:Active Family history of hypertensi on: Mother, Father(V17.49, Z82.49) Status:Active Family history of depression : Mother(V17.0, Z81.8) Status:Active Family history of renal fail ure: Mother(V18.69, Z84.1) Status:Active Family history of cerebrovas cular accident (CVA): Father(V17.1, Z82.3) Status:Active Family history of malignant neoplasm: Father(V16.9, Z80.9) Status:Active Family history of coronary a rtery disease: Father(V17.3, Z82.49) Status:Active Unknown Family Member Name Dates Details Family history of malignant neoplasm: Father(V16.9, Z80.9) Status:Active Family history of coronary a rtery disease: Father(V17.3, Z82.49) Status:Active Family history of cerebrovas cular accident (CVA): Father(V17.1, Z82.3) Status:Active Family history of renal fail ure: Mother(V18.69, Z84.1) Status:Active Family history of depression : Mother(V17.0, Z81.8) Status:Active Family history of hypertensi on: Mother, Father(V17.49, Z82.49) Status:Active Family history of diabetes m ellitus: Mother, Father(V18.0, Z83.3) Status:Active Unknown Family Member Name Dates Details Family history of malignant neoplasm: Father(V16.9, Z80.9) Status:Active Family history of coronary a rtery disease: Father(V17.3, Z82.49) Status:Active Family history of diabetes m ellitus: Mother, Father(V18.0, Z83.3) Status:Active Family history of hypertensi on: Mother, Father(V17.49, Z82.49) Status:Active Family history of depression : Mother(V17.0, Z81.8) Status:Active Family history of renal fail ure: Mother(V18.69, Z84.1) Status:Active Family history of cerebrovas cular accident (CVA): Father(V17.1, Z82.3) Status:Active Unknown Family Member Name Dates Details Family history of malignant neoplasm: Father(V16.9, Z80.9) Status:Active Family history of coronary a rtery disease: Father(V17.3, Z82.49) Status:Active Family history of cerebrovas cular accident (CVA): Father(V17.1, Z82.3) Status:Active Family history of renal fail ure: Mother(V18.69, Z84.1) Status:Active Family history of depression : Mother(V17.0, Z81.8) Status:Active Family history of hypertensi on: Mother, Father(V17.49, Z82.49) Status:Active Family history of diabetes m ellitus: Mother, Father(V18.0, Z83.3) Status:Active Unknown Family Member Name Dates Details Family history of diabetes m ellitus: Mother, Father(V18.0, Z83.3) Status:Active Family history of hypertensi on: Mother, Father(V17.49, Z82.49) Status:Active Family history of depression : Mother(V17.0, Z81.8) Status:Active Family history of renal fail ure: Mother(V18.69, Z84.1) Status:Active Family history of cerebrovas cular accident (CVA): Father(V17.1, Z82.3) Status:Active Family history of coronary a rtery disease: Father(V17.3, Z82.49) Status:Active Family history of malignant neoplasm: Father(V16.9, Z80.9) Status:Active Unknown Family Member Name Dates Details Family history of diabetes m ellitus: Mother, Father(V18.0, Z83.3) Status:Active Family history of hypertensi on: Mother, Father(V17.49, Z82.49) Status:Active Family history of depression : Mother(V17.0, Z81.8) Status:Active Family history of renal fail ure: Mother(V18.69, Z84.1) Status:Active Family history of cerebrovas cular accident (CVA): Father(V17.1, Z82.3) Status:Active Family history of malignant neoplasm: Father(V16.9, Z80.9) Status:Active Family history of coronary a rtery disease: Father(V17.3, Z82.49) Status:Active Unknown Family Member Name Dates Details Family history of depression : Mother(V17.0, Z81.8) Status:Active Family history of renal fail ure: Mother(V18.69, Z84.1) Status:Active Family history of cerebrovas cular accident (CVA): Father(V17.1, Z82.3) Status:Active Family history of malignant neoplasm: Father(V16.9, Z80.9) Status:Active Family history of coronary a rtery disease: Father(V17.3, Z82.49) Status:Active Family history of hypertensi on: Mother, Father(V17.49, Z82.49) Status:Active Family history of diabetes m ellitus: Mother, Father(V18.0, Z83.3) Status:Active Unknown Family Member Name Dates Details Family history of diabetes m ellitus: Mother, Father(V18.0, Z83.3) Status:Active Family history of hypertensi on: Mother, Father(V17.49, Z82.49) Status:Active Family history of depression : Mother(V17.0, Z81.8) Status:Active Family history of renal fail ure: Mother(V18.69, Z84.1) Status:Active Family history of cerebrovas cular accident (CVA): Father(V17.1, Z82.3) Status:Active Family history of malignant neoplasm: Father(V16.9, Z80.9) Status:Active Family history of coronary a rtery disease: Father(V17.3, Z82.49) Status:Active Advance Directives No Advanced Directives Records FoundDocuments on File Type Date Recorded 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 Full Code Date Activated Date Inactivated Comments 03/31/2022 2:24 PM 04/01/2022 12:51 PM Latest Code Status on File Code Status Date Activated Date Inactivated Comments Full Code 04/02/2022 12:03 PM Code Stat us reflects patient's informed choice. Code Status History Code Status Date Activated Date Inactivated Comments Full Code 03/31/2022 2:24 PM 04/01/2022 12:51 PM Latest Code Status on File Code Status Date Activated Date Inactivated Comments Full Code 04/02/2022 12:03 PM Code Stat us reflects patient's informed choice. 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 Full Code 03/31/2022 2:24 PM 04/01/2022 12:51 PM Latest Code Status on File Code Status Date Activated Date Inactivated Comments Full Code 04/01/2023 10:59 AM 04/02/2023 1:39 PM Code Status History Code Status Date Activated Date Inactivated Comments Full Code 04/02/2022 12:03 PM 04/01/2023 5:32 AM Code Status reflects patient's informed choice. Full Code 03/31/2022 2:24 PM 04/01/2022 12:51 PM History of Present Illness * Leyla Damon, [employer] - 05/18/2019 11:27 AM EST Franco Yi [place] 1950 CC: 68 y.o. is a he with left shoulder pain. Chief Complaint Patient presents with Left Shoulder - Pain . HPI: Shoulder Pain: Patient complains of left shoulder pain. He states that this has been going on for years and progressively getting to the point where he is losing function in the arm. 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 He also states he has difficulty when reaching out tograb something or for instance when he goes to pay at a fast food restaurant through the drive-through. Up until couple weeks ago he had not been using ibuprofen but ended up having to have a root canal done on a tooth. He used ibuprofen for the pain after the root canal and found that it did also help his shoulder. He is continue to use the ibuprofen he states which does help with the left shoulder pain. He is also tried to continue exercises that were given to him by his physical therapist but finds that the more therapy he does with the shoulder the more pain he starts to have. He did do acourse of outpatient physical therapy that ended this past April. He has gone to his primary care provider and had x-rays and an MRI of the left shoulder done. The x-rays show moderate to severe glenohumeral arthritis as well as moderate AC arthritis. The MRI shows partial tears to the rotator cuff and moderate to severe glenohumeral arthritis in the left shoulder. PMH: No Known Allergies Current Outpatient Medications: CLONIDINE HCL ORAL, Take by mouth ., Disp: , Rfl: cyanocobalamin, vitamin B-12, (VITAMIN B12 ORAL), Take by mouth ., Disp: , Rfl: multivitamin (multivitamin) per tablet, Take 1 tablet by mouth daily ., Disp: , Rfl: potassium 99 mg Tab, Take by mouth ., Disp: , Rfl: SIMVASTATIN ORAL, Take by mouth ., Disp: , Rfl: Past Medical History: Diagnosis Date Depression Fractures High cholesterol Hypertension Past Surgical History: Procedure Laterality Date BACK SURGERY JOINT REPLACEMENT Bilateral TKR Social History Socioeconomic History Marital status: Spouse name: Not on file Number of children: Not on file Years of education: Not on file Highest education level: Not on file Occupational History Not on file Social Needs Financial resource strain: Not on file Food insecurity Worry: Not on file Inability: Not on file Transportation needs Medical: Not on file Non-medical: Not on file Tobacco Use Smoking status: Never Smoker Smokeless tobacco: Never Used Substance and Sexual Activity Alcohol use: Not Currently Drug use: Not on file Sexual activity: Not on file Lifestyle Physical activity Days per week: Not on file Minutes per session: Not on file Stress: Not on file Relationships Social connections Talks on phone: Not on file Gets together: Not on file Attends orthodoxy service: Not on file Active member of club or organization: Not on file Attends meetings of clubs or organizations: Not on file Relationship status: Not on file Other Topics Concern Not on file Social History Narrative Not on file The patient's past medical history, surgical history, social history, family history, medications and allergies were reviewed with the patient today and are available in the chart for further review. ROS: Review of Systems Constitutional: Negative for activity change and fatigue. HENT: Negative for congestion, hearing loss and trouble swallowing. Eyes: Negative for visual disturbance. Respiratory: Negative for chest tightness and shortness of breath. Cardiovascular: Negative for chest pain and palpitations. Gastrointestinal: Negative for abdominal pain, diarrhea, nausea and vomiting. Endocrine: Negative for polydipsia, polyphagia and polyuria. Genitourinary: Negative for decreased urine volume, difficulty urinating and hematuria. Musculoskeletal: Positive for arthralgias. Negative for joint swelling and myalgias. Skin: Negative for color change, rash and wound. Allergic/Immunologic: Negative for immunocompromised state. Neurological: Negative for dizziness, weakness, light-headedness and numbness. Hematological: Does not bruise/bleed easily. Psychiatric/Behavioral: Negative for confusion and sleep disturbance. The patient is not nervous/anxious. PE: Physical Exam Constitutional: He is oriented to person, place, and time. He appears well- developed and well-nourished. HENT: Head: Normocephalic. Eyes: Pupils are equal, round, and reactive to light. Neck: Normal range of motion. Neck supple. Cardiovascular: Normal rate and regular rhythm. Pulmonary/Chest: Effort normal and breath sounds normal. Abdominal: Soft. Bowel sounds are normal. Musculoskeletal: General: Tenderness present. Left shoulder: He exhibits decreased range of motion, tenderness, pain and decreased strength. Neurological: He is alert and oriented to person, place, and time. Skin: Skin is warm and dry. Left Shoulder Exam Tenderness The patient is experiencing tenderness in the acromion and acromioclavicular joint. Range of Motion Active abduction: abnormal Passive abduction: abnormal Extension: abnormal External rotation: abnormal Forward flexion: abnormal Internal rotation 0 degrees: abnormal Muscle Strength Supraspinatus: 4/5 Subscapularis: 4/5 Tests Cross arm: positive Impingement: positive Drop arm: positive Other Erythema: absent Scars: absent Sensation: normal Pulse: present Comments: +Empty can +Full can + Obriens +Speeds Imaging: L Shoulder Moderate to severe osteoarthritis glenohumeral joint. L Shoulder MRI Advanced glenohumeral osteoarthritis left shoulder. Extensive nearly circumferentialdegenerative labral tearing. Small amount of full- thickness tearing of the superior fibers of the subscapularis. Partial thickness distal supraspinatus tendon tearing. Biceps tendinosis with mild medial subluxation. Assessment/Plan: After examination and reviewing of the patient x-rays and MRI images we discussed both conservative and surgical measures of treatment for the left shoulder pain and decreased range of motion. At this point in time he has multiple issues he is dealing with at home. He recently had his daughter and grandchildren move in with them which is caused an increased level of stress. He states that this point in time he does not feel that he is able to think about having the left shoulder replaced. I did offer him a cortisone injection to the left shoulder which he politely declined today. He states that he would like to continue to try and use the ibuprofen as needed for pain. He states that he would also try to start the home exercise therapy program for the left shoulder and coordination with use of the ibuprofen. I informed him that that if there was no improvement with the ibuprofen use that I would be happy to give him a injection into the left shoulder. If he has continued progression of pain and continued decrease range of motion I will have him see Dr. Carvajal to discuss a left shoulder replacement. The patient verbalized understanding and is in agreement with this treatment plan. I will see him as needed. Diagnosis: Problem List Items Addressed This Visit None Visit Diagnoses Articular cartilage disorder of shoulder region, left Follow Up: No follow-ups on file. Leyla Damon CNP documented in this encounter Assessments Diagnosis Articular cartilage disorder of shoulder region, left Chief Complaint 3MO BP CHECK..TOOK HYDRALAZINE FOR APPROX 2 WEEKS DID NOT SEE A CHANGE IN BP SO STOPPED THE MEDICATION FEELS BP WILL COME DOWN WITH WT LOSS AND LESS STRESS2 MO F/U BP/MED CHECK; PT STOPPED TAKING THE HYDRALAZINE DUE TO DORANTES AND THE CLONIDINE DUE TO FEELINGDROWSY AFTER TAKING. PT HAS BP READINGS2 MO F/U BP/MED CHECK; PT STOPPED TAKING THE HYDRALAZINE DUE TO DORANTES AND THE CLONIDINE DUE TO FEELINGDROWSY AFTER TAKING. PT HAS BP READINGS2 MONTH F/U BP AND MED CHECK. PT NOT TAKING CLONIDINE OR HYDRALAZINE FOR BP. HE IS DIETING AND LOSING WEIGHT TO DECREASE HIS B/PMEDICARE WELLNESS; F/U LABS; PT STOPPED TAKING HYDRALAZINE AND CLONIDINE-HE HAS BEEN DIETING AND EXERCISING AND HAS BP READINGS; C/O L HIP PAIN FROM AN OLD INJURY-FELL OUT OF A TREE 50 SOME YEARS AGO- HAS STARTED WITH PAIN IN THE LAST YEARBP CHECK NOT TAKING ANY BP MEDS. HAS LOG WITH HIM6 MONTH F/U LABS. HAS BP LOG6 MONTH F/U LABS. HAS BP LOG Reason for Referral Specialty Diagnoses / Procedures Referred By Contac t Referred To Contact Rehabilitation Diagnoses Primary osteoarthritis of left hip Leyla Damon, [employer] ENG[employer] [address] [place] [address] [facility] [address] [place] [address] Referral ID Status Reason Start Date Expiration Date V isits Requested Visits Authorized [id number] Pending Review 01/06/2022 01/06/2023 1 1 Specialty Diagnoses / Procedures Referred By Contac t Referred To Contact Cardiology Diagnoses Abnormal ECG LVH (left ventricular hypertrophy) Procedures Echocardiogram complete Heidi Tejeda MD [address] [place] [id number] Referral ID Status Reason Start Date Expiration Date V isits Requested Visits Authorized [id number] New Request 03/03/2022 03/03/2023 1 1 Specialty Diagnoses / Procedures Referred By Contac t Referred To Contact Radiology Diagnoses Memory deficit Procedures MR brain w and wo IV contrast Pavan Aguirre PA-C [address] [place] [address] Referral ID Status Reason Start Date Expiration Date Visits Requested Visits Authorized [id number] Authorized Perform Procedure 01/07/2023 07/06/2023 1 1 Specialty Diagnoses / Procedures Referred By Contac t Referred To Contact Rehabilitation Diagnoses Primary osteoarthritis of left shoulder Leyla Damon, [employer] ENGINE[employer] [address] [place] [address] [facility] [address] [place] [address] Referral ID Status Reason Start Date Expiration Date V isits Requested Visits Authorized [id number] Pending Review 01/06/2023 01/06/2024 1 1 Specialty Diagnoses / Procedures Referred By Contac t Referred To Contact Radiology Diagnoses Nontraumatic complete tear of left rotator cuff Procedures MR Shoulder Left Without Contrast Leyla Damon, CHERI [address] [place] [address] Referral ID Status Reason Start Date Expiration Date V isits Requested Visits Authorized [id number] New Request 02/03/2023 02/03/2024 1 1 Specialty Diagnoses / Procedures Referred By Contac t Referred To Contact Rehabilitation Diagnoses Status post reverse arthroplasty of left shoulder Kristina Carvajal MD [address] [place] [address] [facility] [id number] [place] [address] Referral ID Status Reason Start Date Expiration Date V isits Requested Visits Authorized [id number] Pending Review 05/15/2023 05/14/2024 1 1 Additional Source Comments (unrecognized sect ion and content) No Status Records FoundNo Status Records FoundNo Status Records FoundNo Status Records FoundNo Status Records FoundNo Status Records FoundNo Status Records FoundNo Status Records FoundNo Status Records Found INFORMATION SOURCE (unrecogn ized section and content) DATE CREATED AUTHOR AUTHOR'S ORGANIZ ATION 01/12/2022 [facility] DATE CREATED AUTHOR AUTHOR'S ORGANIZ ATION 04/12/2022 [facility] DATE CREATED AUTHOR AUTHOR'S ORGANIZ ATION 04/21/2022 [facility] DATE CREATED AUTHOR AUTHOR'S ORGANIZ ATION 08/11/2022 [facility] DATE CREATED AUTHOR AUTHOR'S ORGANIZ ATION 01/17/2023 [facility] DATE CREATED AUTHOR AUTHOR'S ORGANIZ ATION 01/28/2023 [facility] DATE CREATED AUTHOR AUTHOR'S ORGANIZ ATION 05/20/2023 [facility] DATE CREATED AUTHOR AUTHOR'S ORGANIZ ATION 06/03/2023 [facility] Reason for Visit (unrecogniz ed section and content) Status Reason Specialty Diagnoses / Procedures Referred By Contact Referred To Contact Closed Sports Medicine Diagnoses Articular cartilage disorder of shoulder region, left Pavan Aguirre PA-C [address] [place] [address] DamonLeyla, LINUX UNIX ENGINEER [address] [place] [address] Reason Comments Pain Reason Comments Physical Therapy Specialty Diagnoses / Procedures Referred By Contac t Referred To Contact Rehabilitation Diagnoses Primary osteoarthritis of left hip Leyla Damon, CHERI [address] [place] [address] [facility] [place] [address] [address] [place] [address] Referral ID Status Reason Start Date Expiration Date V isits Requested Visits Authorized [id number] Authorized 01/06/2022 01/06/2023 9 199 Reason Comments Pre-op Exam Per Dr. Carvajal for left total hip replacement/scheduled for 03/31/22 Specialty Diagnoses / Procedures Referred By Contac t Referred To Contact Cardiology Diagnoses Primary osteoarthritis of left hip Kristina Carvajal MD [address] [place] [address] [facility] [address] [place], [place] [address] [address] Referral ID Status Reason Start Date Expiration Date V isits Requested Visits Authorized [id number] Closed Specialty Services Required/Myranda ent's Best Interest 01/14/2022 01/14/2023 1 1 Reason Comments Advice Only Specialty Diagnoses / Procedures Referred By Contac t Referred To Contact Referral ID Status Reason Start Date Expiration Date Visits Re quested Visits Authorized [id number] 1 1 Reason Comments Follow-up Suture / Staple Removal Wound Check Reason Comments Follow-up Reason Comments Follow-up 4 mo/no cardiac conc erns today Reason Comments Referral To a neurologist for dementia and alzheimer Specialty Diagnoses / Procedures Referred By Contac t Referred To Contact Rehabilitation Diagnoses Primary osteoarthritis of left shoulder Leyla Damon CNP [id number] [facility] [address] [place] [address] Referral ID Status Reason Start Date Expiration Date V isits Requested Visits Authorized [id number] Pending Review 01/06/2023 01/06/2024 9 9 Referral ID Status Reason Start Date Expiration Date V isits Requested Visits Authorized [id number] Authorized 01/06/2023 01/06/2024 9 9 Reason Comments Follow-up 3 wk MRI of brain Reason Comments Follow-up Reason Comments Pre-op Exam Specialty Diagnoses / Procedures Referred By Contac t Referred To Contact Rehabilitation Diagnoses Status post reverse arthroplasty of left shoulder Kristina Carvajal MD [id number] [facility] [address] [place] [address] Referral ID Status Reason Start Date Expiration Date V isits Requested Visits Authorized [id number] Authorized 05/15/2023 05/14/2024 9 199 Care Teams (unrecognized sec tion and content) Bail Agent Relationship Specialty Start Date End Date Pavan Aguirre PA-C [address] [place] [address] PCP - General Physician Edge Molder 05/17/19 Bail Agent Relationship Specialty Start Date End Date NorahPavan muñoz PA-C [address] [place] [address] PCP - General Physician Edge Molder 05/17/19 Bail Agent Relationship Specialty Start Date End Date Pavan Aguirre PA-C [address] [place] [address] PCP - General Physician Edge Molder 05/17/19 Bail Agent Relationship Specialty Start Date End Date CorinthPavan muñoz PA-C [address] [place] [address] PCP - General Physician Edge Molder 05/17/19 Bail Agent Relationship Specialty Start Date End Date NorahPavan muñoz PA-C [address] [place] [address] PCP - General Physician Edge Molder 05/17/19 Bail Agent Relationship Specialty Start Date End Date NorahPavan muñoz PA-C [address] [place] [address] PCP - General Physician Edge Molder 05/17/19 Bail Agent Relationship Specialty Start Date End Date NorahPavan muñoz PA-C [address] [place] [address] PCP - General Physician Edge Molder 05/17/19 Bail Agent Relationship Specialty Start Date End Date NorahPavan muñoz PA-C [address] [place] [address] PCP - General Physician Edge Molder 05/17/19 Bail Agent Relationship Specialty Start Date End Date CorinthPavan muñoz PA-C [address] [place] [address] PCP - General Physician Edge Molder 05/17/19 Bail Agent Relationship Specialty Start Date End Date CorinthPavan muñoz PA-C [address] [place] [address] PCP - General Physician Edge Molder 05/17/19 Bail Agent Relationship Specialty Start Date End Date CorinthPavan muñoz PA-C [address] [place] [address] PCP - General Physician Edge Molder 05/17/19 Bail Agent Relationship Specialty Start Date End Date Pavan Aguirre PA-C [address] [place] [address] PCP - General Physician Edge Molder 05/17/19 Bail Agent Relationship Specialty Start Date End Date Pavan Aguirre PA-C [address] [place] [address] PCP - General Physician Edge Molder 05/17/19 Bail Agent Relationship Specialty Start Date End Date Pavan Aguirre PA-C [address] [place] [address] PCP - General Physician Edge Molder 05/17/19 Bail Agent Relationship Specialty Start Date End Date Pavan Aguirre PA-C [address] [place] [address] PCP - General Physician Edge Molder 05/17/19 Bail Agent Relationship Specialty Start Date End Date Pavan Aguirre PA-C [address] [place] [address] PCP - General Physician Edge Molder 05/17/19 Bail Agent Relationship Specialty Start Date End Date Pavan Aguirre PA-C [address] [place] [address] PCP - General 01/19/20 Bail Agent Relationship Specialty Start Date End Date Pavan Aguirre PA-C [address] [place] [address] PCP - General Physician Edge Molder 05/17/19 Bail Agent Relationship Specialty Start Date End Date Pavan Aguirre PA-C [address] [place] [place] [address] PCP - General Physician Edge Molder 05/17/19 Bail Agent Relationship Specialty Start Date End Date Pavan Aguirre PA-C [address] [place] [address] PCP - General Physician Edge Molder 05/17/19 Bail Agent Relationship Specialty Start Date End Date Pavan Aguirre PA-C [address] [place] [address] PCP - General Physician Edge Molder 05/17/19 Bail Agent Relationship Specialty Start Date End Date Pavan Aguirre PA-C [address] [place] [address] PCP - General Physician Edge Molder 05/17/19 Bail Agent Relationship Specialty Start Date End Date Pavan Aguirre PA-C [address] [place] [address] PCP - General 01/19/20 Bail Agent Relationship Specialty Start Date End Date Pavan Aguirre PA-C [address] [place] [address] PCP - General Physician Edge Molder 05/17/19 Bail Agent Relationship Specialty Start Date End Date Pavan Aguirre PA-C [address] [place] [address] PCP - General Physician Edge Molder 05/17/19 Bail Agent Relationship Specialty Start Date End Date Pavan Aguirre PA-C [address] [place] [address] PCP - General Physician Edge Molder 05/17/19 Bail Agent Relationship Specialty Start Date End Date Pavan Aguirre PA-C [address] [place] [address] PCP - General Physician Edge Molder 05/17/19 Bail Agent Relationship Specialty Start Date End Date Pavan Aguirre PA-C [address] [place] [address] PCP - General Physician Edge Molder 05/17/19 Bail Agent Relationship Specialty Start Date End Date Pavan Aguirre PA-C [address] [place] [address] PCP - General Physician Edge Molder 05/17/19 Bail Agent Relationship Specialty Start Date End Date Pavan Aguirre PA-C [address] [place] [address] PCP - General Physician Edge Molder 05/17/19 Bail Agent Relationship Specialty Start Date End Date Pavan Aguirre PA-C [address] [place] [address] PCP - General Physician Edge Molder 05/17/19 Bail Agent Relationship Specialty Start Date End Date Pavan Aguirre PA-C [address] [place] [address] PCP - General Physician Edge Molder 05/17/19 Bail Agent Relationship Specialty Start Date End Date Pavan Aguirre PA-C [address] [place] [address] PCP - General Physician Edge Molder 05/17/19 Bail Agent Relationship Specialty Start Date End Date Pavan Aguirre PA-C [address] [place] [address] PCP - General Physician Edge Molder 05/17/19 FOR RECORDS PERTAINING TO PATIENTS WHO ARE OR HAVE BEEN ENROLLED IN A CHEMICAL DEPENDENCY/SUBSTANCEABUSE PROGRAM, SOME INFORMATION MAY BE OMITTED. This clinical summary was aggregated from multiple sources. Caution should be exercised in using it in the provision of clinical care. This summary normalizes information from multiple sources, and as a consequence, information in this document may materially change the coding, format and clinical context of patient data. In addition, data may be omitted in some cases. CLINICAL DECISIONS SHOULD BE BASED ON THE PRIMARY CLINICAL RECORDS. [facility]. provides no warranty or guarantee of the accuracy or completeness of information in this document.
[2023-06-03 10:51] LABS: Hematocrit 45.8 % (40-54); Hemoglobin 14.7 g/dL (13.0-16.5); Mean Corp Hgb Conc 32.1 g/dL (32-36); Mean Corpuscular Hgb 29.2 pg (27.0-32.0); Mean Corpuscular Volume 90.9 fL (80-94); Mean Platelet Vol. 10.5 fl (6.2-12.0); Platelet Count 340 K/mm3 (150-450); RBC Distribution Width CV 12.9 % (11.6-14.6); RBC Distribution Width SD 42.7 fl (35.1-43.9); Red Blood Count 5.04 M/mm3 (4.6-6.2); White Blood Count 7.9 K/mm3 (4.4-11.0)
[2023-06-03 11:21] LABS: Vitamin B12 844 pg/mL (211-911)
[2023-06-03 12:29] LABS: ALB/GLOB Ratio 0.9 RATIO (0.9-2.4); AST(SGOT) 22 U/L (15-37); Alanine Aminotransfer ALT/SGPT 29 U/L (16-61); Albumin, Serum 3.6 g/dL (3.2-5.0); Alkaline Phosphatase 82 U/L (45-117); Anion Gap 4 (5-15); BUN 18 mg/dL (7-18); BUN/Creat Ratio 18.4 RATIO (10-20); Calcium,Total 9.5 mg/dL (8.5-10.1); Chloride 109 mmol/L (98-107); Creatinine, Serum 0.98 mg/dL (0.70-1.30); EST Glomerular Filtration Rate 80 mL/min (>60); Est Glom Filt Rate - Afr Amer 97 mL/min (>60); Globulin 3.8 g/dL (2.2-4.2); Glucose 108 mg/dL (74-106); Potassium 4.5 mmol/L (3.5-5.1); Protein, Total 7.4 g/dL (6.4-8.2); Sodium Level 140 mmol/L (136-145)
[2023-06-11 03:07] LABS: Free Kappa Light Chains 22.2 mg/L (3.3-19.4); Free Lambda Light Chains 21.3 mg/L (5.7-26.3)
== END | disposition home or self-care (01) ==
LOC: MTLAB 08:54
PROVIDERS: PCP Physician Assistant Medical; Referring Provider Psychiatry & Neurology Neurology; Visit Provider Psychiatry & Neurology Neurology
DX: G62.9 Polyneuropathy, unspecified (principal); F03.90 Unspecified dementia, unspecified severity, without behavioral disturbance, psychotic disturbance, mood disturbance, and anxiety; Z87.820 Personal history of traumatic brain injury
CPT/HCPCS: 36415; 80053; 82607; 82746; 83883; 84425; 84443; 85027

== ENCOUNTER → 2023-09-08 | Outpatient (CLI) | payer MEDICARE, SELFPAY ==
[2023-09-11 14:10] LABS: Albumin 3.8 g/dL (2.9-4.4); Alpha-1-Globulins 0.2 g/dL (0.0-0.4); Alpha-2-Globulins 0.6 g/dL (0.4-1.0); Gamma Globulin 0.7 g/dL (0.4-1.8); Immunoglobulin A 403 mg/dL (61-437); Immunoglobulin G 905 mg/dL (603-1613); Immunoglobulin M 42 mg/dL (15-143); PROEL- TOTAL PROTEIN 6.5 g/dL (6.0-8.5)
== END | disposition home or self-care (01) ==
LOC: MTLAB 16:17
PROVIDERS: PCP Physician Assistant Medical; Referring Provider Psychiatry & Neurology Neurology; Visit Provider Psychiatry & Neurology Neurology
DX: G62.9 Polyneuropathy, unspecified (principal)
CPT/HCPCS: 36415; 82784; 84165; 86334; 86335